=== PATIENT | female | born 1945 | race Hispanic/Latino ===

== ENCOUNTER 2018-12-26 10:06 | Emergency (ER) | payer MEDICARE, OTHER ==
[2018-12-26 10:11] VITALS: TEMP 97.7; BMI 32.9
--- NOTE | 2018-12-26 11:00 | ED PDOC ---
HPI: Hypertension/Hypotension Time Seen by Provider: 12/26/18 10:14 Chief Complaint (Nursing): High Blood Pressure Chief Complaint (Provider): High Blood Pressure History Per: Patient History/Exam Limitations: no limitations Associated Symptoms: Headache. denies: Chest Pain Additional Complaint(s): 73 year old female with a past medical history of HTN, who presents to the emergency department after being referred from cardiology. He was observed to have an elevated blood pressure while having an echocardiogram. Patient states he has not taken his blood pressure medication in over x2 weeks. He is complaining of a headache but no chest pain or shortness of breath. PMD: Jermain Romano Past Medical History Reviewed: Historical Data, Nursing Documentation, Vital Signs Vital Signs: Last Vital Signs Temp 97.7 F 12/26/18 10:11 Pulse 60 12/26/18 10:37 Resp 17 12/26/18 10:11 BP 161/87 H 12/26/18 10:37 Pulse Ox 98 12/26/18 10:11 - Medical History PMH: HTN - Surgical History Surgical History: No Surg Hx - Family History Family History: States: Unknown Family Hx - Home Medications Home Medications: Ambulatory Orders Medication Instructions Recorded Aliskiren [Tekturna] 300 mg PO DAILY #30 tab 12/26/18 - Allergies Allergies/Adverse Reactions: Allergies Allergy/AdvReac Type Severity Reaction Status Date / Time No Known Allergies Allergy Verified 12/26/18 11:01 Review of Systems ROS Statement: Except As Marked, All Systems Reviewed And Found Negative Cardiovascular: Negative for: Chest Pain Respiratory: Negative for: Shortness of Breath Neurological: Positive for: Headache Physical Exam - Reviewed Nursing Documentation Reviewed: Yes Vital Signs Reviewed: Yes - Physical Exam Appears: Positive for: Non-toxic, No Acute Distress Head Exam: Positive for: ATRAUMATIC, NORMOCEPHALIC Skin: Positive for: Normal Color, Warm, Dry Eye Exam: Positive for: Normal appearance, EOMI, PERRL Neck: Positive for: Normal, Painless ROM, Supple Cardiovascular/Chest: Positive for: Regular Rate, Rhythm. Negative for: Murmur Respiratory: Positive for: Normal Breath Sounds. Negative for: Respiratory Distress Extremity: Positive for: Normal ROM. Negative for: Pedal Edema, Deformity Neurologic/Psych: Positive for: Alert. Negative for: Motor/Sensory Deficits - ECG O2 Sat by Pulse Oximetry: 98 (RA) Pulse Ox Interpretation: Normal Medical Decision Making Medical Decision Makin Impression: elevated blood pressure Plan: Blood pressure at cardiology was 220 systolic, however at ED was 161/82 without any medication. Will discuss with PMD. Dr. Romano as to which medications to give to patient. --EKG Scribe Attestation: Documented by Richy Hickey, acting as a scribe for Jim Kelly MD. Provider Scribe Attestation: All medical record entries made by the Scribe were at my direction and personally dictated by me. I have reviewed the chart and agree that the record accurately reflects my personal performance of the history, physical exam, medical decision making, and the department course for this patient. I have also personally directed, reviewed, and agree with the discharge instructions and disposition. Disposition - Clinical Impression Clinical Impression: Hypertension - Patient ED Disposition Is Patient to be Admitted: No Counseled Patient/Family Regarding: Studies Performed, Diagnosis, Need For Followup, Rx Given - Disposition Referrals: Jermain Romano MD [Staff Provider] - Disposition: Routine/Home Disposition Time: 14:27 Condition: FAIR Prescriptions: Aliskiren [Tekturna] 300 mg PO DAILY #30 tab Instructions: High Blood Pressure in Adults Forms: [employer] (Macedonian)
[2018-12-26 14:38] VITALS: BP 116/61; PULSE 61; RESP 18; O2SAT 99
--- NOTE | 2018-12-26 17:54 | CARD ---
APPROVED REPORT Date of service: 12/26/2018 EKG Measurement Heart [id number] <Conclusion> Sinus bradycardia Nonspecific T wave abnormality Abnormal ECG
== END 2018-12-26 14:39 | disposition home or self-care (01) ==
LOC: H.ER 10:06
DX: I10 Essential (primary) hypertension (principal)

== ENCOUNTER 2019-01-31 15:08 | Inpatient (IN) | payer MEDICARE, OTHER ==
[2019-01-31 15:08] VITALS: BMI 33.4
[2019-01-31 16:26] LABS: VENOUS BLOOD GAS PCO2 82 mmHg (40-60); VENOUS BLOOD GAS PO2 42 mm/Hg (30-55); VENOUS BLOOD PH 7.04 (7.32-7.43)
[2019-01-31] MEDS ORDERED: Sodium Chloride 0.9% 1,000 ML IV STA ×2 (16:27→16:28)
[2019-01-31 17:01] LABS: BASO # 0.1 K/uL (0.0-0.2); BASO % 0.5 % (0.0-2.0); EOS % 0.1 % (0.0-4.0); HEMOGLOBIN 10.4 g/dL (12.0-16.0); LYMPH # 1.2 K/uL (1.0-4.3); LYMPH % 10.1 % (20.0-40.0); MEAN CELL VOLUME 85.3 fl (81.0-99.0); MEAN CORPUSCULAR HEMOGLOBIN 28.3 pg (27.0-31.0); MEAN CORPUSCULAR HGB CONC 33.2 g/dL (33.0-37.0); MEAN PLATELET VOLUME 10.2 fl (7.2-11.7); MONO # 0.9 K/uL (0.0-0.8); MONO % 7.8 % (0.0-10.0); NEUT # 9.3 K/uL (1.8-7.0); NEUT % 81.5 % (50.0-75.0); RBC 3.65 Mil/uL (3.80-5.20); RED CELL DISTRIBUTION WIDTH 15.2 % (11.5-14.5); WHITE BLOOD COUNT 11.4 K/uL (4.8-10.8)
--- NOTE | 2019-01-31 17:17 | RAD ---
Date of service: 01/31/2019 HISTORY: possible admission COMPARISON: 11/23/2017. FINDINGS: LUNGS: The lungs are well inflated. There is moderate pulmonary venous congestion. No focal consolidation. PLEURA: No pleural effusions or pneumothorax. CARDIOVASCULAR: There is mild cardiomegaly. There are aortic atherosclerotic calcifications present. OSSEOUS STRUCTURES: Within normal limits for the patient's age. VISUALIZED UPPER ABDOMEN: Normal. OTHER FINDINGS: None. IMPRESSION: No active pulmonary disease. Mild cardiomegaly and pulmonary venous congestion. No focal consolidation.
[2019-01-31 17:22] LABS: ALB/GLOB RATIO 1.1 (1.0-2.1); CALCIUM 9.3 mg/dL (8.4-10.2)
[2019-01-31 17:42] LABS: TROPONIN I 0.03 ng/mL (0.00-0.120)
--- NOTE | 2019-01-31 17:48 | CT ---
Date of service: 01/31/2019 PROCEDURE: CT HEAD WITHOUT CONTRAST. HISTORY: Syncope /AMS COMPARISON: 12/28/2018. TECHNIQUE: Axial computed tomography images were obtained through the head/brain without intravenous contrast. Radiation dose: Total exam DLP = 893.79 mGy-cm. This CT exam was performed using one or more of the following dose reduction techniques: Automated exposure control, adjustment of the mA and/or kV according to patient size, and/or use of iterative reconstruction technique. FINDINGS: HEMORRHAGE: There is linear asymmetric high attenuation in the right frontal extra-axial space. BRAIN: There is a punctate high attenuation focus in the right posterior frontal gyrus (series 4, image 43). There is no mass or mass effect. There is no territorial infarction. The midline sagittal structures are normal. VENTRICLES: There is mild age-related global parenchymal volume loss and proportionate enlargement of the ventricles and cortical sulci. CALVARIUM: There is no calvarial fracture or extracranial soft tissue swelling. PARANASAL SINUSES: Predominantly clear. MASTOID AIR CELLS: Predominantly clear. OTHER FINDINGS: None. IMPRESSION: 1. Suspect small right frontal subarachnoid hemorrhage and tiny posterior frontal hemorrhagic contusion. Follow-up CT scan in 12-24 hour interval is recommended to assess stability. 2. Mild age-related global parenchymal volume loss. Critical findings were discussed with LEONCIO Brown on 01/31/2019 at 5:35 p.m.
--- NOTE | 2019-01-31 19:00 | ED PDOC ---
Syncope/Near Syncope/Dizziness Time Seen by Provider: 01/31/19 15:16 Chief Complaint (Nursing): Weakness/Neurological Deficit Past Medical History Vital Signs: Last Vital Signs Temp 98.6 F 01/31/19 15:10 Pulse 85 01/31/19 15:10 Resp 18 01/31/19 15:10 BP 144/61 01/31/19 15:10 Pulse Ox 93 L 01/31/19 15:10 - Medical History PMH: Arthritis (RIGHT KNEE), Diabetes, HTN, Hypercholesterolemia, Peripheral Edema (PRESENTLY), Chronic Kidney Disease (CKD STATES KIDNEYS 38PERCENT PER PT) - Surgical History Surgical History: Tonsillectomy - Family History Family History: States: Diabetes, Hypertension - Immunization History Hx Tetanus Toxoid Vaccination: (Unsure) - Home Medications Home Medications: Ambulatory Orders Medication Instructions Recorded Aspirin [Ecotrin] 81 mg PO DAILY 08/16/17 Atorvastatin [Lipitor] 80 mg PO DAILY #30 tab 08/21/17 Clopidogrel [Plavix] 75 mg PO DAILY #30 tab 08/21/17 Losartan [Cozaar] 100 mg PO DAILY #30 tab 08/21/17 amLODIPine [Norvasc] 10 mg PO DAILY #30 tab 08/21/17 Ezetimibe [Zetia] 10 mg PO BID 11/14/17 Furosemide [Lasix] 40 mg PO DAILY 11/14/17 Vit B Comp No.3/Folic/C/Biotin 1 tab PO DAILY 11/14/17 [Drying Oven Tender-Briseida Rx Tablet] Vit D2 125 mg PO DAILY 11/14/17 Amitriptyline [Elavil] 25 mg PO HS tab 11/30/17 Fluticasone Propionate [Flonase] 1 spr SONIA BID bottle 11/30/17 Gabapentin [Neurontin] 1,200 cap PO TID 05/19/18 GlipiZIDE [Glucotrol] 5 tab PO DAILY 05/19/18 Insulin Glargine,Hum.rec.anlog 50 unit SC ACS 05/19/18 [Lantus] Spironolactone [Aldactone] 25 cap PO DAILY 05/19/18 Insulin Lispro [Humalog (Insulin 18 unit SQ TID 09/06/18 Lispro)] Acetaminophen [Tylenol Extra 1,000 mg PO Q6 PRN #100 tablet 09/28/18 Strength] traMADol [Ultram] 50 mg PO TID #15 tab 09/28/18 - Allergies Allergies/Adverse Reactions: Allergies Allergy/AdvReac Type Severity Reaction Status Date / Time No Known Allergies Allergy Verified 01/31/19 15:09 - Laboratory Results Result Diagrams: 01/31/19 16:15 01/31/19 16:15 Lab Results: pO2 42 mm/Hg (30-55) 01/31/19 16:22 VBG pH 7.04 (7.32-7.43) L* 01/31/19 16:22 VBG pCO2 82 mmHg (40-60) H* 01/31/19 16:22 VBG HCO3 15.9 mmol/L 01/31/19 16:22 VBG Total CO2 24.7 mmol/L (22-28) 01/31/19 16:22 VBG O2 Sat (Calc) 67.2 % (40-65) H 01/31/19 16:22 VBG Base Excess -10.0 mmol/L (0.0-2.0) L 01/31/19 16:22 Sodium 122.0 mmol/L (132-148) L 01/31/19 16:22 Chloride 98.0 mmol/L (98-107) 01/31/19 16:22 Glucose 235 mg/dL (65-105) H 01/31/19 16:22 Lactate 2.7 mmol/L (0.7-2.1) H 01/31/19 16:22 FiO2 21.0 % 01/31/19 16:22 Crit Value Called To Dr abhishek tom 01/31/19 16:22 Crit Value Called By [id number] 01/31/19 16:22 Crit Value Read Back Y 01/31/19 16:22 Blood Gas Notified Time 1626 01/31/19 16:22 Troponin I 0.0300 ng/mL (0.00-0.120) 01/31/19 16:15 Total Bilirubin 0.6 mg/dl (0.2-1.3) 01/31/19 16:15 AST 27 U/L (14-36) 01/31/19 16:15 ALT 28 U/L (9-52) 01/31/19 16:15 Alkaline Phosphatase 103 U/L (38-126) 01/31/19 16:15 Total Protein 7.6 G/DL (6.3-8.2) 01/31/19 16:15 Albumin 4.0 g/dL (3.5-5.0) 01/31/19 16:15 Globulin 3.6 gm/dL (2.2-3.9) 01/31/19 16:15 Albumin/Globulin Ratio 1.1 (1.0-2.1) 01/31/19 16:15 Lipase 24 U/L (23-300) 01/31/19 16:15 - ECG O2 Sat by Pulse Oximetry: 93 Medical Decision Making Medical Decision Making: Time: 151 Initial Plan: work-up for dehydration and syncope. * Labs * CXR * Accucheck * IV fluids * Influenza AB Time: 163 CT head IV fluids Blood cuture Stool culture Time: --CXR FINDINGS: LUNGS: The lungs are well inflated. There is moderate pulmonary venous congestion. No focal consolidation. PLEURA: No pleural effusions or pneumothorax. CARDIOVASCULAR: There is mild cardiomegaly. There are aortic atherosclerotic calcifications present. OSSEOUS STRUCTURES: Within normal limits for the patient's age. VISUALIZED UPPER ABDOMEN: Normal. OTHER FINDINGS: None. IMPRESSION: No active pulmonary disease. Mild cardiomegaly and pulmonary venous congestion. No focal consolidation. Time: 1736 --Admit to hospitalist, Dr. Salazar. Scribe Attestation: Documented by Kanika Galaeno, acting as a scribe for Abhishek Tom MD. Provider Scribe Attestation: All medical record entries made by the Scribe were at my direction and personally dictated by me. I have reviewed the chart and agree that the record accurately reflects my personal performance of the history, physical exam, medical decision making, and the department course for this patient. I have also personally directed, reviewed, and agree with the discharge instructions and disposition.
[2019-01-31] MEDS ORDERED: Glucagon Recombinant 1 mg Inj IM PRN (19:27)
[2019-01-31] MEDS ORDERED: Dextrose 50% SYRINGE Inj (50 ml) IV PRN (19:27)
[2019-01-31] MEDS ORDERED: INSULIN GLARGINE HUM REC ANLOG 50 UNIT SC SCH (19:30)
--- NOTE | 2019-01-31 19:37 | CP.PCM.HP ---
<Sultan Kandis - Last Filed: 01/31/19 22:05> History of Present Illness - History of Present Illness History of Present Illness: History obtained from ED nurse, patient and review of patient's medical record CC: Altered mental status and drowsiness HPI: 73 year old female with PMHx of HTN, CKD stage 3B, IDDM, renal Artery stenosis s/p stent placement in Jul 2017, Peripheral arterial disease brought in by EMS for altered mental status. Per ED nurse, patient was found by a homemaker at home lying on the floor with feces around her. In the ED, Head CT shows suspected small right frontal subarachnoid hemorrhae and tiny posterior frontal hemorrhagic contusion. Patient denies any head injury or LOC, however patient is very lethargic but she is oriented to place and person only. Patient reports she had nausea at home but denies any diarrhea or vomiting. ROS: unable to perform ROS due to patient's mental status PMD: [facility] () PMHx: HTN, CKD stage 3B, IDDM, renal artery stenosis, s/p stent in Jul, peripheral arterial disease Medications: reviewed Allergies: NKDA PSHx: former smoker, quit 5 years ago. 2 PPD smoker -11 pack years, denies EtOH and illicit drug use Surgical Hx: renal artery stent placement Jul 2017, angioplasty of right femoral artery. Family Hx: unknown Next of Kin: Farhana Beck per [facility] record). Multiple calls were made to reach out to patient's daughter but was unsuccessful. Present on Admission - Present on Admission Any Indicators Present on Admission: No Review of Systems - Review of Systems Review of Systems: Unable to obtain full ROS due to patient's mental status Past Patient History - Past Medical History & Family History Past Medical History?: Yes - Past Social History Smoking Status: Former Smoker - CARDIAC Hx Hypercholesterolemia: Yes Hx Hypertension: Yes Hx Peripheral Edema: Yes (PRESENTLY) - PULMONARY Hx Respiratory Disorders: Yes (SOB) - NEUROLOGICAL Hx Neurological Disorder: No - HEENT Hx HEENT Problems: Yes (SEASONAL ALLERGIES) - RENAL Hx Chronic Kidney Disease: Yes (CKD STATES KIDNEYS 38PERCENT PER PT) - ENDOCRINE/METABOLIC Hx Endocrine Disorders: Yes Hx Diabetes Mellitus Type 2: Yes - INTEGUMENTARY Hx Dermatological Problems: No - MUSCULOSKELETAL/RHEUMATOLOGICAL Hx Arthritis: Yes (RIGHT KNEE) - GASTROINTESTINAL Hx Gastrointestinal Disorders: No - GENITOURINARY/GYNECOLOGICAL Hx Genitourinary Disorders: No - PSYCHIATRIC Hx Psychophysiologic Disorder: No Hx Substance Use: No - SURGICAL HISTORY Hx Tonsillectomy: Yes - ANESTHESIA Hx Anesthesia: Yes Hx Anesthesia Reactions: No Hx Malignant Hyperthermia: No Meds Allergies/Adverse Reactions: Allergies Allergy/AdvReac Type Severity Reaction Status Date / Time No Known Allergies Allergy Verified 02/01/19 08:03 Physical Exam - Constitutional Appears: No Acute Distress, Chronically Ill Additional comments: Lethargic and weak - Head Exam Head Exam: NORMAL INSPECTION - Eye Exam Eye Exam: Normal appearance - ENT Exam ENT Exam: Mucous Membranes Moist - Neck Exam Neck exam: Positive for: Normal Inspection - Respiratory Exam Respiratory Exam: NORMAL BREATHING PATTERN. absent: Rhonchi, Wheezes, Respirato ry Distress Additional comments: crackles on B/L lower lung field - Cardiovascular Exam Cardiovascular Exam: REGULAR RHYTHM, +S1, +S2 - GI/Abdominal Exam GI & Abdominal Exam: Distended, Normal Bowel Sounds, Soft. absent: Tenderness - Extremities Exam Additional comments: 2+ pedal edema of right lower leg, 1+ edema of left lower leg - Neurological Exam Additional comments: drowsy oriented to place and person only - Psychiatric Exam Psychiatric exam: Normal Affect - Skin Skin Exam: Dry Results - Vital Signs Recent Vital Signs: Last Vital Signs Temp 98.6 F 01/31/19 15:10 Pulse 85 01/31/19 15:10 Resp 18 01/31/19 15:10 BP 144/61 01/31/19 15:10 Pulse Ox 93 L 01/31/19 19:03 - Labs Result Diagrams: 01/31/19 16:15 01/31/19 16:15 Labs: Laboratory Results - last 24 hr 01/31/19 01/31/19 01/31/19 15:41 16:15 16:15 WBC 11.4 H RBC 3.65 L Hgb 10.4 L Hct 31.2 L MCV 85.3 MCH 28.3 MCHC 33.2 RDW 15.2 H Plt Count 109 L D MPV 10.2 Neut % (Auto) 81.5 H Lymph % (Auto) 10.1 L [place] % (Auto) 7.8 Eos % (Auto) 0.1 Baso % (Auto) 0.5 Neut # (Auto) 9.3 H Lymph # (Auto) 1.2 [place] # (Auto) 0.9 H Eos # (Auto) 0.0 Baso # (Auto) 0.1 pO2 VBG pH VBG pCO2 VBG HCO3 VBG Total CO2 VBG O2 Sat (Calc) VBG Base Excess Glucose Lactate FiO2 Crit Value Called To Crit Value Called By Crit Value Read Back Blood Gas Notified Time Sodium 137 Potassium 4.3 Chloride 95 L Carbon Dioxide 26 Anion Gap 20 BUN 49 H Creatinine 2.1 H Est GFR ( Amer) 28 Est GFR (Non-Af Amer) 23 POC Glucose (mg/dL) 213 H Random Glucose 230 H Calcium 9.3 Phosphorus 3.8 Magnesium 2.2 Total Bilirubin 0.6 AST 27 ALT 28 Alkaline Phosphatase 103 Troponin I 0.0300 Total Protein 7.6 Albumin 4.0 Globulin 3.6 Albumin/Globulin Ratio 1.1 Lipase 24 01/31/19 16:22 WBC RBC Hgb Hct MCV MCH MCHC RDW Plt Count MPV Neut % (Auto) Lymph % (Auto) [place] % (Auto) Eos % (Auto) Baso % (Auto) Neut # (Auto) Lymph # (Auto) [place] # (Auto) Eos # (Auto) Baso # (Auto) pO2 42 VBG pH 7.04 L* VBG pCO2 82 H* VBG HCO3 15.9 VBG Total CO2 24.7 VBG O2 Sat (Calc) 67.2 H VBG Base Excess -10.0 L Glucose 235 H Lactate 2.7 H FiO2 21.0 Crit Value Called To Dr abhishek tom Crit Value Called By 6075 Crit Value Read Back Y Blood Gas Notified Time 1626 Sodium 122.0 L Potassium Chloride 98.0 Carbon Dioxide Anion Gap BUN Creatinine Est GFR ( Amer) Est GFR (Non-Af Amer) POC Glucose (mg/dL) Random Glucose Calcium Phosphorus Magnesium Total Bilirubin AST ALT Alkaline Phosphatase Troponin I Total Protein Albumin Globulin Albumin/Globulin Ratio Lipase Assessment & Plan - Assessment and Plan (Free Text) Assessment: 73 year old female with PMHx of HTN, CKD stage 3B, IDDM, renal Artery stenosis s/p stent placement in Jul 2017, Peripheral arterial disease brought in by EMS for altered mental status. Patient is admitted for AMS, lethargy , weakness and dehyration. In the ED, Head CT shows suspected small right frontal subarachnoid hemorrhage and tiny posterior frontal hemorrhagic contusion. Altered mental status and drowsiness -Admit to Telemetry -Head CT w/o contrast: suspect small right frontal subarachnoid hemorrhage and tiny posterior frontal hemorrhagic contusion. F/U CT scan in 12-24 hour interval is recommended to assess stability. -VBG shows pH of 7.04; pCO2 of 82, PO2 OF 42 and HCO3 of 15.3 -F/U head CT in AM -Troponin x 1 neg -CXR shows no acute infiltrate -ECG: f/u -f/u AM labs Weakness and Dehydration -Patient denies any diarrhea -pt had one BM (soft, not lose per nurse) -BUN/Cr 49/2.1, w/ GFR 23 -s/p 2 L NS bolus in ED -start NS@150 cc/hr -f/u AM labs Acute kidney injury on Chronic kidney disease, stage III (moderate) -hx of renal artery stenosis, stent placed in Jul 2017 -BUN/Cr 49/2.1, w/ GFR 23 -s/p 2 L NS bolus in ED -start NS@150 cc/hr Gait instability -fall precautions -PT consult Insulin dependent diabetes mellitus II -HgA1C 10.0 on 11/14/17 -c/w [id number] units qhs, Humalog 18 units TID. -c/w Accuchecks and sliding scale insulin -Hypoglycemia protocol Anemia of chronic inflammation -Hb 10.4 -continue to monitor closely Hypertension -c/w home meds -monitor DVT prophylaxis -SCDs -Platelets 109 -?subarchnoid hemorrhage on CT Code status -full code Plan discussed with Dr. Salazar <Hailey Salazar - Last Filed: 02/01/19 08:25> Results - Vital Signs Recent Vital Signs: Last Vital Signs Temp 98.3 F 02/01/19 05:15 Pulse 72 02/01/19 05:15 Resp 18 02/01/19 05:15 BP 148/67 02/01/19 05:15 Pulse Ox 98 02/01/19 05:15 - Labs Result Diagrams: 02/01/19 05:40 02/01/19 05:40 Labs: Laboratory Results - last 24 hr 01/31/19 01/31/19 01/31/19 15:41 16:15 16:15 WBC 11.4 H RBC 3.65 L Hgb 10.4 L Hct 31.2 L MCV 85.3 MCH 28.3 MCHC 33.2 RDW 15.2 H Plt Count 109 L D MPV 10.2 Neut % (Auto) 81.5 H Lymph % (Auto) 10.1 L [place] % (Auto) 7.8 Eos % (Auto) 0.1 Baso % (Auto) 0.5 Neut # (Auto) 9.3 H Lymph # (Auto) 1.2 [place] # (Auto) 0.9 H Eos # (Auto) 0.0 Baso # (Auto) 0.1 pO2 VBG pH VBG pCO2 VBG HCO3 VBG Total CO2 VBG O2 Sat (Calc) VBG Base Excess Glucose Lactate FiO2 Crit Value Called To Crit Value Called By Crit Value Read Back Blood Gas Notified Time Sodium 137 Potassium 4.3 Chloride 95 L Carbon Dioxide 26 Anion Gap 20 BUN 49 H Creatinine 2.1 H Est GFR ( Amer) 28 Est GFR (Non-Af Amer) 23 POC Glucose (mg/dL) 213 H Random Glucose 230 H Calcium 9.3 Phosphorus 3.8 Magnesium 2.2 Total Bilirubin 0.6 AST 27 ALT 28 Alkaline Phosphatase 103 Total Creatine Kinase Troponin I 0.0300 NT-Pro-B Natriuret Pep Total Protein 7.6 Albumin 4.0 Globulin 3.6 Albumin/Globulin Ratio 1.1 Lipase 24 01/31/19 01/31/19 01/31/19 16:22 20:46 22:45 WBC RBC Hgb Hct MCV MCH MCHC RDW Plt Count MPV Neut % (Auto) Lymph % (Auto) [place] % (Auto) Eos % (Auto) Baso % (Auto) Neut # (Auto) Lymph # (Auto) [place] # (Auto) Eos # (Auto) Baso # (Auto) pO2 42 VBG pH 7.04 L* VBG pCO2 82 H* VBG HCO3 15.9 VBG Total CO2 24.7 VBG O2 Sat (Calc) 67.2 H VBG Base Excess -10.0 L Glucose 235 H Lactate 2.7 H FiO2 21.0 Crit Value Called To Dr abhishek tom Crit Value Called By 6075 Crit Value Read Back Y Blood Gas Notified Time 1626 Sodium 122.0 L Potassium Chloride 98.0 Carbon Dioxide Anion Gap BUN Creatinine Est GFR ( Amer) Est GFR (Non-Af Amer) POC Glucose (mg/dL) 172 H Random Glucose Calcium Phosphorus Magnesium Total Bilirubin AST ALT Alkaline Phosphatase Total Creatine Kinase Troponin I 0.0320 NT-Pro-B Natriuret Pep Total Protein Albumin Globulin Albumin/Globulin Ratio Lipase 01/31/19 02/01/19 02/01/19 22:45 05:40 05:40 WBC 7.4 RBC 3.07 L Hgb 9.0 L Hct 26.6 L MCV 86.6 MCH 29.4 MCHC 34.0 RDW 15.1 H Plt Count 84 L D MPV 9.6 Neut % (Auto) 67.2 Lymph % (Auto) 19.8 L [place] % (Auto) 11.2 H Eos % (Auto) 1.4 Baso % (Auto) 0.4 Neut # (Auto) 5.0 Lymph # (Auto) 1.5 [place] # (Auto) 0.8 Eos # (Auto) 0.1 Baso # (Auto) 0.0 pO2 VBG pH VBG pCO2 VBG HCO3 VBG Total CO2 VBG O2 Sat (Calc) VBG Base Excess Glucose Lactate FiO2 Crit Value Called To Crit Value Called By Crit Value Read Back Blood Gas Notified Time Sodium 140 Potassium 3.8 Chloride 103 Carbon Dioxide 25 Anion Gap 16 BUN 44 H Creatinine 1.8 H Est GFR ( Amer) 33 Est GFR (Non-Af Amer) 28 POC Glucose (mg/dL) 172 H Random Glucose 175 H Calcium 8.1 L Phosphorus 3.3 Magnesium 2.2 Total Bilirubin 0.5 AST 24 ALT 31 Alkaline Phosphatase 78 Total Creatine Kinase 387 H Troponin I NT-Pro-B Natriuret Pep 2650 H Total Protein 6.4 Albumin 3.3 L Globulin 3.2 Albumin/Globulin Ratio 1.0 Lipase 02/01/19 05:54 WBC RBC Hgb Hct MCV MCH MCHC RDW Plt Count MPV Neut % (Auto) Lymph % (Auto) [place] % (Auto) Eos % (Auto) Baso % (Auto) Neut # (Auto) Lymph # (Auto) [place] # (Auto) Eos # (Auto) Baso # (Auto) pO2 VBG pH VBG pCO2 VBG HCO3 VBG Total CO2 VBG O2 Sat (Calc) VBG Base Excess Glucose Lactate FiO2 Crit Value Called To Crit Value Called By Crit Value Read Back Blood Gas Notified Time Sodium Potassium Chloride Carbon Dioxide Anion Gap BUN Creatinine Est GFR ( Amer) Est GFR (Non-Af Amer) POC Glucose (mg/dL) 167 H Random Glucose Calcium Phosphorus Magnesium Total Bilirubin AST ALT Alkaline Phosphatase Total Creatine Kinase Troponin I NT-Pro-B Natriuret Pep Total Protein Albumin Globulin Albumin/Globulin Ratio Lipase Attending/Attestation - Attestation I have personally seen and examined this patient.: Yes I have fully participated in the care of the patient.: Yes I have reviewed all pertinent clinical information: Yes Notes (Text): 02/01/19 08:25 agree with findings and plan as above.
[2019-01-31] MEDS: Sodium Chloride 0.9% 1,000 ML IV SCH (22:40)
[2019-01-31] MEDS: Insulin Regular 100 units/ml SC SCH (23:06)
[2019-02-01 06:18] LABS: BASO % 0.4 % (0.0-2.0); EOS # 0.1 K/uL (0.0-0.7); EOS % 1.4 % (0.0-4.0); LYMPH # 1.5 K/uL (1.0-4.3); LYMPH % 19.8 % (20.0-40.0); MEAN CELL VOLUME 86.6 fl (81.0-99.0); MEAN CORPUSCULAR HEMOGLOBIN 29.4 pg (27.0-31.0); MEAN PLATELET VOLUME 9.6 fl (7.2-11.7); MONO # 0.8 K/uL (0.0-0.8); MONO % 11.2 % (0.0-10.0); NEUT % 67.2 % (50.0-75.0); NRBC % 0.1 % (0.0-0.0); RBC 3.07 Mil/uL (3.80-5.20); RED CELL DISTRIBUTION WIDTH 15.1 % (11.5-14.5); WHITE BLOOD COUNT 7.4 K/uL (4.8-10.8)
[2019-02-01 06:38] LABS: ALBUMIN 3.3 g/dL (3.5-5.0); CALCIUM 8.1 mg/dL (8.4-10.2)
[2019-02-01] MEDS: Insulin Detemir 100 Units/ml Inj SC SCH ×3 (08:38→17:53)
[2019-02-01] MEDS: Insulin Regular 100 units/ml SC SCH ×4 (08:55→22:45)
[2019-02-01] MEDS ORDERED: INSULIN LISPRO 18 UNIT SQ SCH (09:00)
[2019-02-01] MEDS: Sodium Chloride 0.9% 1,000 ML IV SCH ×2 (09:30→22:52)
--- NOTE | 2019-02-01 11:05 | CP.PCM.PN ---
<Dayton Modi - Last Filed: 02/01/19 14:12> Subjective - Date & Time of Evaluation Date of Evaluation: 02/01/19 Time of Evaluation: 07:30 - Subjective Subjective: Pt seen and examined at bedside. Confirms that she believes she did not hit her head when she fell. However, reports R sided hip pain. Afebrile. Tolerating PO diet. Objective - Vital Signs/Intake and Output Vital Signs (last 24 hours): Temp Pulse Resp BP Pulse Ox 98.4 F 77 20 168/67 H 98 02/01/19 08:44 02/01/19 08:44 02/01/19 08:44 02/01/19 08:44 02/01/19 08:44 - Medications Medications: Current Medications Amlodipine Besylate (Norvasc) 10 mg PO DAILY [facility] Atorvastatin Calcium (Lipitor) 80 mg PO DAILY [facility] Dextrose (Dextrose 50% Inj) 0 ml IV STAT PRN; Protocol PRN Reason: Hypoglycemia Protocol Dextrose (Glutose 15) 0 gm PO ONCE PRN; Protocol PRN Reason: Hypoglycemia Protocol Fluticasone Propionate (Flonase) 1 spr SONIA BID [facility] Furosemide (Lasix) 40 mg PO DAILY [facility] Gabapentin (Neurontin) 1,200 mg PO TID [facility] Glucagon (Glucagen Diagnostic Kit) 0 mg IM STAT PRN; Protocol PRN Reason: Hypoglycemia Protocol Home Med (Insulin Lispro [Humalog (Insulin Lispro)]) 18 unit SQ TID [facility] Sodium Chloride (Sodium Chloride 0.9%) 1,000 mls @ 150 mls/hr IV .Q6H40M [facility] Last Admin: 01/31/19 22:40 Dose: 150 mls/hr Insulin Detemir (Levemir) 50 units SC AC [facility] Insulin Human Regular (Humulin R) 0 units SC ACHS [facility]; Protocol Last Admin: 01/31/19 23:06 Dose: Not Given Losartan Potassium (Cozaar) 100 mg PO DAILY [facility] Ondansetron HCl (Zofran Inj) 4 mg IVP Q6 PRN PRN Reason: Nausea/Vomiting Pantoprazole Sodium (Protonix Ec Tab) 40 mg PO DAILY [facility] Spironolactone (Aldactone) 25 mg PO DAILY [facility] Vitamin B Complex/Vit C/Folic Acid (Nephro-Briseida) 1 tab PO DAILY [facility] - Labs Labs: 02/01/19 05:40 02/01/19 05:40 - Eye Exam Eye Exam: EOMI - ENT Exam ENT Exam: Mucous Membranes Moist - Respiratory Exam Respiratory Exam: Rales (bl lower lung). absent: Wheezes - Cardiovascular Exam Cardiovascular Exam: +S1, +S2 - GI/Abdominal Exam GI & Abdominal Exam: Soft, Normal Bowel Sounds. absent: Tenderness - Neurological Exam Neurological Exam: Alert, Awake - Psychiatric Exam Psychiatric exam: Normal Affect, Normal Mood Assessment and Plan - Assessment and Plan (Free Text) Assessment: 73 year old female with PMHx of HTN, CKD stage 3B, IDDM, renal artery stenosis s/p stent placement in Jul 2017, Peripheral arterial disease brought in by EMS for altered mental status. Patient is admitted for AMS, lethargy, weakness and dehydration. In the ED, Head CT shows suspected small right frontal subarachnoid hemorrhage and tiny posterior frontal hemorrhagic contusion. Plan: Head CT w/o contrast: suspect small right frontal subarachnoid hemorrhage and tiny posterior frontal hemorrhagic contusion. F/U CT scan in 12-24 hour interval is recommended to assess stability. Repeat head CT: Diminishing trace right frontal subarachnoid hemorrhage. This could be related to post trauma given this patient's prior history of syncope. Consider CT angiography of the brain for added evaluation of the right frontal region. CXR: shows no acute infiltrate XR hip/pelvis: pending Altered mental status and drowsiness -Admit to Telemetry -VBG shows pH of 7.04; pCO2 of 82, PO2 OF 42 and HCO3 of 15.3 -Troponin x 1 neg -Neurosurgy: Dr. Damian: recs appreciated -Neurology: Dr. Fisher: recs appreciated -f/u AM labs Weakness and Dehydration -Patient denies any diarrhea -pt had one BM (soft, not lose per nurse) -BUN/Cr 49/2.1, w/ GFR 23 --> 44/1.8/28, improving -s/p 2 L NS bolus in ED -NS@150 cc/hr -f/u AM labs Acute kidney injury on Chronic kidney disease, stage III (moderate) -hx of renal artery stenosis, stent placed in Jul 2017 -BUN/Cr 49/2.1, w/ GFR 23 -s/p 2 L NS bolus in ED -start NS@150 cc/hr Gait instability -R hip pain -fall precautions -PT consult -XR fall: hip and pelvis; pending Insulin dependent diabetes mellitus II -HgA1C 10.0 on 11/14/17 -c/w Lantus 50 units qhs, Humalog 18 units TID. -c/w Accuchecks and sliding scale insulin -Hypoglycemia protocol Anemia of chronic inflammation -Hb 10.4 --> 9.0 -continue to monitor closely Hypertension -c/w home meds -monitor DVT prophylaxis -SCDs -Platelets 109 --> 84 -subarchnoid hemorrhage on CT Code status -full code Case and plan d/w Dr. Celestine Modi MD PGY2 <Dottie Sprague - Last Filed: 02/01/19 16:19> Objective - Vital Signs/Intake and Output Vital Signs (last 24 hours): Temp Pulse Resp BP Pulse Ox 98.9 F 73 17 134/63 99 02/01/19 15:40 02/01/19 15:40 02/01/19 15:40 02/01/19 15:40 02/01/19 15:40 - Medications Medications: Current Medications Amlodipine Besylate (Norvasc) 10 mg PO DAILY [facility] Last Admin: 02/01/19 12:20 Dose: 10 mg Atorvastatin Calcium (Lipitor) 80 mg PO DAILY [facility] Last Admin: 02/01/19 12:16 Dose: 80 mg Dextrose (Dextrose 50% Inj) 0 ml IV STAT PRN; Protocol PRN Reason: Hypoglycemia Protocol Dextrose (Glutose 15) 0 gm PO ONCE PRN; Protocol PRN Reason: Hypoglycemia Protocol Fluticasone Propionate (Flonase) 1 spr SONIA BID [facility] Last Admin: 02/01/19 13:36 Dose: 1 spr Furosemide (Lasix) 40 mg PO DAILY [facility] Last Admin: 02/01/19 12:15 Dose: 40 mg Gabapentin (Neurontin) 1,200 mg PO TID [facility] Last Admin: 02/01/19 12:17 Dose: 1,200 mg Glucagon (Glucagen Diagnostic Kit) 0 mg IM STAT PRN; Protocol PRN Reason: Hypoglycemia Protocol Sodium Chloride (Sodium Chloride 0.9%) 1,000 mls @ 150 mls/hr IV .Q6H40M [facility] Last Admin: 01/31/19 22:40 Dose: 150 mls/hr Insulin Detemir (Levemir) 50 units SC AC [facility] Last Admin: 02/01/19 13:41 Dose: 50 units Insulin Human Lispro (Humalog) 18 units SC TID [facility] Insulin Human Regular (Humulin R) 0 units SC ACHS [facility]; Protocol Last Admin: 02/01/19 12:14 Dose: 4 unit Losartan Potassium (Cozaar) 100 mg PO DAILY [facility] Last Admin: 02/01/19 12:12 Dose: 100 mg Ondansetron HCl (Zofran Inj) 4 mg IVP Q6 PRN PRN Reason: Nausea/Vomiting Pantoprazole Sodium (Protonix Ec Tab) 40 mg PO DAILY [facility] Last Admin: 02/01/19 12:19 Dose: 40 mg Spironolactone (Aldactone) 25 mg PO DAILY [facility] Last Admin: 02/01/19 12:11 Dose: 25 mg Vitamin B Complex/Vit C/Folic Acid (Nephro-Briseida) 1 tab PO DAILY [facility] Last Admin: 02/01/19 12:16 Dose: 1 tab - Labs Labs: 02/01/19 05:40 02/01/19 05:40 Attending/Attestation - Attestation I have personally seen and examined this patient.: Yes I have fully participated in the care of the patient.: Yes I have reviewed all pertinent clinical information, including history, physical exam and plan: Yes Notes (Text): 1. Small SAH/Contusion 2. Fall at Home, Gait Instability 3. Hip Pain 4. Thrombocytopenia 5. MELE on CKD Stage III 5. HTN 6. DM Type II, Insulin requiring 7. PVD - rpt CT of head shows diminishing SAH - Neurosurgery consulted- cleared pt ( minimal bleed0 - Hip /Pelvis xray - Physical therapy - cont Levemir and Lispro - cont Norvasc and Losartan , Aldactone and Lasix - monitor Platelet - Hold Off on ASA and Plavix for now due to SAH - no Lovenox due to SAH and low platelet
[2019-02-01] MEDS: Multivitamin Vitamin B Complex (Nephro-Vite) Tab PO SCH (12:16)
[2019-02-01] MEDS: Pantoprazole 40 mg EC Tab PO SCH (12:19)
--- NOTE | 2019-02-01 12:20 | CT ---
Date of service: 02/01/2019 PROCEDURE: CT HEAD WITHOUT CONTRAST. HISTORY: f/u on right frontal subarachnoid hemorrhage COMPARISON: Noncontrast head CT 01/31/2019. TECHNIQUE: Axial computed tomography images were obtained through the head/brain without intravenous contrast. Radiation dose: Total exam DLP = 906.58 mGy-cm. This CT exam was performed using one or more of the following dose reduction techniques: Automated exposure control, adjustment of the mA and/or kV according to patient size, and/or use of iterative reconstruction technique. FINDINGS: HEMORRHAGE: Diminishing trace right frontal subarachnoid hemorrhage. No new hemorrhage identified elsewhere BRAIN: Minimal diffuse cerebral atrophy reiterated. Corticomedullary differentiation is stable and unremarkable with intrinsic densities at the brain remaining grossly within normal limits above and below the tentorium including the brainstem. VENTRICLES: Unremarkable. No hydrocephalus. CALVARIUM: Unremarkable. PARANASAL SINUSES: Unremarkable as visualized. No significant inflammatory changes. MASTOID AIR CELLS: Unremarkable as visualized. No inflammatory changes. OTHER FINDINGS: None. IMPRESSION: Diminishing trace right frontal subarachnoid hemorrhage. This could be related to post trauma given this patient's prior history of syncope. Consider CT angiography of the brain for added evaluation of the right frontal region.
--- NOTE | 2019-02-01 13:37 | CP.PCM.CON ---
History of Present Illness - History of Present Illness History of Present Illness: Dictated Min R Jadiel MILLER of no clinical import Past Patient History - Past Medical History & Family History Past Medical History?: Yes - Past Social History Smoking Status: Never Smoked - CARDIAC Hx Hypercholesterolemia: Yes Hx Hypertension: Yes Hx Peripheral Edema: Yes (PRESENTLY) - PULMONARY Hx Respiratory Disorders: Yes (SOB) - NEUROLOGICAL Hx Neurological Disorder: No - HEENT Hx HEENT Problems: Yes (SEASONAL ALLERGIES) - RENAL Hx Chronic Kidney Disease: Yes (CKD STATES KIDNEYS 38PERCENT PER PT) - ENDOCRINE/METABOLIC Hx Endocrine Disorders: Yes Hx Diabetes Mellitus Type 2: Yes - HEMATOLOGICAL/ONCOLOGICAL Hx Blood Disorders: No - INTEGUMENTARY Hx Dermatological Problems: No - MUSCULOSKELETAL/RHEUMATOLOGICAL Hx Arthritis: Yes (RIGHT KNEE) Hx Falls: Yes - GASTROINTESTINAL Hx Gastrointestinal Disorders: No - GENITOURINARY/GYNECOLOGICAL Hx Genitourinary Disorders: No - PSYCHIATRIC Hx Psychophysiologic Disorder: No Hx Substance Use: No - SURGICAL HISTORY Hx Surgeries: Yes Hx Tonsillectomy: Yes - ANESTHESIA Hx Anesthesia: Yes Hx Anesthesia Reactions: No Hx Malignant Hyperthermia: No Has any member of the family had a problem w/ anesthesia?: No Meds Allergies/Adverse Reactions: Allergies Allergy/AdvReac Type Severity Reaction Status Date / Time No Known Allergies Allergy Verified 02/01/19 08:03 - Medications Medications: Current Medications Amlodipine Besylate (Norvasc) 10 mg PO DAILY [facility] Last Admin: 02/01/19 12:20 Dose: 10 mg Atorvastatin Calcium (Lipitor) 80 mg PO DAILY [facility] Last Admin: 02/01/19 12:16 Dose: 80 mg Dextrose (Dextrose 50% Inj) 0 ml IV STAT PRN; Protocol PRN Reason: Hypoglycemia Protocol Dextrose (Glutose 15) 0 gm PO ONCE PRN; Protocol PRN Reason: Hypoglycemia Protocol Fluticasone Propionate (Flonase) 1 spr SONIA BID [facility] Furosemide (Lasix) 40 mg PO DAILY [facility] Last Admin: 02/01/19 12:15 Dose: 40 mg Gabapentin (Neurontin) 1,200 mg PO TID [facility] Last Admin: 02/01/19 12:17 Dose: 1,200 mg Glucagon (Glucagen Diagnostic Kit) 0 mg IM STAT PRN; Protocol PRN Reason: Hypoglycemia Protocol Sodium Chloride (Sodium Chloride 0.9%) 1,000 mls @ 150 mls/hr IV .Q6H40M [facility] Last Admin: 01/31/19 22:40 Dose: 150 mls/hr Insulin Detemir (Levemir) 50 units SC AC [facility] Last Admin: 02/01/19 08:38 Dose: Not Given Insulin Human Lispro (Humalog) 18 units SC TID [facility] Insulin Human Regular (Humulin R) 0 units SC ACHS [facility]; Protocol Last Admin: 02/01/19 12:14 Dose: 4 unit Losartan Potassium (Cozaar) 100 mg PO DAILY [facility] Last Admin: 02/01/19 12:12 Dose: 100 mg Ondansetron HCl (Zofran Inj) 4 mg IVP Q6 PRN PRN Reason: Nausea/Vomiting Pantoprazole Sodium (Protonix Ec Tab) 40 mg PO DAILY [facility] Last Admin: 02/01/19 12:19 Dose: 40 mg Spironolactone (Aldactone) 25 mg PO DAILY [facility] Last Admin: 02/01/19 12:11 Dose: 25 mg Vitamin B Complex/Vit C/Folic Acid (Nephro-Briseida) 1 tab PO DAILY [facility] Last Admin: 02/01/19 12:16 Dose: 1 tab Results - Vital Signs Recent Vital Signs: Last Vital Signs Temp 98.4 F 02/01/19 08:44 Pulse 77 02/01/19 12:20 Resp 20 02/01/19 08:44 BP 155/63 H 02/01/19 12:20 Pulse Ox 98 02/01/19 08:44 - Labs Result Diagrams: 02/01/19 05:40 02/01/19 05:40 Labs: Laboratory Results - last 24 hr 01/31/19 01/31/19 01/31/19 15:41 16:15 16:15 WBC 11.4 H RBC 3.65 L Hgb 10.4 L Hct 31.2 L MCV 85.3 MCH 28.3 MCHC 33.2 RDW 15.2 H Plt Count 109 L D MPV 10.2 Neut % (Auto) 81.5 H Lymph % (Auto) 10.1 L Whitman % (Auto) 7.8 Eos % (Auto) 0.1 Baso % (Auto) 0.5 Neut # (Auto) 9.3 H Lymph # (Auto) 1.2 Whitman # (Auto) 0.9 H Eos # (Auto) 0.0 Baso # (Auto) 0.1 pO2 VBG pH VBG pCO2 VBG HCO3 VBG Total CO2 VBG O2 Sat (Calc) VBG Base Excess Glucose Lactate FiO2 Crit Value Called To Crit Value Called By Crit Value Read Back Blood Gas Notified Time Sodium 137 Potassium 4.3 Chloride 95 L Carbon Dioxide 26 Anion Gap 20 BUN 49 H Creatinine 2.1 H Est GFR ( Amer) 28 Est GFR (Non-Af Amer) 23 POC Glucose (mg/dL) 213 H Random Glucose 230 H Hemoglobin A1c Calcium 9.3 Phosphorus 3.8 Magnesium 2.2 Total Bilirubin 0.6 AST 27 ALT 28 Alkaline Phosphatase 103 Total Creatine Kinase Troponin I 0.0300 NT-Pro-B Natriuret Pep Total Protein 7.6 Albumin 4.0 Globulin 3.6 Albumin/Globulin Ratio 1.1 Lipase 24 01/31/19 01/31/19 01/31/19 16:22 20:46 20:46 WBC RBC Hgb Hct MCV MCH MCHC RDW Plt Count MPV Neut % (Auto) Lymph % (Auto) Whitman % (Auto) Eos % (Auto) Baso % (Auto) Neut # (Auto) Lymph # (Auto) Whitman # (Auto) Eos # (Auto) Baso # (Auto) pO2 42 VBG pH 7.04 L* VBG pCO2 82 H* VBG HCO3 15.9 VBG Total CO2 24.7 VBG O2 Sat (Calc) 67.2 H VBG Base Excess -10.0 L Glucose 235 H Lactate 2.7 H FiO2 21.0 Crit Value Called To Dr abhishek tom Crit Value Called By 6075 Crit Value Read Back Y Blood Gas Notified Time 1626 Sodium 122.0 L Potassium Chloride 98.0 Carbon Dioxide Anion Gap BUN Creatinine Est GFR ( Amer) Est GFR (Non-Af Amer) POC Glucose (mg/dL) 172 H 172 H Random Glucose Hemoglobin A1c Calcium Phosphorus Magnesium Total Bilirubin AST ALT Alkaline Phosphatase Total Creatine Kinase Troponin I NT-Pro-B Natriuret Pep Total Protein Albumin Globulin Albumin/Globulin Ratio Lipase 01/31/19 01/31/19 02/01/19 22:45 22:45 05:40 WBC 7.4 RBC 3.07 L Hgb 9.0 L Hct 26.6 L MCV 86.6 MCH 29.4 MCHC 34.0 RDW 15.1 H Plt Count 84 L D MPV 9.6 Neut % (Auto) 67.2 Lymph % (Auto) 19.8 L Whitman % (Auto) 11.2 H Eos % (Auto) 1.4 Baso % (Auto) 0.4 Neut # (Auto) 5.0 Lymph # (Auto) 1.5 Whitman # (Auto) 0.8 Eos # (Auto) 0.1 Baso # (Auto) 0.0 pO2 VBG pH VBG pCO2 VBG HCO3 VBG Total CO2 VBG O2 Sat (Calc) VBG Base Excess Glucose Lactate FiO2 Crit Value Called To Crit Value Called By Crit Value Read Back Blood Gas Notified Time Sodium Potassium Chloride Carbon Dioxide Anion Gap BUN Creatinine Est GFR ( Amer) Est GFR (Non-Af Amer) POC Glucose (mg/dL) 172 H Random Glucose Hemoglobin A1c Calcium Phosphorus Magnesium Total Bilirubin AST ALT Alkaline Phosphatase Total Creatine Kinase Troponin I 0.0320 NT-Pro-B Natriuret Pep Total Protein Albumin Globulin Albumin/Globulin Ratio Lipase 02/01/19 02/01/19 02/01/19 05:40 05:40 05:54 WBC RBC Hgb Hct MCV MCH MCHC RDW Plt Count MPV Neut % (Auto) Lymph % (Auto) Whitman % (Auto) Eos % (Auto) Baso % (Auto) Neut # (Auto) Lymph # (Auto) Whitman # (Auto) Eos # (Auto) Baso # (Auto) pO2 VBG pH VBG pCO2 VBG HCO3 VBG Total CO2 VBG O2 Sat (Calc) VBG Base Excess Glucose Lactate FiO2 Crit Value Called To Crit Value Called By Crit Value Read Back Blood Gas Notified Time Sodium 140 Potassium 3.8 Chloride 103 Carbon Dioxide 25 Anion Gap 16 BUN 44 H Creatinine 1.8 H Est GFR ( Amer) 33 Est GFR (Non-Af Amer) 28 POC Glucose (mg/dL) 167 H Random Glucose 175 H Hemoglobin A1c 10.1 H Calcium 8.1 L Phosphorus 3.3 Magnesium 2.2 Total Bilirubin 0.5 AST 24 ALT 31 Alkaline Phosphatase 78 Total Creatine Kinase 387 H Troponin I NT-Pro-B Natriuret Pep 2650 H Total Protein 6.4 Albumin 3.3 L Globulin 3.2 Albumin/Globulin Ratio 1.0 Lipase 02/01/19 11:12 WBC RBC Hgb Hct MCV MCH MCHC RDW Plt Count MPV Neut % (Auto) Lymph % (Auto) Whitman % (Auto) Eos % (Auto) Baso % (Auto) Neut # (Auto) Lymph # (Auto) Whitman # (Auto) Eos # (Auto) Baso # (Auto) pO2 VBG pH VBG pCO2 VBG HCO3 VBG Total CO2 VBG O2 Sat (Calc) VBG Base Excess Glucose Lactate FiO2 Crit Value Called To Crit Value Called By Crit Value Read Back Blood Gas Notified Time Sodium Potassium Chloride Carbon Dioxide Anion Gap BUN Creatinine Est GFR ( Amer) Est GFR (Non-Af Amer) POC Glucose (mg/dL) 268 H Random Glucose Hemoglobin A1c Calcium Phosphorus Magnesium Total Bilirubin AST ALT Alkaline Phosphatase Total Creatine Kinase Troponin I NT-Pro-B Natriuret Pep Total Protein Albumin Globulin Albumin/Globulin Ratio Lipase
[2019-02-01] MEDS: Insulin Lispro (humaLOG) 100 Units/ml Inj SC SCH ×2 (13:54→17:53)
--- NOTE | 2019-02-01 15:41 | CARD ---
APPROVED REPORT Date of service: 02/01/2019 EKG Measurement Heart [id number] <Conclusion> Normal sinus rhythm Nonspecific T wave abnormality Abnormal ECG
--- NOTE | 2019-02-02 00:08 | CP.PCM.CON ---
History of Present Illness - History of Present Illness History of Present Illness: Neurology consult dictated. MIss Beck sustained a subarachnoid hemorrhage and is stable. Repeat CT head srinivasan. Appreciate neurosurgical consult. Thank you DR. marcial Neurology Past Patient History - Past Medical History & Family History Past Medical History?: Yes - Past Social History Smoking Status: Never Smoked - CARDIAC Hx Hypercholesterolemia: Yes Hx Hypertension: Yes Hx Peripheral Edema: Yes (PRESENTLY) - PULMONARY Hx Respiratory Disorders: Yes (SOB) - NEUROLOGICAL Hx Neurological Disorder: No - HEENT Hx HEENT Problems: Yes (SEASONAL ALLERGIES) - RENAL Hx Chronic Kidney Disease: Yes (CKD STATES KIDNEYS 38PERCENT PER PT) - ENDOCRINE/METABOLIC Hx Endocrine Disorders: Yes Hx Diabetes Mellitus Type 2: Yes - HEMATOLOGICAL/ONCOLOGICAL Hx Blood Disorders: No - INTEGUMENTARY Hx Dermatological Problems: No - MUSCULOSKELETAL/RHEUMATOLOGICAL Hx Arthritis: Yes (RIGHT KNEE) Hx Falls: Yes - GASTROINTESTINAL Hx Gastrointestinal Disorders: No - GENITOURINARY/GYNECOLOGICAL Hx Genitourinary Disorders: No - PSYCHIATRIC Hx Psychophysiologic Disorder: No Hx Substance Use: No - SURGICAL HISTORY Hx Surgeries: Yes Hx Tonsillectomy: Yes - ANESTHESIA Hx Anesthesia: Yes Hx Anesthesia Reactions: No Hx Malignant Hyperthermia: No Has any member of the family had a problem w/ anesthesia?: No Meds Allergies/Adverse Reactions: Allergies Allergy/AdvReac Type Severity Reaction Status Date / Time No Known Allergies Allergy Verified 02/01/19 08:03 - Medications Medications: Current Medications Amlodipine Besylate (Norvasc) 10 mg PO DAILY [facility] Last Admin: 02/01/19 12:20 Dose: 10 mg Atorvastatin Calcium (Lipitor) 80 mg PO DAILY [facility] Last Admin: 02/01/19 12:16 Dose: 80 mg Dextrose (Dextrose 50% Inj) 0 ml IV STAT PRN; Protocol PRN Reason: Hypoglycemia Protocol Dextrose (Glutose 15) 0 gm PO ONCE PRN; Protocol PRN Reason: Hypoglycemia Protocol Fluticasone Propionate (Flonase) 1 spr SONIA BID [facility] Last Admin: 02/01/19 17:51 Dose: 1 spr Furosemide (Lasix) 40 mg PO DAILY [facility] Last Admin: 02/01/19 12:15 Dose: 40 mg Gabapentin (Neurontin) 1,200 mg PO TID [facility] Last Admin: 02/01/19 17:55 Dose: 1,200 mg Glucagon (Glucagen Diagnostic Kit) 0 mg IM STAT PRN; Protocol PRN Reason: Hypoglycemia Protocol Sodium Chloride (Sodium Chloride 0.9%) 1,000 mls @ 150 mls/hr IV .Q6H40M [facility] Last Admin: 02/01/19 22:52 Dose: 150 mls/hr Insulin Detemir (Levemir) 50 units SC AC [facility] Last Admin: 02/01/19 17:53 Dose: 50 units Insulin Human Lispro (Humalog) 18 units SC TID [facility] Last Admin: 02/01/19 17:53 Dose: Not Given Insulin Human Regular (Humulin R) 0 units SC ACHS [facility]; Protocol Last Admin: 02/01/19 22:45 Dose: Not Given Losartan Potassium (Cozaar) 100 mg PO DAILY [facility] Last Admin: 02/01/19 12:12 Dose: 100 mg Ondansetron HCl (Zofran Inj) 4 mg IVP Q6 PRN PRN Reason: Nausea/Vomiting Pantoprazole Sodium (Protonix Ec Tab) 40 mg PO DAILY [facility] Last Admin: 02/01/19 12:19 Dose: 40 mg Spironolactone (Aldactone) 25 mg PO DAILY [facility] Last Admin: 02/01/19 12:11 Dose: 25 mg Vitamin B Complex/Vit C/Folic Acid (Nephro-Briseida) 1 tab PO DAILY [facility] Last Admin: 02/01/19 12:16 Dose: 1 tab Results - Vital Signs Recent Vital Signs: Last Vital Signs Temp 99.2 F 02/01/19 19:52 Pulse 73 02/01/19 19:52 Resp 18 02/01/19 19:52 BP 145/71 02/01/19 19:52 Pulse Ox 99 02/01/19 19:52 - Labs Result Diagrams: 02/01/19 05:40 02/01/19 05:40 Labs: Laboratory Results - last 24 hr 01/31/19 02/01/19 02/01/19 20:46 05:40 05:40 WBC 7.4 RBC 3.07 L Hgb 9.0 L Hct 26.6 L MCV 86.6 MCH 29.4 MCHC 34.0 RDW 15.1 H Plt Count 84 L D MPV 9.6 Neut % (Auto) 67.2 Lymph % (Auto) 19.8 L Lanier % (Auto) 11.2 H Eos % (Auto) 1.4 Baso % (Auto) 0.4 Neut # (Auto) 5.0 Lymph # (Auto) 1.5 Lanier # (Auto) 0.8 Eos # (Auto) 0.1 Baso # (Auto) 0.0 Sodium 140 Potassium 3.8 Chloride 103 Carbon Dioxide 25 Anion Gap 16 BUN 44 H Creatinine 1.8 H Est GFR ( Amer) 33 Est GFR (Non-Af Amer) 28 POC Glucose (mg/dL) 172 H Random Glucose 175 H Hemoglobin A1c Calcium 8.1 L Phosphorus 3.3 Magnesium 2.2 Total Bilirubin 0.5 AST 24 ALT 31 Alkaline Phosphatase 78 Total Creatine Kinase 387 H NT-Pro-B Natriuret Pep 2650 H Total Protein 6.4 Albumin 3.3 L Globulin 3.2 Albumin/Globulin Ratio 1.0 02/01/19 02/01/19 02/01/19 05:40 05:54 11:12 WBC RBC Hgb Hct MCV MCH MCHC RDW Plt Count MPV Neut % (Auto) Lymph % (Auto) Lanier % (Auto) Eos % (Auto) Baso % (Auto) Neut # (Auto) Lymph # (Auto) Lanier # (Auto) Eos # (Auto) Baso # (Auto) Sodium Potassium Chloride Carbon Dioxide Anion Gap BUN Creatinine Est GFR ( Amer) Est GFR (Non-Af Amer) POC Glucose (mg/dL) 167 H 268 H Random Glucose Hemoglobin A1c 10.1 H Calcium Phosphorus Magnesium Total Bilirubin AST ALT Alkaline Phosphatase Total Creatine Kinase NT-Pro-B Natriuret Pep Total Protein Albumin Globulin Albumin/Globulin Ratio 02/01/19 02/01/19 16:18 21:44 WBC RBC Hgb Hct MCV MCH MCHC RDW Plt Count MPV Neut % (Auto) Lymph % (Auto) Lanier % (Auto) Eos % (Auto) Baso % (Auto) Neut # (Auto) Lymph # (Auto) Lanier # (Auto) Eos # (Auto) Baso # (Auto) Sodium Potassium Chloride Carbon Dioxide Anion Gap BUN Creatinine Est GFR ( Amer) Est GFR (Non-Af Amer) POC Glucose (mg/dL) 243 H 103 Random Glucose Hemoglobin A1c Calcium Phosphorus Magnesium Total Bilirubin AST ALT Alkaline Phosphatase Total Creatine Kinase NT-Pro-B Natriuret Pep Total Protein Albumin Globulin Albumin/Globulin Ratio
[2019-02-02 06:11] LABS: HEMOGLOBIN 8.2 g/dL (12.0-16.0); MEAN CORPUSCULAR HEMOGLOBIN 29.3 pg (27.0-31.0); RBC 2.8 Mil/uL (3.80-5.20); RED CELL DISTRIBUTION WIDTH 14.5 % (11.5-14.5); WHITE BLOOD COUNT 7.7 K/uL (4.8-10.8)
[2019-02-02 06:27] LABS: CALCIUM 7.7 mg/dL (8.4-10.2)
[2019-02-02] MEDS: Insulin Regular 100 units/ml SC SCH ×3 (06:39→17:36)
[2019-02-02 07:16] LABS: SQUAMOUS EPITHIAL 3 /hpf (0-5); URINE BACTERIA MANY (<OCC); URINE BILIRUBIN NEGATIVE (NEGATIVE); URINE BLOOD SMALL (NEGATIVE); URINE CLARITY CLOUDY (Clear); URINE COLOR YELLOW (YELLOW); URINE GLUCOSE (UA) NEG (NEGATIVE); URINE LEUKOCYTE ESTERASE LARGE Leu/uL (Negative); URINE PROTEIN 100 mg/dL (NEGATIVE); URINE UROBILINOGEN 0.2-1.0 mg/dL (0.2-1.0)
--- NOTE | 2019-02-02 08:18 | CON ---
DATE: 02/01/2019 HISTORY OF PRESENT ILLNESS: This is a 73-year-old woman with a considerable past medical history, who was basically found down in her own excrement today by her aide. She does not recall how she ended up there. Obviously, a loss of consciousness, and doubt it would be a syncopal episode. CT a very small traumatic subarachnoid hemorrhage in the right frontal lobe. Interviewing her today, she really has no complaints referable to this. Past medical history, medications, allergies, etc. all reviewed in the EMR. PHYSICAL EXAMINATION: NEUROLOGIC: She has a Orin Coma Score of 16. She is quiet, awake, alert, and fully oriented. She is conversant. Speech is fluent and appropriate. She follows all commands. Cranial nerves are all intact. She has no drift. She has 5/5 strength throughout. LABORATORY DATA: CT of the brain shows a tiny traumatic subarachnoid hemorrhage in the right frontal lobe. This is of no clinical significance, and she is asymptomatic. IMPRESSION AND PLAN: We have no recommendations from a neurosurgical standpoint. The patient obviously should undergo a syncope workup. Richard Damian MD
--- NOTE | 2019-02-02 08:20 | CON ---
DATE: 02/01/2019 HISTORY OF PRESENT ILLNESS: The patient is a 73-year-old woman who presented to the emergency room on 01/31/2019 at 1316 hours, having sustained a fall and with some brief loss of consciousness. There was no seizure activity noted. There was no generalized tonic-clonic seizure. The patient had altered mental status, found by a homemaker, lying in the floor. . Head CT in the emergency room showed small right frontal subarachnoid hemorrhage and tiny posterior frontal hemorrhagic contusion. It is uncertain how long the patient was down. The patient has no history of epilepsy. Today on exam, the patient was alert and oriented x3. She has no recollection of the event. She has no history of epilepsy. REVIEW OF SYSTEMS: There is no headache. There is no nausea. There is no vomiting. There is no diarrhea. There is no weakness. PAST MEDICAL HISTORY: Hypertension, CKD stage 3b, IDDM, aortic stenosis, status post stent placement in 07/2017, peripheral artery disease. PAST SURGICAL HISTORY: As above. SOCIAL HISTORY: Former smoker, quit five years ago, two packs per day, 11 pack-years. There is no alcohol. There is no illicit drug use. FAMILY HISTORY: Unknown. ALLERGIES: NO KNOWN DRUG ALLERGIES. PHYSICAL EXAMINATION: GENERAL: The patient is alert and oriented x3. She is quite weak. She is bed bound, but she follows commands appropriately. NEUROLOGIC: Mini mental status is 25/30. The patient does not get the date right nor she get the names. She follows commands vaguely; this is because of volition. Cranial nerves II through XII are normal. Extraocular movements are intact. Visual tobias are full. Motor upper and lower limb bilaterally 5/5. Sensory is intact to fine touch and pin. Gait is not tested, the patient refuses. Reflexes are 2+ upper and lower limbs bilaterally. DIAGNOSTIC DATA: CAT scan of the head was done which shows the following: Trace right frontal subarachnoid hemorrhage. No edema. No mass effect. Labs are within normal limits. IMPRESSION: This is a 73-year-old woman with atraumatic subarachnoid hemorrhage, which is decreasing in size. Neurosurgical input appreciated. There is no intervention at this time. PLAN: Repeat CT head in the a.m. Our team will follow. Please keep this patient off of anticoagulants. Thank you for this interesting consult. Antoinette Fisher MD cc: Hailey Salazar DO
[2019-02-02] MEDS: Insulin Detemir 100 Units/ml Inj SC SCH ×3 (08:58→17:38)
[2019-02-02] MEDS: Insulin Lispro (humaLOG) 100 Units/ml Inj SC SCH ×3 (09:17→17:35)
[2019-02-02] MEDS: Multivitamin Vitamin B Complex (Nephro-Vite) Tab PO SCH (09:20)
[2019-02-02] MEDS: Pantoprazole 40 mg EC Tab PO SCH (09:21)
--- NOTE | 2019-02-02 09:28 | CP.PCM.PN ---
Subjective - Date & Time of Evaluation Date of Evaluation: 02/02/19 Time of Evaluation: 07:15 - Subjective Subjective: Pt seen and examined at bedside. Denies acute overnight events. Tolerating PO diet. Regular bm. Undergoing PT eval now. Objective - Vital Signs/Intake and Output Vital Signs (last 24 hours): Temp Pulse Resp BP Pulse Ox 98.1 F 67 18 140/59 L 98 02/02/19 08:28 02/02/19 09:20 02/02/19 08:28 02/02/19 09:20 02/02/19 08:28 - Medications Medications: Current Medications Amlodipine Besylate (Norvasc) 10 mg PO DAILY [facility] Last Admin: 02/02/19 09:20 Dose: 10 mg Atorvastatin Calcium (Lipitor) 80 mg PO DAILY [facility] Last Admin: 02/02/19 09:19 Dose: 80 mg Dextrose (Dextrose 50% Inj) 0 ml IV STAT PRN; Protocol PRN Reason: Hypoglycemia Protocol Dextrose (Glutose 15) 0 gm PO ONCE PRN; Protocol PRN Reason: Hypoglycemia Protocol Fluticasone Propionate (Flonase) 1 spr SONIA BID [facility] Last Admin: 02/02/19 09:16 Dose: 1 spr Furosemide (Lasix) 40 mg PO DAILY [facility] Last Admin: 02/02/19 09:17 Dose: 40 mg Gabapentin (Neurontin) 1,200 mg PO TID [facility] Last Admin: 02/02/19 09:20 Dose: 1,200 mg Glucagon (Glucagen Diagnostic Kit) 0 mg IM STAT PRN; Protocol PRN Reason: Hypoglycemia Protocol Ceftriaxone Sodium 1 gm/ (Sodium Chloride) 100 mls @ 100 mls/hr IVPB DAILY [facility]; Protocol Last Admin: 02/02/19 09:23 Dose: 100 mls/hr Insulin Detemir (Levemir) 50 units SC AC [facility] Last Admin: 02/02/19 08:58 Dose: 50 units Insulin Human Lispro (Humalog) 18 units SC TID [facility] Last Admin: 02/02/19 09:17 Dose: Not Given Insulin Human Regular (Humulin R) 0 units SC ACHS [facility]; Protocol Last Admin: 02/02/19 06:39 Dose: Not Given Losartan Potassium (Cozaar) 100 mg PO DAILY [facility] Last Admin: 02/02/19 09:16 Dose: 100 mg Ondansetron HCl (Zofran Inj) 4 mg IVP Q6 PRN PRN Reason: Nausea/Vomiting Pantoprazole Sodium (Protonix Ec Tab) 40 mg PO DAILY [facility] Last Admin: 02/02/19 09:21 Dose: 40 mg Spironolactone (Aldactone) 25 mg PO DAILY [facility] Last Admin: 02/02/19 09:15 Dose: 25 mg Vitamin B Complex/Vit C/Folic Acid (Nephro-Briseida) 1 tab PO DAILY [facility] Last Admin: 02/02/19 09:20 Dose: 1 tab - Labs Labs: 02/02/19 05:35 02/02/19 05:35 - Constitutional Appears: No Acute Distress - Eye Exam Eye Exam: EOMI - ENT Exam ENT Exam: Mucous Membranes Moist - Respiratory Exam Respiratory Exam: Decreased Breath Sounds. absent: Wheezes - Cardiovascular Exam Cardiovascular Exam: +S1, +S2 - GI/Abdominal Exam GI & Abdominal Exam: Soft. absent: Tenderness - Neurological Exam Neurological Exam: Alert, Awake, CN II-XII Intact - Psychiatric Exam Psychiatric exam: Normal Affect, Normal Mood Assessment and Plan - Assessment and Plan (Free Text) Assessment: 73 year old female with PMHx of HTN, CKD stage 3B, IDDM, renal artery stenosis s/p stent placement in Jul 2017, Peripheral arterial disease brought in by EMS for altered mental status. Patient is admitted for AMS, lethargy, weakness and dehydration. In the ED, Head CT shows suspected small right frontal subarachnoid hemorrhage and tiny posterior frontal hemorrhagic contusion. Plan: Head CT w/o contrast: suspect small right frontal subarachnoid hemorrhage and tiny posterior frontal hemorrhagic contusion. F/U CT scan in 12-24 hour interval is recommended to assess stability. Repeat head CT: Diminishing trace right frontal subarachnoid hemorrhage. This could be related to post trauma given this patient's prior history of syncope. Consider CT angiography of the brain for added evaluation of the right frontal region. CXR: shows no acute infiltrate XR hip/pelvis: pending Altered mental status and drowsiness -Admit to Telemetry -VBG shows pH of 7.04; pCO2 of 82, PO2 OF 42 and HCO3 of 15.3 -Troponin x 2 neg -Neurosurgy: Dr. Damian: cleared; minimal bleed -Neurology: Dr. Fisher -f/u AM labs Weakness and Dehydration -Patient denies any diarrhea -pt had one BM (soft, not lose per nurse) -BUN/Cr/GFR improving -s/p 2 L NS bolus in ED -f/u AM labs Acute kidney injury on Chronic kidney disease, stage III (moderate) -hx of renal artery stenosis, stent placed in Jul 2017 -BUN/Cr 49/2.1, w/ GFR 23 -s/p 2 L NS bolus in ED Gait instability -R hip pain -fall precautions -PT consult: for [facility]A -XR fall: hip and pelvis; pending Insulin dependent diabetes mellitus II -HgA1C 10.0 on 11/14/17 -c/w Lantus 50 units qhs, Humalog 18 units TID. -c/w Accuchecks and sliding scale insulin -Hypoglycemia protocol Anemia of chronic inflammation -Hb 10.4 > 9.0 > 8.2 -continue to monitor closely Hypertension -c/w home meds -monitor DVT prophylaxis -SCDs -Platelets 109 --> 84 > 100 -subarchnoid hemorrhage on CT -Held ASA and plavix; no lovenox PT: -recommends MARIIA Code status -full code Case and plan d/w Dr. Celestine Modi MD PGY2
--- NOTE | 2019-02-02 12:29 | CP.PCM.PN ---
Subjective - Date & Time of Evaluation Date of Evaluation: 02/02/19 Time of Evaluation: 12:27 - Subjective Subjective: Neuro Follow-Up Note: Mrs. Beck was evaluated this afternoon at bedside. Pt states that she feels tired today but otherwise she is "fine." Admits that she didn't sleep well last night. Offers no complaints. We recommended a repeat CT head today, however, she is adamantly refusing. Pt states "2 is enough." Denies h/a, dizziness, visual changes, chest pain, palpitations, cough, sob, abd pain, n/v/d, paresthesiais. Objective - Vital Signs/Intake and Output Vital Signs (last 24 hours): Temp Pulse Resp BP Pulse Ox 98.4 F 68 20 125/63 97 02/02/19 12:03 02/02/19 12:03 02/02/19 12:03 02/02/19 12:03 02/02/19 12:03 - Medications Medications: Current Medications Amlodipine Besylate (Norvasc) 10 mg PO DAILY [facility] Last Admin: 02/02/19 09:20 Dose: 10 mg Atorvastatin Calcium (Lipitor) 80 mg PO DAILY [facility] Last Admin: 02/02/19 09:19 Dose: 80 mg Dextrose (Dextrose 50% Inj) 0 ml IV STAT PRN; Protocol PRN Reason: Hypoglycemia Protocol Dextrose (Glutose 15) 0 gm PO ONCE PRN; Protocol PRN Reason: Hypoglycemia Protocol Fluticasone Propionate (Flonase) 1 spr SONIA BID [facility] Last Admin: 02/02/19 09:16 Dose: 1 spr Furosemide (Lasix) 40 mg PO DAILY [facility] Last Admin: 02/02/19 09:17 Dose: 40 mg Gabapentin (Neurontin) 1,200 mg PO TID [facility] Last Admin: 02/02/19 09:20 Dose: 1,200 mg Glucagon (Glucagen Diagnostic Kit) 0 mg IM STAT PRN; Protocol PRN Reason: Hypoglycemia Protocol Ceftriaxone Sodium 1 gm/ (Sodium Chloride) 100 mls @ 100 mls/hr IVPB DAILY [facility]; Protocol Last Admin: 02/02/19 09:23 Dose: 100 mls/hr Insulin Detemir (Levemir) 50 units SC AC [facility] Last Admin: 02/02/19 08:58 Dose: 50 units Insulin Human Lispro (Humalog) 18 units SC TID [facility] Last Admin: 02/02/19 09:17 Dose: Not Given Insulin Human Regular (Humulin R) 0 units SC ACHS [facility]; Protocol Last Admin: 02/02/19 06:39 Dose: Not Given Losartan Potassium (Cozaar) 100 mg PO DAILY [facility] Last Admin: 02/02/19 09:16 Dose: 100 mg Ondansetron HCl (Zofran Inj) 4 mg IVP Q6 PRN PRN Reason: Nausea/Vomiting Pantoprazole Sodium (Protonix Ec Tab) 40 mg PO DAILY [facility] Last Admin: 02/02/19 09:21 Dose: 40 mg Spironolactone (Aldactone) 25 mg PO DAILY [facility] Last Admin: 02/02/19 09:15 Dose: 25 mg Vitamin B Complex/Vit C/Folic Acid (Nephro-Briseida) 1 tab PO DAILY [facility] Last Admin: 02/02/19 09:20 Dose: 1 tab - Labs Labs: 02/02/19 05:35 02/02/19 05:35 - Constitutional Appears: Well, Non-toxic - Head Exam Head Exam: NORMAL INSPECTION, NORMOCEPHALIC - Eye Exam Eye Exam: EOMI, Normal appearance, PERRL Pupil Exam: NORMAL ACCOMODATION, PERRL - ENT Exam ENT Exam: Mucous Membranes Moist - Neck Exam Neck Exam: Full ROM, Normal Inspection - Respiratory Exam Respiratory Exam: NORMAL BREATHING PATTERN - Extremities Exam Extremities Exam: Full ROM Additional comments: FROM Generalized weakness 2/2 deconditioning noted to BLE - Neurological Exam Neurological Exam: Alert, Awake, CN II-XII Intact, Oriented x3, Reflexes Normal Neuro motor strength exam: Left Upper Extremity: 5, Right Upper Extremity: 5, Left Lower Extremity: 4, Right Lower Extremity: 4 Additional comments: AAOx3 Speech clear, fluid FROM to all extremities noted; generalized weakness to BLE 2/2 deconditioning. No sensory deficits No tremors Toes down going b/l Gait not assessed; PT screen note reviewed. - Psychiatric Exam Psychiatric exam: Normal Mood - Skin Skin Exam: Normal Color Assessment and Plan (1) Subarachnoid hemorrhage Assessment & Plan: Imaging reviewed: -CT Head (02/01/19): Diminishing trace right frontal subarachnoid hemorrhage. This could be related to post trauma given this patient's prior history of syncope. Consider CT angiography of the brain for added evaluation of the right frontal region. -CT Head (01/31/19): 1. Suspect small right frontal subarachnoid hemorrhage and tiny posterior frontal hemorrhagic contusion. Follow-up CT scan in 12-24 hour interval is recommended to assess stability. 2. Mild age-related global parenchymal volume loss. -Repeat non-contrast CT Head ordered for today; pt adamantly refuses to have it done. If there is a change in mental status, we should be notified and she should have a repeat CT head (she agrees with this plan). -Fall precautions. -Continue PT; recommend [facility], TCU or home PT if pt agrees. -Continue to avoid AC--will discuss with Dr. Fisher how long she she avoid AC. -Neurosurgery on the case--no intervention per Dr. Damian's note. -Notify neuro team for any acute changes in pt's condition. No further recommendations at this time. Sonja Yadav DNP, [employer] Discussed with Dr. Fisher Status: Acute
--- NOTE | 2019-02-02 13:27 | RAD ---
PROCEDURE: Radiographs of the pelvis and bilateral hips HISTORY: s/p fall COMPARISON: None. FINDINGS: BONES: Pelvis: Unremarkable. Right hip:Unremarkable. Left hip:Unremarkable. JOINTS: Right hip: Unremarkable. Left hip: Unremarkable. Sacroiliac Joints: Unremarkable. Pubic symphysis: Unremarkable. SOFT TISSUES: Normal. OTHER FINDINGS: None. IMPRESSION: Unremarkable radiographs of the hips and pelvis.
--- NOTE | 2019-02-02 14:05 | CP.PCM.DIS ---
<Dayton Modi - Last Filed: 02/02/19 13:55> Provider - Provider Date of Admission: 02/01/19 16:11 Attending physician: Hailey Salazar DO Consults: 02/01/19 08:31 Neuro Surgery Consult Routine Comment: Consulting Provider: Richard Damian Consulting Physician: Richard Damian Reason for Consult: R frontal subarachnoid hemorrhage tiny posterior frontal hem contusi Neurology Consult Routine Comment: Consulting Provider: Antoinette Fisher Consulting Physician: Antoinette Fisher Reason for Consult: R frontal subarachnoid hemorrhage tiny posterior frontal hem contusi Time Spent in preparation of Discharge (in minutes): 30 Hospital Course - Lab Results Lab Results: Micro Results 01/31/19 19:35 Blood-Venous Blood Culture - Preliminary NO GROWTH AFTER 24 HOURS 01/31/19 19:20 Blood-Venous Blood Culture - Preliminary NO GROWTH AFTER 24 HOURS Most Recent Lab Values WBC 7.7 K/uL (4.8-10.8) 02/02/19 05:35 RBC 2.80 Mil/uL (3.80-5.20) L 02/02/19 05:35 Hgb 8.2 g/dL (12.0-16.0) L 02/02/19 05:35 Hct 24.1 % (34.0-47.0) L 02/02/19 05:35 MCV 86.0 fl (81.0-99.0) 02/02/19 05:35 MCH 29.3 pg (27.0-31.0) 02/02/19 05:35 MCHC 34.0 g/dL (33.0-37.0) 02/02/19 05:35 RDW 14.5 % (11.5-14.5) 02/02/19 05:35 Plt Count 100 K/uL (130-400) L 02/02/19 05:35 MPV 9.6 fl (7.2-11.7) 02/01/19 05:40 Neut % (Auto) 67.2 % (50.0-75.0) 02/01/19 05:40 Lymph % (Auto) 19.8 % (20.0-40.0) L 02/01/19 05:40 [place] % (Auto) 11.2 % (0.0-10.0) H 02/01/19 05:40 Eos % (Auto) 1.4 % (0.0-4.0) 02/01/19 05:40 Baso % (Auto) 0.4 % (0.0-2.0) 02/01/19 05:40 Neut # (Auto) 5.0 K/uL (1.8-7.0) 02/01/19 05:40 Lymph # (Auto) 1.5 K/uL (1.0-4.3) 02/01/19 05:40 [place] # (Auto) 0.8 K/uL (0.0-0.8) 02/01/19 05:40 Eos # (Auto) 0.1 K/uL (0.0-0.7) 02/01/19 05:40 Baso # (Auto) 0.0 K/uL (0.0-0.2) 02/01/19 05:40 pO2 42 mm/Hg (30-55) 01/31/19 16:22 VBG pH 7.04 (7.32-7.43) L* 01/31/19 16:22 VBG pCO2 82 mmHg (40-60) H* 01/31/19 16:22 VBG HCO3 15.9 mmol/L 01/31/19 16:22 VBG Total CO2 24.7 mmol/L (22-28) 01/31/19 16:22 VBG O2 Sat (Calc) 67.2 % (40-65) H 01/31/19 16:22 VBG Base Excess -10.0 mmol/L (0.0-2.0) L 01/31/19 16:22 Sodium 122.0 mmol/L (132-148) L 01/31/19 16:22 Chloride 98.0 mmol/L (98-107) 01/31/19 16:22 Glucose 235 mg/dL (65-105) H 01/31/19 16:22 Lactate 2.7 mmol/L (0.7-2.1) H 01/31/19 16:22 FiO2 21.0 % 01/31/19 16:22 Crit Value Called To Dr abhishek tom 01/31/19 16:22 Crit Value Called By [id number] 01/31/19 16:22 Crit Value Read Back Y 01/31/19 16:22 Blood Gas Notified Time 1626 01/31/19 16:22 Sodium 140 mmol/l (132-148) 02/02/19 05:35 Potassium 3.6 MMOL/L (3.6-5.0) 02/02/19 05:35 Chloride 103 mmol/L (98-107) 02/02/19 05:35 Carbon Dioxide 24 mmol/L (22-30) 02/02/19 05:35 Anion Gap 17 (10-20) 02/02/19 05:35 BUN 39 mg/dl (7-17) H 02/02/19 05:35 Creatinine 1.7 mg/dl (0.7-1.2) H 02/02/19 05:35 Est GFR ( Amer) 36 02/02/19 05:35 Est GFR (Non-Af Amer) 30 02/02/19 05:35 POC Glucose (mg/dL) 172 mg/dL (65-110) H 02/02/19 10:34 Random Glucose 99 mg/dL (65-105) 02/02/19 05:35 Hemoglobin A1c 10.1 % (4.2-6.5) H 02/01/19 05:40 Calcium 7.7 mg/dL (8.4-10.2) L 02/02/19 05:35 Phosphorus 3.3 mg/dl (2.5-4.5) 02/01/19 05:40 Magnesium 2.2 MG/DL (1.6-2.3) 02/01/19 05:40 Total Bilirubin 0.5 mg/dl (0.2-1.3) 02/01/19 05:40 AST 24 U/L (14-36) 02/01/19 05:40 ALT 31 U/L (9-52) 02/01/19 05:40 Alkaline Phosphatase 78 U/L (38-126) 02/01/19 05:40 Total Creatine Kinase 387 U/L (30-135) H 02/01/19 05:40 Troponin I 0.0320 ng/mL (0.00-0.120) 01/31/19 22:45 NT-Pro-B Natriuret Pep 2650 pg/ml (0-900) H 02/01/19 05:40 Total Protein 6.4 G/DL (6.3-8.2) 02/01/19 05:40 Albumin 3.3 g/dL (3.5-5.0) L 02/01/19 05:40 Globulin 3.2 gm/dL (2.2-3.9) 02/01/19 05:40 Albumin/Globulin Ratio 1.0 (1.0-2.1) 02/01/19 05:40 Lipase 24 U/L (23-300) 01/31/19 16:15 Urine Color Yellow (YELLOW) 02/02/19 06:54 Urine Clarity Cloudy (Clear) 02/02/19 06:54 Urine pH 5.0 (5.0-8.0) 02/02/19 06:54 Ur Specific [place] 1.013 (1.003-1.030) 02/02/19 06:54 Urine Protein 100 mg/dL (NEGATIVE) 02/02/19 06:54 Urine Glucose (UA) Neg mg/dL (NEGATIVE) 02/02/19 06:54 Urine Ketones Negative mg/dL (NEGATIVE) 02/02/19 06:54 Urine Blood Small (NEGATIVE) 02/02/19 06:54 Urine Nitrate Negative (NEGATIVE) 02/02/19 06:54 Urine Bilirubin Negative (NEGATIVE) 02/02/19 06:54 Urine Urobilinogen 0.2-1.0 mg/dL (0.2-1.0) 02/02/19 06:54 Ur Leukocyte Esterase Large [place]/uL (Negative) 02/02/19 06:54 Urine RBC (Auto) 19 /hpf (0-3) H 02/02/19 06:54 Urine Microscopic WBC 597 /hpf (0-5) H 02/02/19 06:54 Ur Squamous Epith Cells 3 /hpf (0-5) 02/02/19 06:54 Urine Bacteria Many (<OCC) H 02/02/19 06:54 - Hospital Course Hospital Course: 73 year old female with PMHx of HTN, CKD stage 3B, IDDM, renal artery stenosis s/p stent placement in Jul 2017, Peripheral arterial disease brought in by EMS for altered mental status. Patient is admitted for AMS, lethargy, weakness and dehydration. In the ED, Head CT shows suspected small right frontal subarachnoid hemorrhage and tiny posterior frontal hemorrhagic contusion. Head CT w/o contrast: suspect small right frontal subarachnoid hemorrhage and tiny posterior frontal hemorrhagic contusion. F/U CT scan in 12-24 hour interval is recommended to assess stability. Repeat head CT: Diminishing trace right frontal subarachnoid hemorrhage. This could be related to post trauma given this patient's prior history of syncope. Consider CT angiography of the brain for added evaluation of the right frontal region. CXR: shows no acute infiltrate XR hip/pelvis: no fx Altered mental status and drowsiness -Admitted to Telemetry -VBG shows pH of 7.04; pCO2 of 82, PO2 OF 42 and HCO3 of 15.3 -Troponin x 2 neg -Neurosurgy: Dr. Damian: cleared; minimal bleed -Neurology: Dr. Fisher: recommended repeat ct head; pt declince Weakness and Dehydration -Patient denies any diarrhea -pt had one BM (soft, not lose per nurse) -BUN/Cr/GFR improved -s/p 2 L NS bolus in ED -PT: recommends home PT Acute kidney injury on Chronic kidney disease, stage III (moderate) -hx of renal artery stenosis, stent placed in Jul 2017 -BUN/Cr 49/2.1, w/ GFR 23 -s/p 2 L NS bolus in ED UTI: -UA: 02/02/19 LEUK Esterase -Started ceftriaxone -d/c home with cefdinir Gait instability -R hip pain -fall precautions -PT consult: for MARIIA pt declined; for home PT -XR fall: hip and pelvis: no fx Insulin dependent diabetes mellitus II -HgA1C 10.0 on 11/14/17 -Lantus 50 units qhs, Humalog 18 units TID. Anemia of chronic inflammation -Hb 10.4 > 9.0 > 8.2 Hypertension -home meds PT: -recommends MARIIA; declined; for home PT Pt d/c home with ER precautions Cefdinir 300 mg cap BID #14 sent to pharmacy Pt declined repeat CT head Home Pt Case and plan d/w Dr. Celestine Modi MD PGY2 Discharge Exam - Head Exam Head Exam: NORMAL INSPECTION, NORMOCEPHALIC - Eye Exam Eye Exam: EOMI - ENT Exam ENT Exam: Mucous Membranes Moist - Respiratory Exam Respiratory Exam: absent: Wheezes - Cardiovascular Exam Cardiovascular Exam: +S1, +S2 - GI/Abdominal Exam GI & Abdominal Exam: Normal Bowel Sounds, Soft. absent: Tenderness - Neurological Exam Neurological exam: Alert, CN II-XII Intact, Oriented x3 - Psychiatric Exam Psychiatric exam: Normal Affect, Normal Mood Discharge Plan - Discharge Medications Prescriptions: Cefdinir [Omnicef] 300 mg PO BID 7 Days #14 cap - Follow Up Plan Condition: GOOD Disposition: HOME/ ROUTINE Instructions: Subarachnoid Hemorrhage (DC), Preventing Falls, Standing Exercises, Weakness (GEN) Additional Instructions: Please follow up with Dr. Gonzalez in 3-5 days. If you notice acute changes in mentation or neurological deficits, please return to the ER ER precautions reviewed with patient Home PT Dc anticoagulation for now per Neurology. Started Cefdinir for UTI. 1 week course; rx sent to [facility] visiting nurse;[phone] Dayton Modi MD PGY2 Referrals: [facility] [Outside] <Dottie Sprague - Last Filed: 02/02/19 14:59> Provider - Provider Date of Admission: 02/01/19 16:11 Attending physician: Hailey Salazar DO Consults: 02/01/19 08:31 Neuro Surgery Consult Routine Comment: Consulting Provider: Richard Damian Consulting Physician: Richard Damian Reason for Consult: R frontal subarachnoid hemorrhage tiny posterior frontal hem contusi Neurology Consult Routine Comment: Consulting Provider: Antoinette Fisher Consulting Physician: Antoinette Fisher Reason for Consult: R frontal subarachnoid hemorrhage tiny posterior frontal hem contusi Hospital Course - Lab Results Lab Results: Micro Results 01/31/19 19:35 Blood-Venous Blood Culture - Preliminary NO GROWTH AFTER 24 HOURS 01/31/19 19:20 Blood-Venous Blood Culture - Preliminary NO GROWTH AFTER 24 HOURS Most Recent Lab Values WBC 7.7 K/uL (4.8-10.8) 02/02/19 05:35 RBC 2.80 Mil/uL (3.80-5.20) L 02/02/19 05:35 Hgb 8.2 g/dL (12.0-16.0) L 02/02/19 05:35 Hct 24.1 % (34.0-47.0) L 02/02/19 05:35 MCV 86.0 fl (81.0-99.0) 02/02/19 05:35 MCH 29.3 pg (27.0-31.0) 02/02/19 05:35 MCHC 34.0 g/dL (33.0-37.0) 02/02/19 05:35 RDW 14.5 % (11.5-14.5) 02/02/19 05:35 Plt Count 100 K/uL (130-400) L 02/02/19 05:35 MPV 9.6 fl (7.2-11.7) 02/01/19 05:40 Neut % (Auto) 67.2 % (50.0-75.0) 02/01/19 05:40 Lymph % (Auto) 19.8 % (20.0-40.0) L 02/01/19 05:40 [place] % (Auto) 11.2 % (0.0-10.0) H 02/01/19 05:40 Eos % (Auto) 1.4 % (0.0-4.0) 02/01/19 05:40 Baso % (Auto) 0.4 % (0.0-2.0) 02/01/19 05:40 Neut # (Auto) 5.0 K/uL (1.8-7.0) 02/01/19 05:40 Lymph # (Auto) 1.5 K/uL (1.0-4.3) 02/01/19 05:40 [place] # (Auto) 0.8 K/uL (0.0-0.8) 02/01/19 05:40 Eos # (Auto) 0.1 K/uL (0.0-0.7) 02/01/19 05:40 Baso # (Auto) 0.0 K/uL (0.0-0.2) 02/01/19 05:40 pO2 42 mm/Hg (30-55) 01/31/19 16:22 VBG pH 7.04 (7.32-7.43) L* 01/31/19 16:22 VBG pCO2 82 mmHg (40-60) H* 01/31/19 16:22 VBG HCO3 15.9 mmol/L 01/31/19 16:22 VBG Total CO2 24.7 mmol/L (22-28) 01/31/19 16:22 VBG O2 Sat (Calc) 67.2 % (40-65) H 01/31/19 16:22 VBG Base Excess -10.0 mmol/L (0.0-2.0) L 01/31/19 16:22 Sodium 122.0 mmol/L (132-148) L 01/31/19 16:22 Chloride 98.0 mmol/L (98-107) 01/31/19 16:22 Glucose 235 mg/dL (65-105) H 01/31/19 16:22 Lactate 2.7 mmol/L (0.7-2.1) H 01/31/19 16:22 FiO2 21.0 % 01/31/19 16:22 Crit Value Called To Dr abhishek tom 01/31/19 16:22 Crit Value Called By [id number] 01/31/19 16:22 Crit Value Read Back Y 01/31/19 16:22 Blood Gas Notified Time 1626 01/31/19 16:22 Sodium 140 mmol/l (132-148) 02/02/19 05:35 Potassium 3.6 MMOL/L (3.6-5.0) 02/02/19 05:35 Chloride 103 mmol/L (98-107) 02/02/19 05:35 Carbon Dioxide 24 mmol/L (22-30) 02/02/19 05:35 Anion Gap 17 (10-20) 02/02/19 05:35 BUN 39 mg/dl (7-17) H 02/02/19 05:35 Creatinine 1.7 mg/dl (0.7-1.2) H 02/02/19 05:35 Est GFR ( Amer) 36 02/02/19 05:35 Est GFR (Non-Af Amer) 30 02/02/19 05:35 POC Glucose (mg/dL) 172 mg/dL (65-110) H 02/02/19 10:34 Random Glucose 99 mg/dL (65-105) 02/02/19 05:35 Hemoglobin A1c 10.1 % (4.2-6.5) H 02/01/19 05:40 Calcium 7.7 mg/dL (8.4-10.2) L 02/02/19 05:35 Phosphorus 3.3 mg/dl (2.5-4.5) 02/01/19 05:40 Magnesium 2.2 MG/DL (1.6-2.3) 02/01/19 05:40 Total Bilirubin 0.5 mg/dl (0.2-1.3) 02/01/19 05:40 AST 24 U/L (14-36) 02/01/19 05:40 ALT 31 U/L (9-52) 02/01/19 05:40 Alkaline Phosphatase 78 U/L (38-126) 02/01/19 05:40 Total Creatine Kinase 387 U/L (30-135) H 02/01/19 05:40 Troponin I 0.0320 ng/mL (0.00-0.120) 01/31/19 22:45 NT-Pro-B Natriuret Pep 2650 pg/ml (0-900) H 02/01/19 05:40 Total Protein 6.4 G/DL (6.3-8.2) 02/01/19 05:40 Albumin 3.3 g/dL (3.5-5.0) L 02/01/19 05:40 Globulin 3.2 gm/dL (2.2-3.9) 02/01/19 05:40 Albumin/Globulin Ratio 1.0 (1.0-2.1) 02/01/19 05:40 Lipase 24 U/L (23-300) 01/31/19 16:15 Urine Color Yellow (YELLOW) 02/02/19 06:54 Urine Clarity Cloudy (Clear) 02/02/19 06:54 Urine pH 5.0 (5.0-8.0) 02/02/19 06:54 Ur Specific [place] 1.013 (1.003-1.030) 02/02/19 06:54 Urine Protein 100 mg/dL (NEGATIVE) 02/02/19 06:54 Urine Glucose (UA) Neg mg/dL (NEGATIVE) 02/02/19 06:54 Urine Ketones Negative mg/dL (NEGATIVE) 02/02/19 06:54 Urine Blood Small (NEGATIVE) 02/02/19 06:54 Urine Nitrate Negative (NEGATIVE) 02/02/19 06:54 Urine Bilirubin Negative (NEGATIVE) 02/02/19 06:54 Urine Urobilinogen 0.2-1.0 mg/dL (0.2-1.0) 02/02/19 06:54 Ur Leukocyte Esterase Large [place]/uL (Negative) 02/02/19 06:54 Urine RBC (Auto) 19 /hpf (0-3) H 02/02/19 06:54 Urine Microscopic WBC 597 /hpf (0-5) H 02/02/19 06:54 Ur Squamous Epith Cells 3 /hpf (0-5) 02/02/19 06:54 Urine Bacteria Many (<OCC) H 02/02/19 06:54 Attending/Attestation - Attestation I have personally seen and examined this patient.: Yes I have fully participated in the care of the patient.: Yes I have reviewed all pertinent clinical information, including history, physical exam and plan: Yes Notes (Text): 1. Small Frontal SAH/Contusion 2. Fall at Home, Gait Instability 3. Hip Pain 4. Thrombocytopenia 5. MELE on CKD Stage III 5. HTN 6. DM Type II, Insulin requiring 7. PVD 8. UTI - CT of head showed small SAH, rpt CT showed diminishing bleed, refused another rpt CT prior to discharge -PT consulted - rec MARIIA , pt refused , prefers to do Home PT - Pt referred to Home Care - Hold ASA and Plavix x 1 wk -received Ceftriaxone for Leuko/WBC in urine, will d/c home on PO Cefdinir - resume DM meds
[2019-02-02 15:57] VITALS: BP 120/62; PULSE 69; RESP 19; TEMP 99.3; O2SAT 96
== END 2019-02-02 18:20 | disposition home health service (06) | DRG 83 ==
LOC: H.ER 15:08 → H.ERHOLD 17:37 → MERGE 17:37 → H.TEL 21:51 → OBSVTOIN 02-01 16:11
PROVIDERS: ADMIT Student in an Organized Health Care Education/Training Program; ATTEND Student in an Organized Health Care Education/Training Program
DX: S06.6X9A Traumatic subarachnoid hemorrhage with loss of consciousness of unspecified duration, initial encounter (principal); N17.9 Acute kidney failure, unspecified; N39.0 Urinary tract infection, site not specified; N18.3 Chronic kidney disease, stage 3 (moderate); I12.9 Hypertensive chronic kidney disease with stage 1 through stage 4 chronic kidney disease, or unspecified chronic kidney disease; E11.22 Type 2 diabetes mellitus with diabetic chronic kidney disease; E86.0 Dehydration; W19.XXXA Unspecified fall, initial encounter; I35.0 Nonrheumatic aortic (valve) stenosis; E11.51 Type 2 diabetes mellitus with diabetic peripheral angiopathy without gangrene; D63.8 Anemia in other chronic diseases classified elsewhere; D69.6 Thrombocytopenia, unspecified; M17.11 Unilateral primary osteoarthritis, right knee; R26.89 Other abnormalities of gait and mobility; I70.1 Atherosclerosis of renal artery; E78.00 Pure hypercholesterolemia, unspecified; Z79.02 Long term (current) use of antithrombotics/antiplatelets; Z79.4 Long term (current) use of insulin; Z79.82 Long term (current) use of aspirin; Z87.891 Personal history of nicotine dependence; Y92.009 Unspecified place in unspecified non-institutional (private) residence as the place of occurrence of the external cause; Y93.9 Activity, unspecified

== ENCOUNTER 2019-02-12 18:04 | Inpatient (IN) | payer MEDICARE, OTHER ==
[2019-02-12 18:04] VITALS: BMI 32.9
--- NOTE | 2019-02-12 19:09 | ED PDOC ---
HPI: SOB/CHF/COPD Time Seen by Provider: 02/12/19 18:45 Chief Complaint (Nursing): Shortness Of Breath Chief Complaint (Provider): Shortness Of Breath History Per: Patient History/Exam Limitations: no limitations Onset/Duration Of Symptoms: Days Current Symptoms Are (Timing): Still Present Additional Complaint(s): 73 y/o female with a PMHx of Peripheral Vascular Disease, HTN, DM, CHF and COPD presents to the ED for evaluation of shortness of breath. Patient reports s hortness of breath is associated with chest tightness, cough and nasal congestion. Patient reports of using her nebulizer once a day with no improvement of symptoms. Patient notes of having used Oxygen while at home at 3 but raised it to 5 due to no improvement of symptoms. Patient reports of being admitted to this facility about one week ago for syncope, a head injury and intracranial bleeding. Patient states she was discharged one 02/01/2019. Patient notes symptoms have been present since discharge from this facility. Of note, patient reports of having chronic leg swelling. Patient states she is unable to walk without being short of breath and without being in pain. Patient is taking 40 mg of Lasix, her nebulizer treatment and water pills at home. 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: Jermain Romano Past Medical History Reviewed: Historical Data, Nursing Documentation, Vital Signs Vital Signs: Last Vital Signs Temp 98.2 F 02/12/19 18:15 Pulse 73 02/12/19 18:15 Resp 18 02/12/19 18:15 BP 139/55 L 02/12/19 18:15 Pulse Ox 96 02/12/19 18:24 - Medical History PMH: Arthritis (RIGHT KNEE), CHF, COPD, Diabetes, HTN, Hypercholesterolemia, Peripheral Edema (PRESENTLY), Chronic Kidney Disease (CKD STATES KIDNEYS 38PERCENT PER PT) - Surgical History Surgical History: Tonsillectomy - Family History Family History: States: Unknown Family Hx, Diabetes, Hypertension - Immunization History Hx Tetanus Toxoid Vaccination: Yes Hx Influenza Vaccination: No Hx Pneumococcal Vaccination: Yes - Home Medications Home Medications: Ambulatory Orders Medication Instructions Recorded Atorvastatin [Lipitor] 80 mg PO DAILY #30 tab 08/21/17 Losartan [Cozaar] 100 mg PO DAILY #30 tab 08/21/17 amLODIPine [Norvasc] 10 mg PO DAILY #30 tab 08/21/17 Ezetimibe [Zetia] 10 mg PO BID 11/14/17 Furosemide [Lasix] 40 mg PO DAILY 11/14/17 Vit B Comp No.3/Folic/C/Biotin 1 tab PO DAILY 11/14/17 [Water Quality Technician-Briseida Rx Tablet] Vit D2 125 mg PO DAILY 11/14/17 Amitriptyline [Elavil] 25 mg PO HS tab 11/30/17 Fluticasone Propionate [Flonase] 1 spr SONIA BID bottle 11/30/17 Gabapentin [Neurontin] 1,200 cap PO TID 05/19/18 GlipiZIDE [Glucotrol] 5 tab PO DAILY 05/19/18 Insulin Glargine,Hum.rec.anlog 50 unit SC ACS 05/19/18 [Lantus] Spironolactone [Aldactone] 25 cap PO DAILY 05/19/18 Insulin Lispro [Humalog (Insulin 18 unit SQ TID 09/06/18 Lispro)] Acetaminophen [Tylenol Extra 1,000 mg PO Q6 PRN #100 tablet 09/28/18 Strength] traMADol [Ultram] 50 mg PO TID #15 tab 09/28/18 [place]ren [Tekturna] 300 mg PO DAILY #30 tab 12/26/18 Cefdinir [Omnicef] 300 mg PO BID 7 Days #14 cap 02/02/19 - Allergies Allergies/Adverse Reactions: Allergies Allergy/AdvReac Type Severity Reaction Status Date / Time No Known Allergies Allergy Verified 02/01/19 08:03 Curb-65 Severity Score - CURB-65 Severity Score Confusion: No Bun >19mg/dl (>7mmol/L): No Respiratory Rate greater than/equal to 30: No Systolic BP <90 or Diastolic BP less than/equal 60mmHg: No Age >64: Yes Curb-65 Score: 1 Percentage 30-day mortality: 2.7% Review of Systems ROS Statement: Except As Marked, All Systems Reviewed And Found Negative Cardiovascular: Positive for: Chest Pain (tightness) Respiratory: Positive for: Cough, Shortness of Breath Physical Exam - Reviewed Nursing Documentation Reviewed: Yes Vital Signs Reviewed: Yes - Physical Exam Appears: Positive for: Uncomfortable Head Exam: Positive for: ATRAUMATIC, NORMOCEPHALIC Skin: Positive for: Normal Color, Warm, Dry Eye Exam: Positive for: Normal appearance, EOMI, PERRL Neck: Positive for: Normal, Painless ROM Respiratory: Positive for: Decreased Breath Sounds Gastrointestinal/Abdominal: Positive for: Soft. Negative for: Tenderness Extremity: Positive for: Normal ROM, Pedal Edema, Swelling. Negative for: Deformity Neurological/Psych: Positive for: Awake, Alert, Oriented, benefit director II-XII (intact). Negative for: Motor/Sensory Deficits - Laboratory Results Result Diagrams: 02/13/19 04:25 02/13/19 04:25 - ECG O2 Sat by Pulse Oximetry: 96 (RA) Pulse Ox Interpretation: Normal - Radiology X-Ray: Interpreted by Me, Viewed By Me X-Ray Interpretation: Infiltrates (RLL ), COPD Medical Decision Making Medical Decision Making: Time: 1910 Impression: Shortness of breath, leg swelling and cough Differentials include but not limited to COPD, CHF Rule out Pneumonia Plan: -- ABG -- EKG -- B-Type Natriuretic -- BMP -- Troponin I -- CBC with Differentials -- CXR One View -- Duoneb 3mg/0.5mg 3 ml (UD) 3 ml INH -- SOLU-Medrol 125 mg IVP -- Blood Culture -- Peak Flow Pre/Post Tx -- Influenza A B -- US Duplex Lower Extremity Vein Bilaterally Time: 2219 US RESULTS FINDINGS: DEEP VEINS: The common femoral, superficial femoral, and popliteal veins are echolucent and compressible. There is normal color Doppler flow throughout. The visualized calf veins appear patent. SUPERFICIAL VEINS: The visualized greater saphenous vein is patent. SOFT TISSUES: No popliteal fossa cyst or other abnormalities. IMPRESSION: No deep venous thrombosis evident on bilateral lower extremity examination. Electronically signed on Feb 12, 2019 10:20:29 PM EDT by: Cole Nguyen M.D., TRUNG Certified By [employer] & [facility] Fellowship Trained MRI and CT Specialist Scribe Attestation: Documented by Terry Carmona, acting as a scribe Adriana Hanley MD. Provider Scribe Attestation: All medical record entries made by the Scribe were at my direction and personally dictated by me. I have reviewed the chart and agree that the record accurately reflects my personal performance of the history, physical exam, medical decision making, and the department course for this patient. I have also personally directed, reviewed, and agree with the discharge instructions and disposition. Disposition - Clinical Impression Clinical Impression: Chronic congestive heart failure, Leg edema, Pneumonia - Patient ED Disposition Is Patient to be Admitted: Yes Discussed With : Abner Mcdaniels Doctor Will See Patient In The: Hospital Counseled Patient/Family Regarding: Studies Performed, Diagnosis, Need For Followup - Disposition Disposition Time: 21:22 Condition: FAIR - Pt Status Changed To: Hospital Disposition Of: Inpatient - Admit Certification Admit to Inpatient:: After my assessment, the patient will require hospitalization for at least two midnights. This is because of the severity of symptoms shown, intensity of services needed, and/or the medical risk in this patient being treated as an outpatient. - POA Present On Arrival: Poor Glycemic Control
[2019-02-12] MEDS ORDERED: Albuterol-Ipratrop 3 mg / 0.5 (3 ml) UD INH STA (19:10)
[2019-02-12] MEDS ORDERED: Albuterol-Ipratrop 3 mg / 0.5 (3 ml) UD ONE (20:19)
[2019-02-12 20:42] LABS: BASO # 0.1 K/uL (0.0-0.2); BASO % 0.9 % (0.0-2.0); EOS # 0.3 K/uL (0.0-0.7); EOS % 4.7 % (0.0-4.0); HEMOGLOBIN 8.7 g/dL (12.0-16.0); LYMPH # 1.1 K/uL (1.0-4.3); LYMPH % 14.4 % (20.0-40.0); MEAN CELL VOLUME 85.2 fl (81.0-99.0); MEAN CORPUSCULAR HEMOGLOBIN 27.9 pg (27.0-31.0); MEAN CORPUSCULAR HGB CONC 32.7 g/dL (33.0-37.0); MEAN PLATELET VOLUME 8.7 fl (7.2-11.7); MONO # 0.6 K/uL (0.0-0.8); NEUT # 5.3 K/uL (1.8-7.0); RBC 3.13 Mil/uL (3.80-5.20); RED CELL DISTRIBUTION WIDTH 15.3 % (11.5-14.5); WHITE BLOOD COUNT 7.4 K/uL (4.8-10.8)
[2019-02-12 20:44] LABS: ABG ALLEN TEST YES; ARTERIAL BLOOD GAS O2 CONTENT 11.8 ML/dL (15-23); ARTERIAL BLOOD GAS PCO2 47 mm/Hg (35-45); ARTERIAL BLOOD GAS PH 7.48 (7.35-7.45); ARTERIAL BLOOD GAS PO2 54 mm/Hg (80-100); ARTERIAL BLOOD GAS TCO2 36.4 mmol/L (22-28)
[2019-02-12 20:57] LABS: BLOOD UREA NITROGEN 22 mg/dl (7-17); CALCIUM 8.9 mg/dL (8.4-10.2); GFR NON-AFRICAN AMERICAN 34
[2019-02-12 21:04] LABS: B-TYPE NATRIURETIC PEPTIDE 740 pg/ml (0-900)
[2019-02-12] MEDS ORDERED: levoFLOXacin 500 mg in D5W 500 MG/100 ML BAG IVPB STA (21:15)
[2019-02-12] MEDS ORDERED: Piperacillin/Tazobact 3.375 GM in Sodium Chloride 0.9% 100 ML IVPB STA (21:15)
[2019-02-12] MEDS ORDERED: Piperacillin/Tazobact 3.375 gm Inj IVPB ONE (21:33)
[2019-02-12] MEDS ORDERED: levoFLOXacin 500 mg in D5W 500 MG/100 ML BAG IVPB ONE (21:33)
--- NOTE | 2019-02-12 21:47 | CP.PCM.HP ---
<Cecelia Green - Last Filed: 02/13/19 01:02> History of Present Illness - History of Present Illness History of Present Illness: This is 73 y/o F with PMH of HTN, CKD stage 3B, IDDM, renal artery stenosis, s/p stent in Jul, peripheral arterial disease, and recent SAH 01/31 admitted to [facility] for evaluation and treatment of COPD exacerbation/CHF exacerbation and Pneumonia. Patient was recently discharged from the hospital 10 days ago after evaluation and treatment of SAH. Patient comes to the ED c/o one week history of progressively worsening dyspnea, and Cough. Patient reports, she has been using her home oxygen, Albuterol and Lasix w/o any relief. + white phlegm with cough, + limited activies due to dyspnea and LE pain. denies any fever, chest pain, Dizziness, palpitations, blurred vision, headache, abdominal pain or dysuria. Patient reports on and off chronic pain plus edema of her b/l LEs which makes difficult to walk at home. Patient lives with family. PMD: [facility] () Cardio: Dr. Romano PMHx: HTN, CKD stage 3B, IDDM, renal artery stenosis, s/p stent in Jul, peripheral arterial disease, SAH 01/31 Medications: reviewed, see EMR Allergies: NKDA PSHx: former smoker, quit 5 years ago. 2 PPD smoker -11 pack years, denies EtOH and illicit drug use Surgical Hx: renal artery stent placement Jul 2017, angioplasty of right femoral artery. Family Hx: unknown Next of Kin: [facility] Multiple calls were made to reach out to patient's daughter but was unsuccessful. ED Course: VS: Stable, afebrile, no tachycardia CBC: no WBC, Chronic anemia CMP: BUN/CR: 22/1.5, glucose 199 ABG: PH 7.48, pco2 47, po2 54, hco3 33 EKG: NSR, LVH (read by me) CXR: F/u official read U/S b/l LEs: No DVT S/p Levofloxacin x1 and Zosyn x1 S/p Duoneb and 125mg IV Solumedrol Present on Admission - Present on Admission Any Indicators Present on Admission: No Past Patient History - Past Medical History & Family History Past Medical History?: Yes - Past Social History Smoking Status: Former Smoker - CARDIAC Hx Congestive Heart Failure: Yes Hx Hypercholesterolemia: Yes Hx Hypertension: Yes Hx Peripheral Edema: Yes (PRESENTLY) - PULMONARY Hx Chronic Obstructive Pulmonary Disease (COPD): Yes - NEUROLOGICAL Hx Neurological Disorder: No - HEENT Hx HEENT Problems: Yes (SEASONAL ALLERGIES) - RENAL Hx Chronic Kidney Disease: Yes (CKD STATES KIDNEYS 38PERCENT PER PT) - ENDOCRINE/METABOLIC Hx Endocrine Disorders: Yes Hx Diabetes Mellitus Type 2: Yes - INTEGUMENTARY Hx Dermatological Problems: No - MUSCULOSKELETAL/RHEUMATOLOGICAL Hx Arthritis: Yes (RIGHT KNEE) - GASTROINTESTINAL Hx Gastrointestinal Disorders: No - GENITOURINARY/GYNECOLOGICAL Hx Genitourinary Disorders: No - PSYCHIATRIC Hx Psychophysiologic Disorder: No Hx Substance Use: No - SURGICAL HISTORY Hx Tonsillectomy: Yes - ANESTHESIA Hx Anesthesia: Yes Hx Anesthesia Reactions: No Hx Malignant Hyperthermia: No Meds Allergies/Adverse Reactions: Allergies Allergy/AdvReac Type Severity Reaction Status Date / Time No Known Allergies Allergy Verified 02/01/19 08:03 Physical Exam - Constitutional Appears: No Acute Distress - Head Exam Head Exam: NORMAL INSPECTION - Eye Exam Eye Exam: Normal appearance, PERRL Pupil Exam: NORMAL ACCOMODATION - ENT Exam ENT Exam: Mucous Membranes Moist - Neck Exam Neck exam: Positive for: Normal Inspection - Respiratory Exam Respiratory Exam: Prolonged Expiratory Phase, Wheezes. absent: Respiratory Distress Additional comments: Course BS b/l crackles on B/L lower lung field - Cardiovascular Exam Cardiovascular Exam: REGULAR RHYTHM, +S1, +S2 - GI/Abdominal Exam GI & Abdominal Exam: Distended, Normal Bowel Sounds, Soft. absent: Guarding, Rebound, Rigid, Tenderness - Extremities Exam Additional comments: B/l LEs Edema, + venous stasis skin changes b/l, no open ulcer or sign of infections. + tenderness b/l LEs (Chronic) - Back Exam Back exam: NORMAL INSPECTION - Neurological Exam Neurological exam: Alert, CN II-XII Intact, Oriented x3 - Psychiatric Exam Psychiatric exam: Anxious - Skin Skin Exam: Dry, Intact, Normal Color Results - Vital Signs Recent Vital Signs: Last Vital Signs Temp 98.2 F 02/12/19 18:15 Pulse 73 02/12/19 18:15 Resp 18 02/12/19 18:15 BP 147/86 02/12/19 21:20 Pulse Ox 96 02/12/19 21:04 - Labs Result Diagrams: 02/12/19 20:15 02/12/19 20:15 Labs: Laboratory Results - last 24 hr 02/12/19 02/12/19 02/12/19 20:15 20:15 20:15 WBC 7.4 RBC 3.13 L Hgb 8.7 L Hct 26.7 L MCV 85.2 MCH 27.9 MCHC 32.7 L RDW 15.3 H Plt Count 179 MPV 8.7 Neut % (Auto) 72.0 Lymph % (Auto) 14.4 L Carbon % (Auto) 8.0 Eos % (Auto) 4.7 H Baso % (Auto) 0.9 Neut # (Auto) 5.3 Lymph # (Auto) 1.1 Carbon # (Auto) 0.6 Eos # (Auto) 0.3 Baso # (Auto) 0.1 pCO2 pO2 HCO3 ABG pH ABG Total CO2 ABG O2 Saturation ABG O2 Content ABG Base Excess ABG Hemoglobin ABG Carboxyhemoglobin POC ABG HHb (Measured) ABG Methemoglobin ABG O2 Capacity Conor Test A-a O2 Difference Hgb O2 Saturation FiO2 Sodium 137 Potassium 4.6 Chloride 94 L Carbon Dioxide 29 Anion Gap 19 BUN 22 H Creatinine 1.5 H Est GFR ( Amer) 41 Est GFR (Non-Af Amer) 34 Random Glucose 265 H Calcium 8.9 Troponin I < 0.0120 NT-Pro-B Natriuret Pep 740 Influenza Typ A,B (EIA) Negative for flu a/b 02/12/19 20:39 WBC RBC Hgb Hct MCV MCH MCHC RDW Plt Count MPV Neut % (Auto) Lymph % (Auto) Carbon % (Auto) Eos % (Auto) Baso % (Auto) Neut # (Auto) Lymph # (Auto) Carbon # (Auto) Eos # (Auto) Baso # (Auto) pCO2 47 H pO2 54 L HCO3 33.0 H ABG pH 7.48 H ABG Total CO2 36.4 H ABG O2 Saturation 98.0 ABG O2 Content 11.8 L ABG Base Excess 10.4 H ABG Hemoglobin 9.0 L ABG Carboxyhemoglobin 3.1 H POC ABG HHb (Measured) 1.9 ABG Methemoglobin 2.0 ABG O2 Capacity 12.0 L Conor Test Yes A-a O2 Difference 101.0 Hgb O2 Saturation 93.0 L FiO2 30.0 Sodium Potassium Chloride Carbon Dioxide Anion Gap BUN Creatinine Est GFR ( Amer) Est GFR (Non-Af Amer) Random Glucose Calcium Troponin I NT-Pro-B Natriuret Pep Influenza Typ A,B (EIA) Assessment & Plan - Assessment and Plan (Free Text) Assessment: A/P: 73 y/o F with PMH of HTN, CKD stage 3B, IDDM, renal artery stenosis, s/p stent in Jul, peripheral arterial disease, and recent SAH 01/31 admitted to [facility] for evaluation and treatment of COPD exacerbation/CHF exacerbation and Pneumonia. Dyspnea, likely due to COPD exacerbation/CHF exacerbation - F/u Official CXR - S/p Lasix and Solumedrol + Duoneb - Consult Pulmonary, f/u recommendations - Consult Cardio, f/u recommendations - C/w Solumedrol 30mg Q8H - C/w Duoneb NANDO Q6H - C/w daily Lasix 40mg (hx of CKD) - On ZOsyn and Azithromycin Hospital-Acquired Pneumonia (HAP) - S/p Levo and Zosyn - F/u Official CXR - Pulmonary Consult, f/u recommendations - START Zosyn and Azithromycin - F/u blood Cx Lower Extremities Pain/Edema - U/S LEs: No DVT - Consult Vascular Dr. Romano, f/u recs - C/w LAsix 40mg daily - C/w pain management Recent SAH - Monitor for any headaches or clinical changes - Avoid Anticoag CKD - Avoid nephrotoxic medications or use with caution - Continue monitoring - possible CHF, avoid fluid overload/IVF Insulin dependent diabetes mellitus II -HgA1C 10.0 on 11/14/17 -c/w [id number] units qhs, Humalog 18 units TID. -c/w Accuchecks and sliding scale insulin -Hypoglycemia protocol Hypertension -Chronic, Controlled -c/w home meds -monitor DVT prophylaxis -SCDs for now due to low Plt and recent SAH Code status -full code Plan discussed with Dr. Mcdaniels <Abner Mcdaniels - Last Filed: 02/13/19 12:18> Results - Vital Signs Recent Vital Signs: Last Vital Signs Temp 97.3 F L 02/13/19 09:14 Pulse 82 02/13/19 09:43 Resp 20 03/18/19 09:14 BP 158/55 H 02/13/19 09:43 Pulse Ox 96 02/13/19 11:41 - Labs Result Diagrams: 02/13/19 04:25 02/13/19 04:25 Labs: Laboratory Results - last 24 hr 02/12/19 02/12/19 02/12/19 20:15 20:15 20:15 WBC 7.4 RBC 3.13 L Hgb 8.7 L Hct 26.7 L MCV 85.2 MCH 27.9 MCHC 32.7 L RDW 15.3 H Plt Count 179 MPV 8.7 Neut % (Auto) 72.0 Lymph % (Auto) 14.4 L Carbon % (Auto) 8.0 Eos % (Auto) 4.7 H Baso % (Auto) 0.9 Neut # (Auto) 5.3 Lymph # (Auto) 1.1 Carbon # (Auto) 0.6 Eos # (Auto) 0.3 Baso # (Auto) 0.1 Neutrophils % (Manual) Band Neutrophils % Lymphocytes % (Manual) Monocytes % (Manual) Basophils % (Manual) Platelet Estimate Hypochromasia (manual) Anisocytosis (manual) Target Cells Tear Drop Cells pCO2 pO2 HCO3 ABG pH ABG Total CO2 ABG O2 Saturation ABG O2 Content ABG Base Excess ABG Hemoglobin ABG Carboxyhemoglobin POC ABG HHb (Measured) ABG Methemoglobin ABG O2 Capacity Conor Test A-a O2 Difference Hgb O2 Saturation FiO2 Sodium 137 Potassium 4.6 Chloride 94 L Carbon Dioxide 29 Anion Gap 19 BUN 22 H Creatinine 1.5 H Est GFR ( Amer) 41 Est GFR (Non-Af Amer) 34 POC Glucose (mg/dL) Random Glucose 265 H Calcium 8.9 Troponin I < 0.0120 NT-Pro-B Natriuret Pep 740 Urine Color Urine Clarity Urine pH Ur Specific Oran Urine Protein Urine Glucose (UA) Urine Ketones Urine Blood Urine Nitrate Urine Bilirubin Urine Urobilinogen Ur Leukocyte Esterase Urine RBC (Auto) Urine Microscopic WBC Ur Squamous Epith Cells Influenza Typ A,B (EIA) Negative for flu a/b 02/12/19 02/12/19 02/12/19 20:39 20:47 22:49 WBC RBC Hgb Hct MCV MCH MCHC RDW Plt Count MPV Neut % (Auto) Lymph % (Auto) Carbon % (Auto) Eos % (Auto) Baso % (Auto) Neut # (Auto) Lymph # (Auto) Carbon # (Auto) Eos # (Auto) Baso # (Auto) Neutrophils % (Manual) Band Neutrophils % Lymphocytes % (Manual) Monocytes % (Manual) Basophils % (Manual) Platelet Estimate Hypochromasia (manual) Anisocytosis (manual) Target Cells Tear Drop Cells pCO2 47 H pO2 54 L HCO3 33.0 H ABG pH 7.48 H ABG Total CO2 36.4 H ABG O2 Saturation 98.0 ABG O2 Content 11.8 L ABG Base Excess 10.4 H ABG Hemoglobin 9.0 L ABG Carboxyhemoglobin 3.1 H POC ABG HHb (Measured) 1.9 ABG Methemoglobin 2.0 ABG O2 Capacity 12.0 L Conor Test Yes A-a O2 Difference 101.0 Hgb O2 Saturation 93.0 L FiO2 30.0 Sodium Potassium Chloride Carbon Dioxide Anion Gap BUN Creatinine Est GFR ( Amer) Est GFR (Non-Af Amer) POC Glucose (mg/dL) 299 H 338 H Random Glucose Calcium Troponin I NT-Pro-B Natriuret Pep Urine Color Urine Clarity Urine pH Ur Specific Oran Urine Protein Urine Glucose (UA) Urine Ketones Urine Blood Urine Nitrate Urine Bilirubin Urine Urobilinogen Ur Leukocyte Esterase Urine RBC (Auto) Urine Microscopic WBC Ur Squamous Epith Cells Influenza Typ A,B (EIA) 02/13/19 02/13/19 02/13/19 00:45 04:25 04:25 WBC 8.0 RBC 3.37 L Hgb 9.5 L Hct 28.3 L MCV 84.1 MCH 28.2 MCHC 33.5 RDW 15.0 H Plt Count 200 MPV 8.8 Neut % (Auto) 90.8 H Lymph % (Auto) 7.8 L Carbon % (Auto) 1.2 Eos % (Auto) 0.1 Baso % (Auto) 0.1 Neut # (Auto) 7.3 H Lymph # (Auto) 0.6 L Carbon # (Auto) 0.1 Eos # (Auto) 0.0 Baso # (Auto) 0.0 Neutrophils % (Manual) 87 H Band Neutrophils % 2 Lymphocytes % (Manual) 9 L Monocytes % (Manual) 1 Basophils % (Manual) 1 Platelet Estimate Normal Hypochromasia (manual) Slight Anisocytosis (manual) Slight Target Cells Slight Tear Drop Cells Slight pCO2 pO2 HCO3 ABG pH ABG Total CO2 ABG O2 Saturation ABG O2 Content ABG Base Excess ABG Hemoglobin ABG Carboxyhemoglobin POC ABG HHb (Measured) ABG Methemoglobin ABG O2 Capacity Conor Test A-a O2 Difference Hgb O2 Saturation FiO2 Sodium 136 Potassium 4.6 Chloride 89 L Carbon Dioxide 30 Anion Gap 22 H BUN 25 H Creatinine 1.7 H Est GFR ( Amer) 36 Est GFR (Non-Af Amer) 30 POC Glucose (mg/dL) Random Glucose 366 H Calcium 9.2 Troponin I NT-Pro-B Natriuret Pep Urine Color Straw Urine Clarity Clear Urine pH 6.0 Ur Specific Oran 1.010 Urine Protein 100 Urine Glucose (UA) 50 Urine Ketones Negative Urine Blood Small Urine Nitrate Negative Urine Bilirubin Negative Urine Urobilinogen 0.2-1.0 Ur Leukocyte Esterase Neg Urine RBC (Auto) 1 Urine Microscopic WBC < 1 Ur Squamous Epith Cells < 1 Influenza Typ A,B (EIA) 02/13/19 02/13/19 02/13/19 05:39 06:31 11:34 WBC RBC Hgb Hct MCV MCH MCHC RDW Plt Count MPV Neut % (Auto) Lymph % (Auto) Carbon % (Auto) Eos % (Auto) Baso % (Auto) Neut # (Auto) Lymph # (Auto) Carbon # (Auto) Eos # (Auto) Baso # (Auto) Neutrophils % (Manual) Band Neutrophils % Lymphocytes % (Manual) Monocytes % (Manual) Basophils % (Manual) Platelet Estimate Hypochromasia (manual) Anisocytosis (manual) Target Cells Tear Drop Cells pCO2 pO2 HCO3 ABG pH ABG Total CO2 ABG O2 Saturation ABG O2 Content ABG Base Excess ABG Hemoglobin ABG Carboxyhemoglobin POC ABG HHb (Measured) ABG Methemoglobin ABG O2 Capacity Conor Test A-a O2 Difference Hgb O2 Saturation FiO2 Sodium Potassium Chloride Carbon Dioxide Anion Gap BUN Creatinine Est GFR ( Amer) Est GFR (Non-Af Amer) POC Glucose (mg/dL) 393 H 358 H 493 H* Random Glucose Calcium Troponin I NT-Pro-B Natriuret Pep Urine Color Urine Clarity Urine pH Ur Specific Oran Urine Protein Urine Glucose (UA) Urine Ketones Urine Blood Urine Nitrate Urine Bilirubin Urine Urobilinogen Ur Leukocyte Esterase Urine RBC (Auto) Urine Microscopic WBC Ur Squamous Epith Cells Influenza Typ A,B (EIA) 02/13/19 11:35 WBC RBC Hgb Hct MCV MCH MCHC RDW Plt Count MPV Neut % (Auto) Lymph % (Auto) Carbon % (Auto) Eos % (Auto) Baso % (Auto) Neut # (Auto) Lymph # (Auto) Carbon # (Auto) Eos # (Auto) Baso # (Auto) Neutrophils % (Manual) Band Neutrophils % Lymphocytes % (Manual) Monocytes % (Manual) Basophils % (Manual) Platelet Estimate Hypochromasia (manual) Anisocytosis (manual) Target Cells Tear Drop Cells pCO2 pO2 HCO3 ABG pH ABG Total CO2 ABG O2 Saturation ABG O2 Content ABG Base Excess ABG Hemoglobin ABG Carboxyhemoglobin POC ABG HHb (Measured) ABG Methemoglobin ABG O2 Capacity Conor Test A-a O2 Difference Hgb O2 Saturation FiO2 Sodium Potassium Chloride Carbon Dioxide Anion Gap BUN Creatinine Est GFR ( Amer) Est GFR (Non-Af Amer) POC Glucose (mg/dL) 471 H* Random Glucose Calcium Troponin I NT-Pro-B Natriuret Pep Urine Color Urine Clarity Urine pH Ur Specific Oran Urine Protein Urine Glucose (UA) Urine Ketones Urine Blood Urine Nitrate Urine Bilirubin Urine Urobilinogen Ur Leukocyte Esterase Urine RBC (Auto) Urine Microscopic WBC Ur Squamous Epith Cells Influenza Typ A,B (EIA) Attending/Attestation - Attestation I have personally seen and examined this patient.: Yes I have fully participated in the care of the patient.: Yes I have reviewed all pertinent clinical information: Yes Notes (Text): 02/13/19 11:52 I saw, examined and discussed this patient with Dr Green. I agree with the assessment and plan outlined. This is a 73 years old female with hx of PAD, HTN DM II and subaracnoid Hemorrhage comes with worsening SOB, cough and chest tightness with expiratory wheezes at the lung base. Pro BNP is 740 with CXR showing right lobe infiltrate. Treat Pneumonia with Azithromycin and Zosyn. Treat for COPD with Duoneb and Bronchodilators. Consult Pulmonary Follow Hb and continue home medication for Diabetes Abner Mcdaniels MD
[2019-02-12] MEDS ORDERED: Acetaminophen 650mg/20.3ml solution UD PO PRN (21:55)
[2019-02-12] MEDS: Insulin Detemir 100 Units/ml Inj SC SCH (23:34)
[2019-02-12] MEDS ORDERED: Dextrose 50% SYRINGE Inj (50 ml) IV PRN (23:46)
[2019-02-12] MEDS ORDERED: Glucagon Recombinant 1 mg Inj IM PRN (23:46)
--- NOTE | 2019-02-13 00:07 | US ---
Date of service: 02/12/2019 PROCEDURE: Bilateral lower extremity venous duplex Doppler. HISTORY: lower leg swelling COMPARISON: None available. TECHNIQUE: Bilateral common femoral, superficial femoral, popliteal and posterior tibial veins were evaluated. Flow was assessed with color Doppler, compressibility, assessment of phasic flow and augmentation response. FINDINGS: COMMON FEMORAL VEIN: Right CFV: Unremarkable. Left CFV: Unremarkable. SUPERFICIAL FEMORAL VEIN: Right SFV: Unremarkable. Left SFV: Unremarkable. POPLITEAL VEIN: Right Popliteal: Unremarkable. Left Popliteal: Unremarkable. POSTERIOR TIBIAL VEIN: Right PTV: Unremarkable. Left PTV: Unremarkable. OTHER FINDINGS: None. IMPRESSION: No evidence of deep venous thrombosis.
[2019-02-13] MEDS: Benzocaine/Menthol (Cepacol) Lozenge PO PRN ×2 (00:53→09:53)
[2019-02-13 00:57] LABS: SQUAMOUS EPITHIAL < 1 /hpf (0-5); URINE BILIRUBIN NEGATIVE (NEGATIVE); URINE BLOOD SMALL (NEGATIVE); URINE CLARITY CLEAR (Clear); URINE COLOR STRAW (YELLOW); URINE GLUCOSE (UA) 50 mg/dL (NEGATIVE); URINE LEUKOCYTE ESTERASE NEG Leu/uL (Negative); URINE PROTEIN 100 mg/dL (NEGATIVE); URINE UROBILINOGEN 0.2-1.0 mg/dL (0.2-1.0)
[2019-02-13] MEDS ORDERED: Insulin Lispro (humaLOG) 100 Units/ml Inj SC STA (05:45)
[2019-02-13] MEDS: MethylPREDNISolone 40 mg Vial IVP SCH ×2 (06:00→17:08)
[2019-02-13 06:28] LABS: BASO % 0.1 % (0.0-2.0); EOS % 0.1 % (0.0-4.0); HEMOGLOBIN 9.5 g/dL (12.0-16.0); LYMPH # 0.6 K/uL (1.0-4.3); LYMPH % 7.8 % (20.0-40.0); MEAN CELL VOLUME 84.1 fl (81.0-99.0); MEAN CORPUSCULAR HEMOGLOBIN 28.2 pg (27.0-31.0); MEAN CORPUSCULAR HGB CONC 33.5 g/dL (33.0-37.0); MEAN PLATELET VOLUME 8.8 fl (7.2-11.7); MONO # 0.1 K/uL (0.0-0.8); MONO % 1.2 % (0.0-10.0); NEUT # 7.3 K/uL (1.8-7.0); NEUT % 90.8 % (50.0-75.0); NRBC % 0.1 % (0.0-0.0); PLATELET COUNT 200 K/uL (130-400); RBC 3.37 Mil/uL (3.80-5.20)
[2019-02-13 06:35] LABS: CALCIUM 9.2 mg/dL (8.4-10.2)
[2019-02-13] MEDS: Albuterol-Ipratrop 3 mg / 0.5 (3 ml) UD INH SCH ×3 (07:42→19:19)
--- NOTE | 2019-02-13 08:01 | CARD ---
APPROVED REPORT Date of service: 02/12/2019 EKG Measurement Heart [id number] <Conclusion> Normal sinus rhythm Minimal voltage criteria for LVH, may be normal variant Borderline ECG
[2019-02-13] MEDS: Insulin Lispro (humaLOG) 100 Units/ml Inj SC SCH ×7 (08:38→21:40)
[2019-02-13 09:29] LABS: ANISOCYTOSIS SLIGHT; BANDS 2 % (0-2); BASOPHIL 1 % (0-2); HYPOCHROMIC SLIGHT; LYMPHOCYTE 9 % (20-50); MONOCYTE 1 % (0-10); NEUTROPHIL 87 % (42-75); PLATELET ESTIMATE NORMAL (NORMAL); TOTAL CELLS COUNTED 100
[2019-02-13 09:30] LABS: TARGET CELLS SLIGHT; TEARDROP CELLS SLIGHT
[2019-02-13] MEDS: Multivitamin Vitamin B Complex (Nephro-Vite) Tab PO SCH (09:41)
[2019-02-13] MEDS: Piperacillin/Tazobact 3.375 GM in Sodium Chloride 0.9% 100 ML IVPB SCH ×2 (10:02→17:16)
--- NOTE | 2019-02-13 10:03 | CP.PCM.PN ---
Subjective - Date & Time of Evaluation Date of Evaluation: 02/13/19 Time of Evaluation: 10:03 - Subjective Subjective: Patient seen and examined today at bedside c/o mild sob, cough and LE edema, no acute overnight events. Otherwise she denies fever, chills, CP or abd pain. Objective - Vital Signs/Intake and Output Vital Signs (last 24 hours): Temp Pulse Resp BP Pulse Ox 97.3 F L 82 20 158/55 H 95 02/13/19 09:14 02/13/19 09:43 02/13/19 09:14 02/13/19 09:43 02/13/19 09:14 - Medications Medications: Current Medications Acetaminophen (Tylenol 650mg/20.3ml Solution Ud) 1,000 mg PO Q6 PRN PRN Reason: FEVER OR PAIN Acetaminophen (Tylenol 325mg Tab) 650 mg PO Q6 PRN PRN Reason: Pain, moderate (4-7) Last Admin: 02/13/19 06:37 Dose: 650 mg Albuterol/Ipratropium (Duoneb 3 Mg/0.5 Mg (3 Ml) Ud) 3 ml INH RQ6 NANDO Stop: 02/14/19 17:00 Last Admin: 02/13/19 07:42 Dose: 3 ml Aliskiren (Tekturna) 300 mg PO DAILY [facility] Amitriptyline HCl (Elavil) 25 mg PO HS [facility] Last Admin: 02/12/19 23:34 Dose: 25 mg Amlodipine Besylate (Norvasc) 10 mg PO DAILY [facility] Last Admin: 02/13/19 09:40 Dose: 10 mg Atorvastatin Calcium (Lipitor) 80 mg PO DAILY [facility] Last Admin: 02/13/19 09:42 Dose: 80 mg Azithromycin (Zithromax) 250 mg PO DAILY [facility]; Protocol Stop: 02/17/19 09:01 Benzocaine/Menthol (Cepacol Sore Throat) 1 katy PO Q2 PRN PRN Reason: Sore Throat Last Admin: 02/13/19 00:53 Dose: 1 katy Dextrose (Dextrose 50% Inj) 0 ml IV STAT PRN; Protocol PRN Reason: Hypoglycemia Protocol Dextrose (Glutose 15) 0 gm PO ONCE PRN; Protocol PRN Reason: Hypoglycemia Protocol Ezetimibe (Zetia) 10 mg PO DAILY [facility] Last Admin: 02/13/19 09:41 Dose: 10 mg Fluticasone Propionate (Flonase) 1 spr SONIA BID [facility] Last Admin: 02/13/19 09:42 Dose: 1 spr Furosemide (Lasix) 40 mg PO DAILY [facility] Last Admin: 02/13/19 09:42 Dose: 40 mg Gabapentin (Neurontin) 1,200 mg PO TID [facility] Last Admin: 02/13/19 09:41 Dose: 1,200 mg Glipizide (Glucotrol) 5 mg PO DAILY [facility] Last Admin: 02/13/19 09:43 Dose: 5 mg Glucagon (Glucagen Diagnostic Kit) 0 mg IM STAT PRN; Protocol PRN Reason: Hypoglycemia Protocol Home Med (Vit D2) 125 mg PO DAILY [facility] Piperacillin Sod/Tazobactam (Sod 3.375 gm/ Sodium Chloride) 100 mls @ 100 mls/hr IVPB Q8H [facility]; Protocol Insulin Detemir (Levemir) 50 units SC HS [facility] Last Admin: 02/12/19 23:34 Dose: 50 units Insulin Human Lispro (Humalog) 18 units SC TID [facility] Insulin Human Lispro (Humalog) 0 units SC ACHS [facility]; Protocol Last Admin: 02/13/19 08:38 Dose: 8 u Losartan Potassium (Cozaar) 100 mg PO DAILY [facility] Last Admin: 02/13/19 09:43 Dose: 100 mg Methylprednisolone (Solu-Medrol) 30 mg IVP Q8H [facility] Last Admin: 02/13/19 06:00 Dose: 30 mg Ondansetron HCl (Zofran Inj) 4 mg IVP Q6 PRN PRN Reason: Nausea/Vomiting Spironolactone (Aldactone) 25 mg PO DAILY [facility] Tramadol HCl (Ultram) 50 mg PO TID [facility] Vitamin B Complex/Vit C/Folic Acid (Nephro-Briseida) 1 tab PO DAILY [facility] Last Admin: 02/13/19 09:41 Dose: 1 tab - Labs Labs: 02/13/19 04:25 02/13/19 04:25 - Constitutional Appears: No Acute Distress - Head Exam Head Exam: NORMAL INSPECTION - Respiratory Exam Respiratory Exam: Decreased Breath Sounds, Rales (difuse b/l ), NORMAL BREATHING PATTERN. absent: Rhonchi, Wheezes - Cardiovascular Exam Cardiovascular Exam: REGULAR RHYTHM, +S1, +S2. absent: Tachycardia - GI/Abdominal Exam GI & Abdominal Exam: Soft, Normal Bowel Sounds. absent: Distended, Tenderness - Extremities Exam Extremities Exam: absent: Calf Tenderness Additional comments: B/L LE Edema, + venous stasis skin changes b/l, no open ulcer or sign of infections. + tenderness b/l LEs (Chronic) - Neurological Exam Neurological Exam: Alert, Awake, Oriented x3 - Skin Skin Exam: Dry, Warm Assessment and Plan - Assessment and Plan (Free Text) Assessment: 73 y/o F with PMH of HTN, CKD stage 3B, IDDM, renal artery stenosis, s/p stent in Jul, peripheral arterial disease, and recent SAH 01/31 admitted to [facility] for evaluation and treatment of COPD exacerbation/CHF exacerbation and Hospital Acq Pneumonia. Plan: Dyspnea, likely due to COPD exacerbation/CHF exacerbation - S/p Lasix and Solumedrol + Duoneb - Consult Pulmonary, f/u recommendations - Consult Cardio, f/u recommendations - C/w Solumedrol 30mg Q8H - C/w Duoneb NANDO Q6H - Lasix 40 mg IV stat - C/w daily Lasix 40mg - daily I&O Hospital-Acquired Pneumonia (HAP) - S/p Levo and Zosyn - CXR: R lower PNA, moderate pulmonary venous congestion - Pulmonary Consult, f/u recommendations - on Zosyn and Azithromycin - Robitussin prn - F/u blood Cx Lower Extremities Pain/Edema - U/S LEs: No DVT - Consult Vascular Dr. Romano, f/u recs - Lasix 40mg daily - pain management - I&O Recent SAH - Monitor for any headaches or clinical changes - Avoid Anticoag CKD - Cr 1.7 - Avoid nephrotoxic medications or use with caution - Continue monitoring - avoid fluid overload/IVF Insulin dependent diabetes mellitus II - HgA1C 10.0 02/01/19 - c/w [id number] units qhs, Humalog 18 units TID. - c/w Accuchecks and sliding scale insulin - Hypoglycemia protocol Hypertension - Chronic, in the high side - c/w home meds - monitor DVT prophylaxis -SCDs for now due to low Plt and recent SAH Code status -full code Plan discussed with Dr. Celia Delgado PGY 2
--- NOTE | 2019-02-13 10:57 | RAD ---
Date of service: 02/12/2019 PROCEDURE: CHEST RADIOGRAPH, 1 VIEW HISTORY: dyspnea COMPARISON: 01/31/2019. FINDINGS: LUNGS: The lungs are well inflated. There is moderate pulmonary venous congestion and mild interstitial pulmonary edema. There is interval development of airspace disease in the right lower lobe. PLEURA: No pneumothorax or pleural effusion. CARDIOVASCULAR: Mild cardiomegaly and prominent central vasculature. There are aortic atherosclerotic calcifications present. OSSEOUS STRUCTURES: Within normal limits for the patient's age. VISUALIZED UPPER ABDOMEN: Normal. OTHER FINDINGS: None. IMPRESSION: Right lower lobe pneumonia. Follow-up after medical management is recommended to ensure complete resolution. Moderate pulmonary venous congestion
[2019-02-13] MEDS: guaiFENesin DM 200 mg-20 mg/10 ml UD PO PRN (12:06)
[2019-02-13] MEDS: Cholecalciferol 1,000 INTLU TAB PO SCH (12:31)
[2019-02-13] MEDS ORDERED: Insulin Lispro (humaLOG) 100 Units/ml Inj SC ONE (13:29)
--- NOTE | 2019-02-13 14:03 | CP.PCM.CON ---
History of Present Illness - History of Present Illness History of Present Illness: Pulmonary consult for a 73 y/o F, Hx of COPD ( Former smoker of 2 PPD, quit 5 yrs ago), brought to ER [facility] [place] on 02/12/19, to be evaluated for moderate SOB that began 1 week [employer], associated to persistent cough, non productive, non bleeding, nasal congestion, expiratory wheezing, GUZMÁN. Pt using Nebulizer Tx, her home O2 raised to 5 L with no improvement. Worsening symptoms: Chest tightness with coughing, edema BLE. Aggravated factor: Walking/exercise, ADL's. Other PMHx: HTN, CHF, CKD, PVD, IDDM, Renal artery stenosis, Angioplasty R Femoral, Popliteal, Peroneal 2012, s/p Renal Stent Jul 2017, on last admission to [facility] on 02/01/19 due to AMS, s/p syncope at home sustaining R frontal subarachnoid hemorrhage and tiny posterior frontal hemorrhage contusion on Head CT. Denied: Fever, chills, n/v/d, abdominal pain, urinary symptoms, CP palpitations, syncope, sick contact, recent travel out of [facility]. CXR: RLL PNA. Ext U-S: No DVT. Review of Systems - Constitutional Constitutional: Weakness, Other (overweight) - EENT Eyes: Other (negative) Nose/Mouth/Throat: Nasal Congestion - Cardiovascular Cardiovascular: Leg Edema, Other (chest tightness.) - Respiratory Respiratory: Cough, Dyspnea, Dyspnea on Exertion, Wheezing, Chest Congestion - Gastrointestinal Gastrointestinal: Other (negative) - Genitourinary Genitourinary: Other (negative) - Musculoskeletal Musculoskeletal: Arthralgias - Integumentary Integumentary: Other (negative) - Neurological Neurological: Weakness - Psychiatric Psychiatric: Other (negative) - Endocrine Endocrine: Other (obese BMI 33.9) - Hematologic/Lymphatic Hematologic: Other (negative) Past Patient History - Past Medical History & Family History Past Medical History?: Yes Pertinent Family History: Unknown - Past Social History Smoking Status: Former Smoker Alcohol: None Drugs: Denies Home Situation {Lives}: With Family - CARDIAC Hx Cardiac Disorders: Yes Hx Congestive Heart Failure: Yes Hx Hypercholesterolemia: Yes Hx Hypertension: Yes Hx Peripheral Edema: Yes (PRESENTLY) - PULMONARY Hx Respiratory Disorders: Yes Hx Chronic Obstructive Pulmonary Disease (COPD): Yes - NEUROLOGICAL Hx Neurological Disorder: No - HEENT Hx HEENT Problems: Yes (SEASONAL ALLERGIES) - RENAL Hx Chronic Kidney Disease: Yes (CKD STATES KIDNEYS 38PERCENT PER PT) - ENDOCRINE/METABOLIC Hx Endocrine Disorders: Yes Hx Diabetes Mellitus Type 2: Yes - HEMATOLOGICAL/ONCOLOGICAL Hx Blood Disorders: No - INTEGUMENTARY Hx Dermatological Problems: No - MUSCULOSKELETAL/RHEUMATOLOGICAL Hx Musculoskeletal Disorders: Yes Hx Arthritis: Yes (RIGHT KNEE) - GASTROINTESTINAL Hx Gastrointestinal Disorders: No - GENITOURINARY/GYNECOLOGICAL Hx Genitourinary Disorders: No - PSYCHIATRIC Hx Psychophysiologic Disorder: No Hx Substance Use: No - SURGICAL HISTORY Hx Surgeries: Yes Hx Tonsillectomy: Yes - ANESTHESIA Hx Anesthesia: Yes Hx Anesthesia Reactions: No Hx Malignant Hyperthermia: No Has any member of the family had a problem w/ anesthesia?: No Meds Allergies/Adverse Reactions: Allergies Allergy/AdvReac Type Severity Reaction Status Date / Time No Known Allergies Allergy Verified 02/01/19 08:03 - Medications Medications: Current Medications Acetaminophen (Tylenol 650mg/20.3ml Solution Ud) 1,000 mg PO Q6 PRN PRN Reason: FEVER OR PAIN Acetaminophen (Tylenol 325mg Tab) 650 mg PO Q6 PRN PRN Reason: Pain, moderate (4-7) Last Admin: 02/13/19 06:37 Dose: 650 mg Albuterol/Ipratropium (Duoneb 3 Mg/0.5 Mg (3 Ml) Ud) 3 ml INH RQ6 NANDO Stop: 02/14/19 17:00 Last Admin: 02/13/19 13:17 Dose: 3 ml Aliskiren (Tekturna) 300 mg PO DAILY [facility] Last Admin: 02/13/19 12:09 Dose: Not Given Amitriptyline HCl (Elavil) 25 mg PO [facility] Last Admin: 02/12/19 23:34 Dose: 25 mg Amlodipine Besylate (Norvasc) 10 mg PO DAILY [facility] Last Admin: 02/13/19 09:40 Dose: 10 mg Atorvastatin Calcium (Lipitor) 80 mg PO DAILY [facility] Last Admin: 02/13/19 09:42 Dose: 80 mg Azithromycin (Zithromax) 250 mg PO DAILY [facility]; Protocol Stop: 02/17/19 09:01 Benzocaine/Menthol (Cepacol Sore Throat) 1 katy PO Q2 PRN PRN Reason: Sore Throat Last Admin: 02/13/19 09:53 Dose: 1 katy Cholecalciferol (Vitamin D) 1,000 intlu PO DAILY [facility] Last Admin: 02/13/19 12:31 Dose: 1,000 intlu Dextrose (Dextrose 50% Inj) 0 ml IV STAT PRN; Protocol PRN Reason: Hypoglycemia Protocol Dextrose (Glutose 15) 0 gm PO ONCE PRN; Protocol PRN Reason: Hypoglycemia Protocol Ezetimibe (Zetia) 10 mg PO DAILY [facility] Last Admin: 02/13/19 09:41 Dose: 10 mg Fluticasone Propionate (Flonase) 1 spr SONIA BID [facility] Last Admin: 02/13/19 09:42 Dose: 1 spr Furosemide (Lasix) 40 mg PO DAILY [facility] Last Admin: 02/13/19 09:42 Dose: 40 mg Gabapentin (Neurontin) 1,200 mg PO TID [facility] Last Admin: 02/13/19 09:41 Dose: 1,200 mg Glipizide (Glucotrol) 5 mg PO DAILY [facility] Last Admin: 02/13/19 09:43 Dose: 5 mg Glucagon (Glucagen Diagnostic Kit) 0 mg IM STAT PRN; Protocol PRN Reason: Hypoglycemia Protocol Guaifenesin/Dextromethorphan (Robitussin Dm) 10 ml PO Q4 PRN PRN Reason: Cough Last Admin: 02/13/19 12:06 Dose: 10 ml Piperacillin Sod/Tazobactam (Sod 3.375 gm/ Sodium Chloride) 100 mls @ 100 mls/hr IVPB Q8H [facility]; Protocol Last Admin: 02/13/19 10:02 Dose: 100 mls/hr Insulin Detemir (Levemir) 50 units SC HS [facility] Last Admin: 02/12/19 23:34 Dose: 50 units Insulin Human Lispro (Humalog) 18 units SC TID [facility] Last Admin: 02/13/19 12:15 Dose: 18 u Insulin Human Lispro (Humalog) 0 units SC ACHS [facility]; Protocol Last Admin: 02/13/19 12:06 Dose: 10 u Losartan Potassium (Cozaar) 100 mg PO DAILY [facility] Last Admin: 02/13/19 09:43 Dose: 100 mg Methylprednisolone (Solu-Medrol) 30 mg IVP Q8H [facility] Last Admin: 02/13/19 06:00 Dose: 30 mg Ondansetron HCl (Zofran Inj) 4 mg IVP Q6 PRN PRN Reason: Nausea/Vomiting Spironolactone (Aldactone) 25 mg PO DAILY [facility] Last Admin: 02/13/19 09:56 Dose: 25 mg Tramadol HCl (Ultram) 50 mg PO TID [facility] Vitamin B Complex/Vit C/Folic Acid (Nephro-Briseida) 1 tab PO DAILY [facility] Last Admin: 02/13/19 09:41 Dose: 1 tab Physical Exam - Constitutional Appears: No Acute Distress - Head Exam Head Exam: NORMAL INSPECTION - Eye Exam Eye Exam: PERRL - ENT Exam ENT Exam: Normal Exam - Neck Exam Neck exam: Positive for: Normal Inspection - Respiratory Exam Respiratory Exam: Decreased Breath Sounds (at bases, R>L), Wheezes (expiratory) - Cardiovascular Exam Cardiovascular Exam: REGULAR RHYTHM - GI/Abdominal Exam GI & Abdominal Exam: Normal Bowel Sounds, Soft - Extremities Exam Additional comments: edema lower extremities, chronic legs skin venous stasis changes - Neurological Exam Neurological exam: Alert, Oriented x3 Additional comments: Awake, at times restless, - Psychiatric Exam Psychiatric exam: Normal Mood - Skin Skin Exam: Warm Results - Vital Signs Recent Vital Signs: Last Vital Signs Temp 97.3 F L 02/13/19 12:12 Pulse 85 02/13/19 12:12 Resp 18 02/13/19 12:12 BP 171/64 H 02/13/19 12:23 Pulse Ox 91 L 02/13/19 12:12 reviewed Janene - Labs Result Diagrams: 02/15/19 04:20 02/16/19 04:40 Labs: Laboratory Results - last 24 hr 02/12/19 02/12/19 02/12/19 20:15 20:15 20:15 WBC 7.4 RBC 3.13 L Hgb 8.7 L Hct 26.7 L MCV 85.2 MCH 27.9 MCHC 32.7 L RDW 15.3 H Plt Count 179 MPV 8.7 Neut % (Auto) 72.0 Lymph % (Auto) 14.4 L Wolfe % (Auto) 8.0 Eos % (Auto) 4.7 H Baso % (Auto) 0.9 Neut # (Auto) 5.3 Lymph # (Auto) 1.1 Wolfe # (Auto) 0.6 Eos # (Auto) 0.3 Baso # (Auto) 0.1 Neutrophils % (Manual) Band Neutrophils % Lymphocytes % (Manual) Monocytes % (Manual) Basophils % (Manual) Platelet Estimate Hypochromasia (manual) Anisocytosis (manual) Target Cells Tear Drop Cells pCO2 pO2 HCO3 ABG pH ABG Total CO2 ABG O2 Saturation ABG O2 Content ABG Base Excess ABG Hemoglobin ABG Carboxyhemoglobin POC ABG HHb (Measured) ABG Methemoglobin ABG O2 Capacity Conor Test A-a O2 Difference Hgb O2 Saturation FiO2 Sodium 137 Potassium 4.6 Chloride 94 L Carbon Dioxide 29 Anion Gap 19 BUN 22 H Creatinine 1.5 H Est GFR ( Amer) 41 Est GFR (Non-Af Amer) 34 POC Glucose (mg/dL) Random Glucose 265 H Calcium 8.9 Troponin I < 0.0120 NT-Pro-B Natriuret Pep 740 Urine Color Urine Clarity Urine pH Ur Specific Gordon Urine Protein Urine Glucose (UA) Urine Ketones Urine Blood Urine Nitrate Urine Bilirubin Urine Urobilinogen Ur Leukocyte Esterase Urine RBC (Auto) Urine Microscopic WBC Ur Squamous Epith Cells Influenza Typ A,B (EIA) Negative for flu a/b 02/12/19 02/12/19 02/12/19 20:39 20:47 22:49 WBC RBC Hgb Hct MCV MCH MCHC RDW Plt Count MPV Neut % (Auto) Lymph % (Auto) Wolfe % (Auto) Eos % (Auto) Baso % (Auto) Neut # (Auto) Lymph # (Auto) Wolfe # (Auto) Eos # (Auto) Baso # (Auto) Neutrophils % (Manual) Band Neutrophils % Lymphocytes % (Manual) Monocytes % (Manual) Basophils % (Manual) Platelet Estimate Hypochromasia (manual) Anisocytosis (manual) Target Cells Tear Drop Cells pCO2 47 H pO2 54 L HCO3 33.0 H ABG pH 7.48 H ABG Total CO2 36.4 H ABG O2 Saturation 98.0 ABG O2 Content 11.8 L ABG Base Excess 10.4 H ABG Hemoglobin 9.0 L ABG Carboxyhemoglobin 3.1 H POC ABG HHb (Measured) 1.9 ABG Methemoglobin 2.0 ABG O2 Capacity 12.0 L Conor Test Yes A-a O2 Difference 101.0 Hgb O2 Saturation 93.0 L FiO2 30.0 Sodium Potassium Chloride Carbon Dioxide Anion Gap BUN Creatinine Est GFR ( Amer) Est GFR (Non-Af Amer) POC Glucose (mg/dL) 299 H 338 H Random Glucose Calcium Troponin I NT-Pro-B Natriuret Pep Urine Color Urine Clarity Urine pH Ur Specific Gordon Urine Protein Urine Glucose (UA) Urine Ketones Urine Blood Urine Nitrate Urine Bilirubin Urine Urobilinogen Ur Leukocyte Esterase Urine RBC (Auto) Urine Microscopic WBC Ur Squamous Epith Cells Influenza Typ A,B (EIA) 02/13/19 02/13/19 02/13/19 00:45 04:25 04:25 WBC 8.0 RBC 3.37 L Hgb 9.5 L Hct 28.3 L MCV 84.1 MCH 28.2 MCHC 33.5 RDW 15.0 H Plt Count 200 MPV 8.8 Neut % (Auto) 90.8 H Lymph % (Auto) 7.8 L Wolfe % (Auto) 1.2 Eos % (Auto) 0.1 Baso % (Auto) 0.1 Neut # (Auto) 7.3 H Lymph # (Auto) 0.6 L Wolfe # (Auto) 0.1 Eos # (Auto) 0.0 Baso # (Auto) 0.0 Neutrophils % (Manual) 87 H Band Neutrophils % 2 Lymphocytes % (Manual) 9 L Monocytes % (Manual) 1 Basophils % (Manual) 1 Platelet Estimate Normal Hypochromasia (manual) Slight Anisocytosis (manual) Slight Target Cells Slight Tear Drop Cells Slight pCO2 pO2 HCO3 ABG pH ABG Total CO2 ABG O2 Saturation ABG O2 Content ABG Base Excess ABG Hemoglobin ABG Carboxyhemoglobin POC ABG HHb (Measured) ABG Methemoglobin ABG O2 Capacity Conor Test A-a O2 Difference Hgb O2 Saturation FiO2 Sodium 136 Potassium 4.6 Chloride 89 L Carbon Dioxide 30 Anion Gap 22 H BUN 25 H Creatinine 1.7 H Est GFR ( Amer) 36 Est GFR (Non-Af Amer) 30 POC Glucose (mg/dL) Random Glucose 366 H Calcium 9.2 Troponin I NT-Pro-B Natriuret Pep Urine Color Straw Urine Clarity Clear Urine pH 6.0 Ur Specific Gordon 1.010 Urine Protein 100 Urine Glucose (UA) 50 Urine Ketones Negative Urine Blood Small Urine Nitrate Negative Urine Bilirubin Negative Urine Urobilinogen 0.2-1.0 Ur Leukocyte Esterase Neg Urine RBC (Auto) 1 Urine Microscopic WBC < 1 Ur Squamous Epith Cells < 1 Influenza Typ A,B (EIA) 02/13/19 02/13/19 02/13/19 05:39 06:31 11:34 WBC RBC Hgb Hct MCV MCH MCHC RDW Plt Count MPV Neut % (Auto) Lymph % (Auto) Wolfe % (Auto) Eos % (Auto) Baso % (Auto) Neut # (Auto) Lymph # (Auto) Wolfe # (Auto) Eos # (Auto) Baso # (Auto) Neutrophils % (Manual) Band Neutrophils % Lymphocytes % (Manual) Monocytes % (Manual) Basophils % (Manual) Platelet Estimate Hypochromasia (manual) Anisocytosis (manual) Target Cells Tear Drop Cells pCO2 pO2 HCO3 ABG pH ABG Total CO2 ABG O2 Saturation ABG O2 Content ABG Base Excess ABG Hemoglobin ABG Carboxyhemoglobin POC ABG HHb (Measured) ABG Methemoglobin ABG O2 Capacity Conor Test A-a O2 Difference Hgb O2 Saturation FiO2 Sodium Potassium Chloride Carbon Dioxide Anion Gap BUN Creatinine Est GFR ( Amer) Est GFR (Non-Af Amer) POC Glucose (mg/dL) 393 H 358 H 493 H* Random Glucose Calcium Troponin I NT-Pro-B Natriuret Pep Urine Color Urine Clarity Urine pH Ur Specific Gordon Urine Protein Urine Glucose (UA) Urine Ketones Urine Blood Urine Nitrate Urine Bilirubin Urine Urobilinogen Ur Leukocyte Esterase Urine RBC (Auto) Urine Microscopic WBC Ur Squamous Epith Cells Influenza Typ A,B (EIA) 02/13/19 02/13/19 11:35 13:24 WBC RBC Hgb Hct MCV MCH MCHC RDW Plt Count MPV Neut % (Auto) Lymph % (Auto) Wolfe % (Auto) Eos % (Auto) Baso % (Auto) Neut # (Auto) Lymph # (Auto) Wolfe # (Auto) Eos # (Auto) Baso # (Auto) Neutrophils % (Manual) Band Neutrophils % Lymphocytes % (Manual) Monocytes % (Manual) Basophils % (Manual) Platelet Estimate Hypochromasia (manual) Anisocytosis (manual) Target Cells Tear Drop Cells pCO2 pO2 HCO3 ABG pH ABG Total CO2 ABG O2 Saturation ABG O2 Content ABG Base Excess ABG Hemoglobin ABG Carboxyhemoglobin POC ABG HHb (Measured) ABG Methemoglobin ABG O2 Capacity Conor Test A-a O2 Difference Hgb O2 Saturation FiO2 Sodium Potassium Chloride Carbon Dioxide Anion Gap BUN Creatinine Est GFR ( Amer) Est GFR (Non-Af Amer) POC Glucose (mg/dL) 471 H* 394 H Random Glucose Calcium Troponin I NT-Pro-B Natriuret Pep Urine Color Urine Clarity Urine pH Ur Specific Gordon Urine Protein Urine Glucose (UA) Urine Ketones Urine Blood Urine Nitrate Urine Bilirubin Urine Urobilinogen Ur Leukocyte Esterase Urine RBC (Auto) Urine Microscopic WBC Ur Squamous Epith Cells Influenza Typ A,B (EIA) reviewed J.P[facility] - Imaging and Cardiology Chest x-ray Status: Report reviewed by me ([email or web address]) Venous US Status: Report reviewed by me (MoisesP.) Assessment & Plan (1) RLL pneumonia Status: Acute Priority: High Comment: HCAP (2) COPD exacerbation Status: Chronic Priority: High - Assessment and Plan (Free Text) Plan: Continue O2 NC 2 L/M, Zithromax, Zosyn, Solu-Medrol, Duoneb and rest of Tx., f/u CT Chest - Date & Time Date: 02/13/19 Time: 11:20
--- NOTE | 2019-02-13 18:40 | CP.PCM.CON ---
History of Present Illness - History of Present Illness History of Present Illness: Jani Orellana, PGY-1, Cardiology Consult Note for Dr. Romano 73 year old female with past medical history of hypertension, CKD stage IIIB, IDDM, renal artery stenosis presents with 1 week of worsening dyspnea and cough. Patient had been trying home albuterol, lasix without relief. Patient reports dry cough, limited activity due to dyspnea, and lower extremity pain. Patient denied any associated chest pain, fever, nausea, vomiting, diaphoresis, left arm pain, or jaw pain. PMH: as stated above PSH: bilateral renal artery stenosis in 2013, angioplasty of the right femoral, popliteal, and peroneal arteries Allergies: NKDA FMHx: noncontributary SHx: former 2 PPD smoker, stopped smoking 5 years ago. denies any alcohol or recreational drug use PCP: Dr. 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 Romano Review of Systems - Review of Systems Review of Systems: except as mentioned in HPI Past Patient History - Past Medical History & Family History Past Medical History?: Yes - Past Social History Smoking Status: Former Smoker - CARDIAC Hx Congestive Heart Failure: Yes Hx Hypercholesterolemia: Yes Hx Hypertension: Yes Hx Peripheral Edema: Yes (PRESENTLY) - PULMONARY Hx Chronic Obstructive Pulmonary Disease (COPD): Yes - NEUROLOGICAL Hx Neurological Disorder: No - HEENT Hx HEENT Problems: Yes (SEASONAL ALLERGIES) - RENAL Hx Chronic Kidney Disease: Yes (CKD STATES KIDNEYS 38PERCENT PER PT) - ENDOCRINE/METABOLIC Hx Endocrine Disorders: Yes Hx Diabetes Mellitus Type 2: Yes - INTEGUMENTARY Hx Dermatological Problems: No - MUSCULOSKELETAL/RHEUMATOLOGICAL Hx Arthritis: Yes (RIGHT KNEE) - GASTROINTESTINAL Hx Gastrointestinal Disorders: No - GENITOURINARY/GYNECOLOGICAL Hx Genitourinary Disorders: No - PSYCHIATRIC Hx Psychophysiologic Disorder: No Hx Substance Use: No - SURGICAL HISTORY Hx Tonsillectomy: Yes - ANESTHESIA Hx Anesthesia: Yes Hx Anesthesia Reactions: No Hx Malignant Hyperthermia: No Has any member of the family had a problem w/ anesthesia?: No Meds Allergies/Adverse Reactions: Allergies Allergy/AdvReac Type Severity Reaction Status Date / Time No Known Allergies Allergy Verified 02/01/19 08:03 - Medications Medications: Current Medications Acetaminophen (Tylenol 650mg/20.3ml Solution Ud) 1,000 mg PO Q6 PRN PRN Reason: FEVER OR PAIN Acetaminophen (Tylenol 325mg Tab) 650 mg PO Q6 PRN PRN Reason: Pain, moderate (4-7) Last Admin: 02/13/19 06:37 Dose: 650 mg Albuterol/Ipratropium (Duoneb 3 Mg/0.5 Mg (3 Ml) Ud) 3 ml INH RQ6 NANDO Stop: 02/14/19 17:00 Last Admin: 02/13/19 13:17 Dose: 3 ml Aliskiren (Tekturna) 300 mg PO DAILY [facility] Last Admin: 02/13/19 12:09 Dose: Not Given Amitriptyline HCl (Elavil) 25 mg PO HS [facility] Last Admin: 02/12/19 23:34 Dose: 25 mg Amlodipine Besylate (Norvasc) 10 mg PO DAILY [facility] Last Admin: 02/13/19 09:40 Dose: 10 mg Atorvastatin Calcium (Lipitor) 80 mg PO DAILY [facility] Last Admin: 02/13/19 09:42 Dose: 80 mg Azithromycin (Zithromax) 250 mg PO DAILY [facility]; Protocol Stop: 02/17/19 09:01 Benzocaine/Menthol (Cepacol Sore Throat) 1 katy PO Q2 PRN PRN Reason: Sore Throat Last Admin: 02/13/19 09:53 Dose: 1 katy Cholecalciferol (Vitamin D) 1,000 intlu PO DAILY [facility] Last Admin: 02/13/19 12:31 Dose: 1,000 intlu Dextrose (Dextrose 50% Inj) 0 ml IV STAT PRN; Protocol PRN Reason: Hypoglycemia Protocol Dextrose (Glutose 15) 0 gm PO ONCE PRN; Protocol PRN Reason: Hypoglycemia Protocol Ezetimibe (Zetia) 10 mg PO DAILY [facility] Last Admin: 02/13/19 09:41 Dose: 10 mg Fluticasone Propionate (Flonase) 1 spr SONIA BID [facility] Last Admin: 02/13/19 17:08 Dose: 1 spr Furosemide (Lasix) 40 mg PO DAILY [facility] Last Admin: 02/13/19 09:42 Dose: 40 mg Gabapentin (Neurontin) 1,200 mg PO TID [facility] Last Admin: 02/13/19 17:11 Dose: 1,200 mg Glipizide (Glucotrol) 5 mg PO DAILY [facility] Last Admin: 02/13/19 09:43 Dose: 5 mg Glucagon (Glucagen Diagnostic Kit) 0 mg IM STAT PRN; Protocol PRN Reason: Hypoglycemia Protocol Guaifenesin/Dextromethorphan (Robitussin Dm) 10 ml PO Q4 PRN PRN Reason: Cough Last Admin: 02/13/19 12:06 Dose: 10 ml Piperacillin Sod/Tazobactam (Sod 3.375 gm/ Sodium Chloride) 100 mls @ 100 mls/hr IVPB Q8H [facility]; Protocol Last Admin: 02/13/19 17:16 Dose: 100 mls/hr Insulin Detemir (Levemir) 50 units SC HS [facility] Last Admin: 02/12/19 23:34 Dose: 50 units Insulin Human Lispro (Humalog) 18 units SC TID [facility] Last Admin: 02/13/19 17:10 Dose: 18 u Insulin Human Lispro (Humalog) 0 units SC ACHS [facility]; Protocol Last Admin: 02/13/19 17:09 Dose: 6 u Losartan Potassium (Cozaar) 100 mg PO DAILY [facility] Last Admin: 02/13/19 09:43 Dose: 100 mg Methylprednisolone (Solu-Medrol) 30 mg IVP Q8H [facility] Last Admin: 02/13/19 17:08 Dose: 30 mg Ondansetron HCl (Zofran Inj) 4 mg IVP Q6 PRN PRN Reason: Nausea/Vomiting Spironolactone (Aldactone) 25 mg PO DAILY [facility] Last Admin: 02/13/19 09:56 Dose: 25 mg Tramadol HCl (Ultram) 50 mg PO TID [facility] Vitamin B Complex/Vit C/Folic Acid (Nephro-Briseida) 1 tab PO DAILY [facility] Last Admin: 02/13/19 09:41 Dose: 1 tab Physical Exam - Constitutional Appears: Well, Non-toxic, No Acute Distress - Head Exam Head Exam: ATRAUMATIC, NORMAL INSPECTION, NORMOCEPHALIC - Eye Exam Eye Exam: EOMI, PERRL - ENT Exam ENT Exam: Mucous Membranes Moist - Respiratory Exam Respiratory Exam: Clear to Auscultation Bilateral, NORMAL BREATHING PATTERN - Cardiovascular Exam Cardiovascular Exam: REGULAR RHYTHM, RRR, +S1, +S2 - GI/Abdominal Exam GI & Abdominal Exam: Normal Bowel Sounds, Soft. absent: Tenderness - Extremities Exam Extremities exam: Positive for: full ROM, normal inspection, pedal edema (+2 and erythematous) - Neurological Exam Neurological exam: Alert, CN II-XII Intact, Oriented x3 - Skin Skin Exam: Dry, Erythema, Intact Results - Vital Signs Recent Vital Signs: Last Vital Signs Temp 98.3 F 02/13/19 16:43 Pulse 77 02/13/19 16:43 Resp 16 02/13/19 16:43 BP 148/64 02/13/19 16:43 Pulse Ox 96 02/13/19 16:43 - Labs Result Diagrams: 02/13/19 04:25 02/13/19 04:25 Labs: Laboratory Results - last 24 hr 02/12/19 02/12/19 02/12/19 20:15 20:15 20:15 WBC 7.4 RBC 3.13 L Hgb 8.7 L Hct 26.7 L MCV 85.2 MCH 27.9 MCHC 32.7 L RDW 15.3 H Plt Count 179 MPV 8.7 Neut % (Auto) 72.0 Lymph % (Auto) 14.4 L [place] % (Auto) 8.0 Eos % (Auto) 4.7 H Baso % (Auto) 0.9 Neut # (Auto) 5.3 Lymph # (Auto) 1.1 [place] # (Auto) 0.6 Eos # (Auto) 0.3 Baso # (Auto) 0.1 Neutrophils % (Manual) Band Neutrophils % Lymphocytes % (Manual) Monocytes % (Manual) Basophils % (Manual) Platelet Estimate Hypochromasia (manual) Anisocytosis (manual) Target Cells Tear Drop Cells pCO2 pO2 HCO3 ABG pH ABG Total CO2 ABG O2 Saturation ABG O2 Content ABG Base Excess ABG Hemoglobin ABG Carboxyhemoglobin POC ABG HHb (Measured) ABG Methemoglobin ABG O2 Capacity Conor Test A-a O2 Difference Hgb O2 Saturation FiO2 Sodium 137 Potassium 4.6 Chloride 94 L Carbon Dioxide 29 Anion Gap 19 BUN 22 H Creatinine 1.5 H Est GFR ( Amer) 41 Est GFR (Non-Af Amer) 34 POC Glucose (mg/dL) Random Glucose 265 H Calcium 8.9 Troponin I < 0.0120 NT-Pro-B Natriuret Pep 740 Urine Color Urine Clarity Urine pH Ur Specific Humphrey Urine Protein Urine Glucose (UA) Urine Ketones Urine Blood Urine Nitrate Urine Bilirubin Urine Urobilinogen Ur Leukocyte Esterase Urine RBC (Auto) Urine Microscopic WBC Ur Squamous Epith Cells Influenza Typ A,B (EIA) Negative for flu a/b 02/12/19 02/12/19 02/12/19 20:39 20:47 22:49 WBC RBC Hgb Hct MCV MCH MCHC RDW Plt Count MPV Neut % (Auto) Lymph % (Auto) [place] % (Auto) Eos % (Auto) Baso % (Auto) Neut # (Auto) Lymph # (Auto) [place] # (Auto) Eos # (Auto) Baso # (Auto) Neutrophils % (Manual) Band Neutrophils % Lymphocytes % (Manual) Monocytes % (Manual) Basophils % (Manual) Platelet Estimate Hypochromasia (manual) Anisocytosis (manual) Target Cells Tear Drop Cells pCO2 47 H pO2 54 L HCO3 33.0 H ABG pH 7.48 H ABG Total CO2 36.4 H ABG O2 Saturation 98.0 ABG O2 Content 11.8 L ABG Base Excess 10.4 H ABG Hemoglobin 9.0 L ABG Carboxyhemoglobin 3.1 H POC ABG HHb (Measured) 1.9 ABG Methemoglobin 2.0 ABG O2 Capacity 12.0 L Conor Test Yes A-a O2 Difference 101.0 Hgb O2 Saturation 93.0 L FiO2 30.0 Sodium Potassium Chloride Carbon Dioxide Anion Gap BUN Creatinine Est GFR ( Amer) Est GFR (Non-Af Amer) POC Glucose (mg/dL) 299 H 338 H Random Glucose Calcium Troponin I NT-Pro-B Natriuret Pep Urine Color Urine Clarity Urine pH Ur Specific Humphrey Urine Protein Urine Glucose (UA) Urine Ketones Urine Blood Urine Nitrate Urine Bilirubin Urine Urobilinogen Ur Leukocyte Esterase Urine RBC (Auto) Urine Microscopic WBC Ur Squamous Epith Cells Influenza Typ A,B (EIA) 02/13/19 02/13/19 02/13/19 00:45 04:25 04:25 WBC 8.0 RBC 3.37 L Hgb 9.5 L Hct 28.3 L MCV 84.1 MCH 28.2 MCHC 33.5 RDW 15.0 H Plt Count 200 MPV 8.8 Neut % (Auto) 90.8 H Lymph % (Auto) 7.8 L [place] % (Auto) 1.2 Eos % (Auto) 0.1 Baso % (Auto) 0.1 Neut # (Auto) 7.3 H Lymph # (Auto) 0.6 L [place] # (Auto) 0.1 Eos # (Auto) 0.0 Baso # (Auto) 0.0 Neutrophils % (Manual) 87 H Band Neutrophils % 2 Lymphocytes % (Manual) 9 L Monocytes % (Manual) 1 Basophils % (Manual) 1 Platelet Estimate Normal Hypochromasia (manual) Slight Anisocytosis (manual) Slight Target Cells Slight Tear Drop Cells Slight pCO2 pO2 HCO3 ABG pH ABG Total CO2 ABG O2 Saturation ABG O2 Content ABG Base Excess ABG Hemoglobin ABG Carboxyhemoglobin POC ABG HHb (Measured) ABG Methemoglobin ABG O2 Capacity Conor Test A-a O2 Difference Hgb O2 Saturation FiO2 Sodium 136 Potassium 4.6 Chloride 89 L Carbon Dioxide 30 Anion Gap 22 H BUN 25 H Creatinine 1.7 H Est GFR ( Amer) 36 Est GFR (Non-Af Amer) 30 POC Glucose (mg/dL) Random Glucose 366 H Calcium 9.2 Troponin I NT-Pro-B Natriuret Pep Urine Color Straw Urine Clarity Clear Urine pH 6.0 Ur Specific Humphrey 1.010 Urine Protein 100 Urine Glucose (UA) 50 Urine Ketones Negative Urine Blood Small Urine Nitrate Negative Urine Bilirubin Negative Urine Urobilinogen 0.2-1.0 Ur Leukocyte Esterase Neg Urine RBC (Auto) 1 Urine Microscopic WBC < 1 Ur Squamous Epith Cells < 1 Influenza Typ A,B (EIA) 02/13/19 02/13/19 02/13/19 05:39 06:31 11:34 WBC RBC Hgb Hct MCV MCH MCHC RDW Plt Count MPV Neut % (Auto) Lymph % (Auto) [place] % (Auto) Eos % (Auto) Baso % (Auto) Neut # (Auto) Lymph # (Auto) [place] # (Auto) Eos # (Auto) Baso # (Auto) Neutrophils % (Manual) Band Neutrophils % Lymphocytes % (Manual) Monocytes % (Manual) Basophils % (Manual) Platelet Estimate Hypochromasia (manual) Anisocytosis (manual) Target Cells Tear Drop Cells pCO2 pO2 HCO3 ABG pH ABG Total CO2 ABG O2 Saturation ABG O2 Content ABG Base Excess ABG Hemoglobin ABG Carboxyhemoglobin POC ABG HHb (Measured) ABG Methemoglobin ABG O2 Capacity [place] Test A-a O2 Difference Hgb O2 Saturation FiO2 Sodium Potassium Chloride Carbon Dioxide Anion Gap BUN Creatinine Est GFR ( Amer) Est GFR (Non-Af Amer) POC Glucose (mg/dL) 393 H 358 H 493 H* Random Glucose Calcium Troponin I NT-Pro-B Natriuret Pep Urine Color Urine Clarity Urine pH Ur Specific Humphrey Urine Protein Urine Glucose (UA) Urine Ketones Urine Blood Urine Nitrate Urine Bilirubin Urine Urobilinogen Ur Leukocyte Esterase Urine RBC (Auto) Urine Microscopic WBC Ur Squamous Epith Cells Influenza Typ A,B (EIA) 02/13/19 02/13/19 02/13/19 11:35 13:24 14:44 WBC RBC Hgb Hct MCV MCH MCHC RDW Plt Count MPV Neut % (Auto) Lymph % (Auto) [place] % (Auto) Eos % (Auto) Baso % (Auto) Neut # (Auto) Lymph # (Auto) [place] # (Auto) Eos # (Auto) Baso # (Auto) Neutrophils % (Manual) Band Neutrophils % Lymphocytes % (Manual) Monocytes % (Manual) Basophils % (Manual) Platelet Estimate Hypochromasia (manual) Anisocytosis (manual) Target Cells Tear Drop Cells pCO2 pO2 HCO3 ABG pH ABG Total CO2 ABG O2 Saturation ABG O2 Content ABG Base Excess ABG Hemoglobin ABG Carboxyhemoglobin POC ABG HHb (Measured) ABG Methemoglobin ABG O2 Capacity [place]or Test A-a O2 Difference Hgb O2 Saturation FiO2 Sodium Potassium Chloride Carbon Dioxide Anion Gap BUN Creatinine Est GFR ( Amer) Est GFR (Non-Af Amer) POC Glucose (mg/dL) 471 H* 394 H 328 H Random Glucose Calcium Troponin I NT-Pro-B Natriuret Pep Urine Color Urine Clarity Urine pH Ur Specific Humphrey Urine Protein Urine Glucose (UA) Urine Ketones Urine Blood Urine Nitrate Urine Bilirubin Urine Urobilinogen Ur Leukocyte Esterase Urine RBC (Auto) Urine Microscopic WBC Ur Squamous Epith Cells Influenza Typ A,B (EIA) Assessment & Plan - Assessment and Plan (Free Text) Assessment: Bilateral lower extremity edema likely 2/2 to RAAS activation from right heart strain caused by pneumonia Pneumonia Hypertension Diabetes Mellitus Renal artery stenosis Peripheral Artery Disease Plan: Bilateral lower extremity edema likely 2/2 to RAAS activation from right heart strain caused by pneumonia Pneumonia Hypertension Diabetes Mellitus Renal artery stenosis Peripheral Artery Disease Lower extremity ultrasound: no sign of DVT EKG: NSR with HR: 71 Troponinx1:<0.0120 BNP: 740 BUN/Cr: 25/1.7. at baseline creatinine Lower extremity edema likely 2/2 to RAAS activation vs. CKD. Will continue to treat the underlying problem and diuresis with lasix. Medications: aliskirin 300 mg daily held amlodipine 10 mg daily lipitor 80 mg daily zetia 10 mg daily lasix 40 mg daily glucotrol 5 mg daily levemir 50 U HS lispro cozaar 100 mg daily aldactone 25 mg daily - Date & Time Date: 02/13/19 Time: 18:41
[2019-02-13] MEDS: Ciprofloxacin 400mg/200ml D5W 400 MG/200 ML BAG IVPB SCH (21:40)
[2019-02-13] MEDS: Insulin Detemir 100 Units/ml Inj SC SCH (21:41)
[2019-02-14] MEDS: MethylPREDNISolone 40 mg Vial IVP SCH ×4 (00:27→21:16)
[2019-02-14] MEDS: Piperacillin/Tazobact 3.375 GM in Sodium Chloride 0.9% 100 ML IVPB SCH ×3 (00:28→16:51)
[2019-02-14] MEDS: Albuterol-Ipratrop 3 mg / 0.5 (3 ml) UD INH SCH ×3 (01:02→13:32)
[2019-02-14 05:26] LABS: HEMOGLOBIN 8.7 g/dL (12.0-16.0); MEAN CELL VOLUME 83.6 fl (81.0-99.0); MEAN CORPUSCULAR HEMOGLOBIN 28.2 pg (27.0-31.0); MEAN CORPUSCULAR HGB CONC 33.7 g/dL (33.0-37.0); RBC 3.08 Mil/uL (3.80-5.20); RED CELL DISTRIBUTION WIDTH 15.3 % (11.5-14.5); WHITE BLOOD COUNT 7.8 K/uL (4.8-10.8)
[2019-02-14 05:45] LABS: ALB/GLOB RATIO 1.1 (1.0-2.1); ALBUMIN 3.7 g/dL (3.5-5.0); CALCIUM 8.6 mg/dL (8.4-10.2)
[2019-02-14] MEDS: Insulin Lispro (humaLOG) 100 Units/ml Inj SC SCH ×7 (06:33→23:47)
--- NOTE | 2019-02-14 08:12 | CP.PCM.PN ---
Subjective - Date & Time of Evaluation Date of Evaluation: 02/14/19 Time of Evaluation: 08:12 - Subjective Subjective: Patient seen and examined today at bedside reports feeling better, c/o cough but no sob, LE edema much improved, no acute overnight events. Otherwise she denies fever, chills, CP or abd pain. Objective - Vital Signs/Intake and Output Vital Signs (last 24 hours): Temp Pulse Resp BP Pulse Ox 97.3 F L 76 18 143/63 96 02/14/19 05:35 02/14/19 05:35 02/14/19 05:35 02/14/19 05:35 02/14/19 05:35 - Medications Medications: Current Medications Acetaminophen (Tylenol 650mg/20.3ml Solution Ud) 1,000 mg PO Q6 PRN PRN Reason: FEVER OR PAIN Acetaminophen (Tylenol 325mg Tab) 650 mg PO Q6 PRN PRN Reason: Pain, moderate (4-7) Last Admin: 02/13/19 06:37 Dose: 650 mg Albuterol/Ipratropium (Duoneb 3 Mg/0.5 Mg (3 Ml) Ud) 3 ml INH RQ6 NANDO Stop: 02/14/19 17:00 Last Admin: 02/14/19 07:48 Dose: 3 ml Amitriptyline HCl (Elavil) 25 mg PO HS [facility] Last Admin: 02/13/19 21:40 Dose: 25 mg Amlodipine Besylate (Norvasc) 10 mg PO DAILY [facility] Last Admin: 02/13/19 09:40 Dose: 10 mg Atorvastatin Calcium (Lipitor) 80 mg PO DAILY [facility] Last Admin: 02/13/19 09:42 Dose: 80 mg Benzocaine/Menthol (Cepacol Sore Throat) 1 katy PO Q2 PRN PRN Reason: Sore Throat Last Admin: 02/13/19 09:53 Dose: 1 katy Cholecalciferol (Vitamin D) 1,000 intlu PO DAILY [facility] Last Admin: 02/13/19 12:31 Dose: 1,000 intlu Dextrose (Dextrose 50% Inj) 0 ml IV STAT PRN; Protocol PRN Reason: Hypoglycemia Protocol Dextrose (Glutose 15) 0 gm PO ONCE PRN; Protocol PRN Reason: Hypoglycemia Protocol Ezetimibe (Zetia) 10 mg PO DAILY [facility] Last Admin: 02/13/19 09:41 Dose: 10 mg Fluticasone Propionate (Flonase) 1 spr SONIA BID [facility] Last Admin: 02/13/19 17:08 Dose: 1 spr Furosemide (Lasix) 40 mg PO DAILY [facility] Last Admin: 02/13/19 09:42 Dose: 40 mg Gabapentin (Neurontin) 1,200 mg PO TID [facility] Last Admin: 02/13/19 17:11 Dose: 1,200 mg Glipizide (Glucotrol) 5 mg PO DAILY [facility] Last Admin: 02/13/19 09:43 Dose: 5 mg Glucagon (Glucagen Diagnostic Kit) 0 mg IM STAT PRN; Protocol PRN Reason: Hypoglycemia Protocol Guaifenesin/Dextromethorphan (Robitussin Dm) 10 ml PO Q4 PRN PRN Reason: Cough Last Admin: 02/13/19 12:06 Dose: 10 ml Piperacillin Sod/Tazobactam (Sod 3.375 gm/ Sodium Chloride) 100 mls @ 100 mls/hr IVPB Q8H [facility]; Protocol Last Admin: 02/14/19 00:28 Dose: 100 mls/hr Vancomycin HCl 1 gm/ Sodium (Chloride) 250 mls @ 166.667 mls/hr IVPB DAILY [facility]; Protocol Ciprofloxacin (Cipro 400mg/200ml Dsw) 400 mg in 200 mls @ 200 mls/hr IVPB Q12 [facility]; Protocol Last Admin: 02/13/19 21:40 Dose: 200 mls/hr Insulin Detemir (Levemir) 50 units SC HS [facility] Last Admin: 02/13/19 21:41 Dose: 50 units Insulin Human Lispro (Humalog) 18 units SC TID [facility] Last Admin: 02/13/19 17:10 Dose: 18 u Insulin Human Lispro (Humalog) 0 units SC ACHS [facility]; Protocol Last Admin: 02/14/19 06:33 Dose: 10 u Losartan Potassium (Cozaar) 100 mg PO DAILY [facility] Last Admin: 02/13/19 09:43 Dose: 100 mg Methylprednisolone (Solu-Medrol) 30 mg IVP Q8H [facility] Last Admin: 02/14/19 06:34 Dose: 30 mg Ondansetron HCl (Zofran Inj) 4 mg IVP Q6 PRN PRN Reason: Nausea/Vomiting Spironolactone (Aldactone) 25 mg PO DAILY [facility] Last Admin: 02/13/19 09:56 Dose: 25 mg Tramadol HCl (Ultram) 50 mg PO TID [facility] Vitamin B Complex/Vit C/Folic Acid (Nephro-Briseida) 1 tab PO DAILY [facility] Last Admin: 02/13/19 09:41 Dose: 1 tab - Labs Labs: 02/14/19 04:31 02/14/19 04:31 - Constitutional Appears: No Acute Distress - Head Exam Head Exam: NORMAL INSPECTION - Respiratory Exam Respiratory Exam: Decreased Breath Sounds, Rales (scatered in right lower lung ). absent: Accessory Muscle Use, Rhonchi, Wheezes - Cardiovascular Exam Cardiovascular Exam: REGULAR RHYTHM, +S1, +S2. absent: Tachycardia - GI/Abdominal Exam GI & Abdominal Exam: Soft, Normal Bowel Sounds. absent: Distended - Extremities Exam Extremities Exam: absent: Calf Tenderness Additional comments: b/l LE edema much improved, + venous stasis skin changes, no tenderness. - Neurological Exam Neurological Exam: Alert, Awake, CN II-XII Intact, Oriented x3 - Skin Skin Exam: Dry, Warm Assessment and Plan - Assessment and Plan (Free Text) Assessment: 73 y/o F with PMH of HTN, CKD stage 3B, IDDM, renal artery stenosis, s/p stent in Jul, peripheral arterial disease, and recent SAH 3/ admitted to [facility] for evaluation and treatment of COPD exacerbation/CHF exacerbation and Hospital Acq Pneumonia. Plan: Hospital-Acquired Pneumonia (HAP) - CT chest: posterior RLL pneumonia, mild small pleural effusion - Vanco, Zosyn and Cipro IV. - Robittusin PRN - Duonebs Q4 RTC - O2 via NC at 2 lpm - pulmonary on board - follow up cultures Dyspnea/CHF exacerbation - improving - Consult Pulmonary, f/u recommendations - Consult Cardio, f/u recommendations - taper Solumedrol 30mg Q12H - C/w Duoneb NANDO Q4H - C/w daily Lasix 40mg - daily I&O Lower Extremities Pain/Edema - U/S LEs: No DVT - Consult Vascular Dr. Romano, f/u recs - Lasix 40mg daily - pain management - I&O CKD - stable - Avoid nephrotoxic medications or use with caution - Continue monitoring - avoid fluid overload/IVF Anemia of chronic disease - stable - monitor labs Insulin dependent diabetes mellitus II with hyperglycemia - likely 2/2 to steroid - c/w Lantus 50 units qhs, Humalog 18 units TID. - c/w Accuchecks and sliding scale insulin - Hypoglycemia protocol PAD with neuropathy - on statin , diabetic control and Gabapentin - Tramadol PRN for pain - will resume plavix and ASA as pt had SAH more than 1 week ago and there is no active bleeding. Hypertension - Chronic, in the high side - c/w home meds - monitor DVT prophylaxis -SCDs - will resume plavix Code status -full code Plan discussed with Dr. Celia Delgado PGY 2
[2019-02-14] MEDS: Multivitamin Vitamin B Complex (Nephro-Vite) Tab PO SCH (09:21)
[2019-02-14] MEDS: Cholecalciferol 1,000 INTLU TAB PO SCH (09:26)
[2019-02-14] MEDS: guaiFENesin DM 200 mg-20 mg/10 ml UD PO PRN (09:28)
[2019-02-14] MEDS: Ciprofloxacin 400mg/200ml D5W 400 MG/200 ML BAG IVPB SCH ×2 (09:38→21:19)
[2019-02-14] MEDS ORDERED: Insulin Lispro (humaLOG) 100 Units/ml Inj SC ONE (11:02)
[2019-02-14] MEDS: Benzocaine/Menthol (Cepacol) Lozenge PO PRN (11:11)
[2019-02-14] MEDS ORDERED: Alum-Mag Hydrox-Simethicone Susp (30 mL) PO STA (13:30)
[2019-02-14] MEDS: Pantoprazole 40 mg EC Tab PO SCH (13:52)
--- NOTE | 2019-02-14 14:22 | CP.PCM.PN ---
Subjective - Date & Time of Evaluation Date of Evaluation: 02/14/19 Time of Evaluation: 11:40 - Subjective Subjective: F/U PNA Breathing better, no SOB with O2, c/o of sore throat after eating and paroxysmal cough, no bringing up any phlegm. Objective - Vital Signs/Intake and Output Vital Signs (last 24 hours): Temp Pulse Resp BP Pulse Ox 97.7 F 87 18 169/67 H 94 L 02/14/19 12:00 02/14/19 12:00 02/14/19 12:00 02/14/19 12:00 02/14/19 12:00 - Medications Medications: Current Medications Acetaminophen (Tylenol 650mg/20.3ml Solution Ud) 1,000 mg PO Q6 PRN PRN Reason: FEVER OR PAIN Acetaminophen (Tylenol 325mg Tab) 650 mg PO Q6 PRN PRN Reason: Pain, moderate (4-7) Last Admin: 02/13/19 06:37 Dose: 650 mg Al Hydrox/Mg Hydrox/Simethicone (Maalox Plus 30 Ml) 30 ml PO Q4 PRN PRN Reason: Indigestion / Heartburn Albuterol/Ipratropium (Duoneb 3 Mg/0.5 Mg (3 Ml) Ud) 3 ml INH RQ6 NANDO Stop: 02/14/19 17:00 Last Admin: 02/14/19 13:32 Dose: 3 ml Amitriptyline HCl (Elavil) 25 mg PO HS [facility] Last Admin: 02/13/19 21:40 Dose: 25 mg Amlodipine Besylate (Norvasc) 10 mg PO DAILY [facility] Last Admin: 02/14/19 09:24 Dose: 10 mg Aspirin (Aspirin Chewable) 81 mg PO DAILY [facility] Last Admin: 02/14/19 11:11 Dose: 81 mg Atorvastatin Calcium (Lipitor) 80 mg PO DAILY [facility] Last Admin: 02/14/19 09:24 Dose: 80 mg Benzocaine/Menthol (Cepacol Sore Throat) 1 katy PO Q2 PRN PRN Reason: Sore Throat Last Admin: 02/14/19 11:11 Dose: 1 katy Benzonatate (Tessalon Perles) 100 mg PO Q8 PRN PRN Reason: Cough Last Admin: 02/14/19 13:11 Dose: 100 mg Cholecalciferol (Vitamin D) 1,000 intlu PO DAILY [facility] Last Admin: 02/14/19 09:26 Dose: 1,000 intlu Clopidogrel Bisulfate (Plavix) 75 mg PO DAILY [facility] Last Admin: 02/14/19 11:13 Dose: 75 mg Dextrose (Dextrose 50% Inj) 0 ml IV STAT PRN; Protocol PRN Reason: Hypoglycemia Protocol Dextrose (Glutose 15) 0 gm PO ONCE PRN; Protocol PRN Reason: Hypoglycemia Protocol Ezetimibe (Zetia) 10 mg PO DAILY [facility] Last Admin: 02/14/19 09:26 Dose: 10 mg Fluticasone Propionate (Flonase) 1 spr SONIA BID [facility] Last Admin: 02/14/19 09:22 Dose: 1 spr Furosemide (Lasix) 40 mg PO DAILY [facility] Last Admin: 02/14/19 09:21 Dose: 40 mg Gabapentin (Neurontin) 1,200 mg PO TID [facility] Last Admin: 02/14/19 13:08 Dose: 1,200 mg Glipizide (Glucotrol) 5 mg PO DAILY [facility] Last Admin: 02/14/19 09:22 Dose: 5 mg Glucagon (Glucagen Diagnostic Kit) 0 mg IM STAT PRN; Protocol PRN Reason: Hypoglycemia Protocol Guaifenesin/Dextromethorphan (Robitussin Dm) 10 ml PO Q4 PRN PRN Reason: Cough Last Admin: 02/14/19 09:28 Dose: 10 ml Piperacillin Sod/Tazobactam (Sod 3.375 gm/ Sodium Chloride) 100 mls @ 100 mls/hr IVPB Q8H [facility]; Protocol Last Admin: 02/14/19 09:34 Dose: 100 mls/hr Vancomycin HCl 1 gm/ Sodium (Chloride) 250 mls @ 166.667 mls/hr IVPB DAILY [facility]; Protocol Last Admin: 02/14/19 09:28 Dose: 166.667 mls/hr Ciprofloxacin (Cipro 400mg/200ml Dsw) 400 mg in 200 mls @ 200 mls/hr IVPB Q12 [facility]; Protocol Last Admin: 02/14/19 09:38 Dose: 200 mls/hr Insulin Detemir (Levemir) 50 units SC HS [facility] Last Admin: 02/13/19 21:41 Dose: 50 units Insulin Human Lispro (Humalog) 18 units SC TID [facility] Last Admin: 02/14/19 13:07 Dose: 18 units Insulin Human Lispro (Humalog) 0 units SC ACHS [facility]; Protocol Last Admin: 02/14/19 11:15 Dose: 10 units Losartan Potassium (Cozaar) 100 mg PO DAILY [facility] Last Admin: 02/14/19 09:25 Dose: 100 mg Methylprednisolone (Solu-Medrol) 30 mg IVP Q12H [facility] Last Admin: 02/14/19 11:28 Dose: 30 mg Ondansetron HCl (Zofran Inj) 4 mg IVP Q6 PRN PRN Reason: Nausea/Vomiting Pantoprazole Sodium (Protonix Ec Tab) 40 mg PO DAILY [facility] Last Admin: 02/14/19 13:52 Dose: 40 mg Spironolactone (Aldactone) 25 mg PO DAILY [facility] Last Admin: 02/14/19 09:25 Dose: 25 mg Tramadol HCl (Ultram) 50 mg PO TID [facility] Vitamin B Complex/Vit C/Folic Acid (Nephro-Briseida) 1 tab PO DAILY [facility] Last Admin: 02/14/19 09:21 Dose: 1 tab - Labs Labs: 02/14/19 04:31 02/14/19 04:31 - Constitutional Appears: No Acute Distress - Head Exam Head Exam: NORMAL INSPECTION - Eye Exam Eye Exam: PERRL - ENT Exam ENT Exam: Normal Exam - Neck Exam Neck Exam: Normal Inspection - Respiratory Exam Respiratory Exam: Decreased Breath Sounds (at bases), Rhonchi (scattered), Wheezes (scattered) Additional comments: Few crackles R base. - Cardiovascular Exam Cardiovascular Exam: REGULAR RHYTHM - GI/Abdominal Exam GI & Abdominal Exam: Soft, Normal Bowel Sounds - Extremities Exam Additional comments: Edema L/E, chronic legs venous stasis changes BLE - Neurological Exam Neurological Exam: Alert, Oriented x3 Additional comments: Awake at times/restless. - Psychiatric Exam Psychiatric exam: Normal Mood - Skin Skin Exam: Warm Assessment and Plan (1) RLL pneumonia Status: Acute (2) COPD exacerbation Status: Chronic - Assessment and Plan (Free Text) Plan: Continue with Cepacol, Vanco, Zosyn, Cipro, Flonase and rest of Tx.
--- NOTE | 2019-02-14 14:37 | CT ---
Date of service: 02/13/2019 PROCEDURE: CT Chest without contrast HISTORY: Pneumonia COMPARISON: None available. TECHNIQUE: Contiguous axial images were obtained through the chest without intravenous contrast enhancement. Sagittal and coronal reconstructions were performed. Radiation dose: Total exam DLP = 595.12 mGy-cm. This CT exam was performed using one or more of the following dose reduction techniques: Automated exposure control, adjustment of the mA and/or kV according to patient size, and/or use of iterative reconstruction technique. FINDINGS: LUNGS: A tiny calcified granuloma seen the right apex. Compressive atelectasis is favored over consolidation of the right lower lobe related to a small right pleural effusion. No left-sided infiltrate identified. Central airways appear clear. Moderate emphysematous changes are identified at the bilateral upper lobes. Restrained motion generate artifacts limiting interpretation 8 MEDIASTINUM: Normal sized heart. Main pulmonary artery is dilated to 3.7 cm suspicious for pulmonary artery hypertension. Clinically correlate further. Mild mediastinal lymphadenopathy is appreciate including inferior paratracheal lymph node measuring 1.9 x 1.1 cm and a nearly identical size subcarinal lymph node as well. No gross lymphadenopathy nevertheless. Thoracic inlet is remarkable for heterogeneity of the thyroid gland with mild prominence of the left lobe thyroid gland. Underlying nodules not excluded. Calcific non aneurysmal atherosclerotic changes are seen related to the thoracic aorta. PLEURA: No pneumothorax bilaterally. No left pleural effusion. Mild right pleural effusion. BONES: No fracture. No destructive lesion. UPPER ABDOMEN: Grossly unremarkable. OTHER FINDINGS: None. IMPRESSION: Mild right pleural effusion exerts compressive atelectasis at the right lower lobe with remaining lung tobias reflecting COPD and right apical granuloma. No left-sided consolidation or infiltrate. Mild mediastinal lymphadenopathy. Dilated main pulmonary artery is suspicious for pulmonary artery hypertension. Clinically correlate further. Heterogeneous density at the thyroid lobe may indicate underlying nodules. Mildly prominent left lobe thyroid noted as well.
--- NOTE | 2019-02-14 16:51 | NM ---
Date of service: 02/14/2019 COMPARISON: Noncontrast chest CT 02/13/2019. TECHNIQUE: 5.0 mCi technetium 99-m DTPA aerosolized. 40.0 mCI technetium 99-m MAA administered intravenously. FINDINGS: VENTILATION COMPONENT: Heterogeneous, with central deposition frequently seen in patients with COPD as in this patient. There are a few ventilation defects identified at the right upper and lower lobes and possibly superior segment right lower lobe. PERFUSION COMPONENT: No perfusion mismatches appreciated mild heterogeneous perfusion identified bilaterally. IMPRESSION: Lowprobability ventilation perfusion scan for pulmonary embolism.
--- NOTE | 2019-02-14 17:39 | CP.PCM.PN ---
Subjective - Date & Time of Evaluation Date of Evaluation: 02/14/19 Time of Evaluation: 17:40 - Subjective Subjective: Jani Orellana, PGY-1, Cardiology Progress Note for Dr. Romano Patient seen and evaluated at bedside. Patient had no acute overnight events. Patient reports shaking after V/Q scan but denies any other symptoms at this time. Objective - Vital Signs/Intake and Output Vital Signs (last 24 hours): Temp Pulse Resp BP Pulse Ox 97.2 F L 77 20 131/64 95 02/14/19 17:00 02/14/19 17:04 02/14/19 17:00 02/14/19 17:04 02/14/19 17:00 - Medications Medications: Current Medications Acetaminophen (Tylenol 650mg/20.3ml Solution Ud) 1,000 mg PO Q6 PRN PRN Reason: FEVER OR PAIN Acetaminophen (Tylenol 325mg Tab) 650 mg PO Q6 PRN PRN Reason: Pain, moderate (4-7) Last Admin: 02/13/19 06:37 Dose: 650 mg Al Hydrox/Mg Hydrox/Simethicone (Maalox Plus 30 Ml) 30 ml PO Q4 PRN PRN Reason: Indigestion / Heartburn Amitriptyline HCl (Elavil) 25 mg PO HS [facility] Last Admin: 02/13/19 21:40 Dose: 25 mg Aspirin (Aspirin Chewable) 81 mg PO DAILY [facility] Last Admin: 02/14/19 11:11 Dose: 81 mg Atorvastatin Calcium (Lipitor) 80 mg PO DAILY [facility] Last Admin: 02/14/19 09:24 Dose: 80 mg Benzocaine/Menthol (Cepacol Sore Throat) 1 katy PO Q2 PRN PRN Reason: Sore Throat Last Admin: 02/14/19 11:11 Dose: 1 katy Benzonatate (Tessalon Perles) 100 mg PO Q8 PRN PRN Reason: Cough Last Admin: 02/14/19 13:11 Dose: 100 mg Cholecalciferol (Vitamin D) 1,000 intlu PO DAILY [facility] Last Admin: 02/14/19 09:26 Dose: 1,000 intlu Clopidogrel Bisulfate (Plavix) 75 mg PO DAILY [facility] Last Admin: 02/14/19 11:13 Dose: 75 mg Codeine Sulfate (Codeine) 15 mg PO Q6 PRN PRN Reason: Cough and congestion Dextrose (Dextrose 50% Inj) 0 ml IV STAT PRN; Protocol PRN Reason: Hypoglycemia Protocol Dextrose (Glutose 15) 0 gm PO ONCE PRN; Protocol PRN Reason: Hypoglycemia Protocol Ezetimibe (Zetia) 10 mg PO DAILY [facility] Last Admin: 02/14/19 09:26 Dose: 10 mg Fluticasone Propionate (Flonase) 1 spr SONIA BID [facility] Last Admin: 02/14/19 09:22 Dose: 1 spr Furosemide (Lasix) 40 mg PO DAILY [facility] Last Admin: 02/14/19 09:21 Dose: 40 mg Gabapentin (Neurontin) 1,200 mg PO TID [facility] Last Admin: 02/14/19 16:52 Dose: 1,200 mg Glipizide (Glucotrol) 5 mg PO DAILY [facility] Last Admin: 02/14/19 09:22 Dose: 5 mg Glucagon (Glucagen Diagnostic Kit) 0 mg IM STAT PRN; Protocol PRN Reason: Hypoglycemia Protocol Guaifenesin/Dextromethorphan (Robitussin Dm) 10 ml PO Q4 PRN PRN Reason: Cough Last Admin: 02/14/19 09:28 Dose: 10 ml Hydralazine HCl (Apresoline) 50 mg PO TID [facility] Last Admin: 02/14/19 17:04 Dose: 50 mg Piperacillin Sod/Tazobactam (Sod 3.375 gm/ Sodium Chloride) 100 mls @ 100 mls/hr IVPB Q8H [facility]; Protocol Last Admin: 02/14/19 16:51 Dose: 100 mls/hr Vancomycin HCl 1 gm/ Sodium (Chloride) 250 mls @ 166.667 mls/hr IVPB DAILY [facility]; Protocol Last Admin: 02/14/19 09:28 Dose: 166.667 mls/hr Ciprofloxacin (Cipro 400mg/200ml Dsw) 400 mg in 200 mls @ 200 mls/hr IVPB Q12 [facility]; Protocol Last Admin: 02/14/19 09:38 Dose: 200 mls/hr Insulin Detemir (Levemir) 53 units SC HS [facility] Insulin Human Lispro (Humalog) 18 units SC TID [facility] Last Admin: 02/14/19 16:53 Dose: 18 units Insulin Human Lispro (Humalog) 0 units SC ACHS [facility]; Protocol Last Admin: 02/14/19 16:54 Dose: 3 units Losartan Potassium (Cozaar) 100 mg PO DAILY [facility] Last Admin: 02/14/19 09:25 Dose: 100 mg Methylprednisolone (Solu-Medrol) 30 mg IVP Q12H [facility] Last Admin: 02/14/19 11:28 Dose: 30 mg Ondansetron HCl (Zofran Inj) 4 mg IVP Q6 PRN PRN Reason: Nausea/Vomiting Pantoprazole Sodium (Protonix Ec Tab) 40 mg PO DAILY [facility] Last Admin: 02/14/19 13:52 Dose: 40 mg Spironolactone (Aldactone) 25 mg PO DAILY [facility] Last Admin: 02/14/19 09:25 Dose: 25 mg Tramadol HCl (Ultram) 50 mg PO TID [facility] Vitamin B Complex/Vit C/Folic Acid (Nephro-Briseida) 1 tab PO DAILY [facility] Last Admin: 02/14/19 09:21 Dose: 1 tab - Labs Labs: 02/14/19 04:31 02/14/19 04:31 - Constitutional Appears: Well, Non-toxic, No Acute Distress - Head Exam Head Exam: ATRAUMATIC, NORMAL INSPECTION, NORMOCEPHALIC - Eye Exam Eye Exam: EOMI, PERRL - ENT Exam ENT Exam: Mucous Membranes Moist - Neck Exam Neck Exam: Full ROM - Respiratory Exam Respiratory Exam: Clear to Ausculation Bilateral, NORMAL BREATHING PATTERN - Cardiovascular Exam Cardiovascular Exam: REGULAR RHYTHM, RRR - GI/Abdominal Exam GI & Abdominal Exam: Soft, Normal Bowel Sounds. absent: Tenderness - Extremities Exam Extremities Exam: Full ROM, Normal Inspection, Pedal Edema (with valladares of bilateral lower extremities) - Neurological Exam Neurological Exam: Alert, Awake, CN II-XII Intact, Oriented x3 - Psychiatric Exam Psychiatric exam: Normal Affect, Normal Mood - Skin Skin Exam: Dry, Intact Additional comments: valladares of bilateral lower extremities Assessment and Plan - Assessment and Plan (Free Text) Assessment: Bilateral lower extremity edema likely 2/2 to RAAS activation from right heart strain caused by pneumonia Pneumonia Hypertension Diabetes Mellitus Renal artery stenosis Peripheral Artery Disease Plan: Bilateral lower extremity edema likely 2/2 to RAAS activation from right heart strain caused by pneumonia Pneumonia Hypertension Diabetes Mellitus Renal artery stenosis Peripheral Artery Disease Lower extremity ultrasound: no sign of DVT V/Q scan: low probability for PE EKG: NSR with HR: 71 Troponinx1:<0.0120 BNP: 740 BUN/Cr: worsened at 38/2.1 Lower extremity edema likely 2/2 to RAAS activation vs. CKD. Will continue to treat the underlying problem and diuresis with lasix. Added codeine for symptomatic relief Stopped amlodipine and added hydralazine Medications: aspirin 81 mg daily plavix 75 mg daily hydralazine 50 mg TID lipitor 80 mg daily zetia 10 mg daily lasix 40 mg daily glucotrol 5 mg daily levemir 50 U HS lispro cozaar 100 mg daily aldactone 25 mg daily
[2019-02-14] MEDS ORDERED: Insulin Detemir 100 Units/ml Inj SC SCH (22:00)
[2019-02-15] MEDS: Piperacillin/Tazobact 3.375 GM in Sodium Chloride 0.9% 100 ML IVPB SCH ×2 (00:08→09:27)
[2019-02-15] MEDS: Insulin Lispro (humaLOG) 100 Units/ml Inj SC SCH ×8 (06:01→22:48)
[2019-02-15 06:17] LABS: HEMOGLOBIN 8.3 g/dL (12.0-16.0); MEAN CELL VOLUME 85.2 fl (81.0-99.0); MEAN CORPUSCULAR HEMOGLOBIN 28.5 pg (27.0-31.0); MEAN CORPUSCULAR HGB CONC 33.5 g/dL (33.0-37.0); RBC 2.9 Mil/uL (3.80-5.20); RED CELL DISTRIBUTION WIDTH 15.3 % (11.5-14.5); WHITE BLOOD COUNT 8.7 K/uL (4.8-10.8)
[2019-02-15 06:55] LABS: CALCIUM 7.9 mg/dL (8.4-10.2)
[2019-02-15] MEDS ORDERED: Insulin Detemir 100 Units/ml Inj SC STA (08:07)
[2019-02-15] MEDS: Pantoprazole 40 mg EC Tab PO SCH (09:23)
[2019-02-15] MEDS: MethylPREDNISolone 40 mg Vial IVP SCH ×2 (09:25→20:33)
[2019-02-15] MEDS: Cholecalciferol 1,000 INTLU TAB PO SCH (09:27)
[2019-02-15] MEDS: Multivitamin Vitamin B Complex (Nephro-Vite) Tab PO SCH (09:29)
--- NOTE | 2019-02-15 09:49 | CP.PCM.PN ---
<Victorino Huber - Last Filed: 02/15/19 16:51> Subjective - Date & Time of Evaluation Date of Evaluation: 02/15/19 Time of Evaluation: 09:48 - Subjective Subjective: Patient seen and examined today at bedside c/o cough throught the night but better, LE edema much improved, no acute overnight events. Denies fever, chills, CP or abd pain. Objective - Vital Signs/Intake and Output Vital Signs (last 24 hours): Temp Pulse Resp BP Pulse Ox 97.6 F 75 20 143/65 94 L 02/15/19 08:33 02/15/19 09:29 02/15/19 08:33 02/15/19 09:30 02/15/19 08:33 - Medications Medications: Current Medications Acetaminophen (Tylenol 650mg/20.3ml Solution Ud) 1,000 mg PO Q6 PRN PRN Reason: FEVER OR PAIN Acetaminophen (Tylenol 325mg Tab) 650 mg PO Q6 PRN PRN Reason: Pain, moderate (4-7) Last Admin: 02/13/19 06:37 Dose: 650 mg Al Hydrox/Mg Hydrox/Simethicone (Maalox Plus 30 Ml) 30 ml PO Q4 PRN PRN Reason: Indigestion / Heartburn Amitriptyline HCl (Elavil) 25 mg PO HS [facility] [place] Last Admin: 02/14/19 21:16 Dose: 25 mg Aspirin (Aspirin Chewable) 81 mg PO DAILY [facility] [place] Last Admin: 02/15/19 09:23 Dose: 81 mg Atorvastatin Calcium (Lipitor) 80 mg PO DAILY [facility] [place] Last Admin: 02/15/19 09:31 Dose: 80 mg Benzocaine/Menthol (Cepacol Sore Throat) 1 katy PO Q2 PRN PRN Reason: Sore Throat Last Admin: 02/14/19 11:11 Dose: 1 katy Benzonatate (Tessalon Perles) 100 mg PO Q8 PRN PRN Reason: Cough Last Admin: 02/14/19 21:15 Dose: 100 mg Cholecalciferol (Vitamin D) 1,000 intlu PO DAILY [facility] [place] Last Admin: 02/15/19 09:27 Dose: 1,000 intlu Clopidogrel Bisulfate (Plavix) 75 mg PO DAILY [facility] [place] Last Admin: 02/15/19 09:33 Dose: 75 mg Codeine Sulfate (Codeine) 15 mg PO Q6 PRN PRN Reason: Cough and congestion Dextrose (Dextrose 50% Inj) 0 ml IV STAT PRN; Protocol PRN Reason: Hypoglycemia Protocol Dextrose (Glutose 15) 0 gm PO ONCE PRN; Protocol PRN Reason: Hypoglycemia Protocol Ezetimibe (Zetia) 10 mg PO DAILY [facility] [place] Last Admin: 02/15/19 09:27 Dose: 10 mg Fluticasone Propionate (Flonase) 1 spr SONIA BID [facility] [place] Last Admin: 02/15/19 09:23 Dose: 1 spr Furosemide (Lasix) 40 mg PO DAILY [facility] [place] Last Admin: 02/15/19 09:30 Dose: 40 mg Gabapentin (Neurontin) 1,200 mg PO TID [facility] [place] Last Admin: 02/15/19 09:26 Dose: 1,200 mg Glipizide (Glucotrol) 5 mg PO DAILY [facility] [place] Last Admin: 02/15/19 09:32 Dose: 5 mg Glucagon (Glucagen Diagnostic Kit) 0 mg IM STAT PRN; Protocol PRN Reason: Hypoglycemia Protocol Guaifenesin/Dextromethorphan (Robitussin Dm) 10 ml PO Q4 PRN PRN Reason: Cough Last Admin: 02/14/19 09:28 Dose: 10 ml Hydralazine HCl (Apresoline) 50 mg PO TID [facility] [place] Last Admin: 02/14/19 17:04 Dose: 50 mg Vancomycin HCl 1 gm/ Sodium (Chloride) 250 mls @ 166.667 mls/hr IVPB DAILY [facility] [place]; Protocol Last Admin: 02/14/19 09:28 Dose: 166.667 mls/hr Ciprofloxacin (Cipro 400mg/200ml Dsw) 400 mg in 200 mls @ 200 mls/hr IVPB Q12 [facility]; Protocol Last Admin: 02/14/19 21:19 Dose: 200 mls/hr Piperacillin Sod/Tazobactam (Sod 2.25 gm/ Sodium Chloride) 100 mls @ 100 mls/hr IVPB Q8H [facility] [place]; Protocol Insulin Detemir (Levemir) 53 units SC HS [facility] [place] Last Admin: 02/14/19 23:46 Dose: 53 units Insulin Human Lispro (Humalog) 18 units SC TID [facility] [place] Last Admin: 02/15/19 09:31 Dose: 18 units Insulin Human Lispro (Humalog) 0 units SC ACHS [facility] [place]; Protocol Last Admin: 02/15/19 06:55 Dose: Not Given Losartan Potassium (Cozaar) 100 mg PO DAILY [facility] [place] Last Admin: 02/15/19 09:29 Dose: 100 mg Methylprednisolone (Solu-Medrol) 20 mg IVP Q12H [facility] [place] Last Admin: 02/15/19 09:25 Dose: 20 mg Ondansetron HCl (Zofran Inj) 4 mg IVP Q6 PRN PRN Reason: Nausea/Vomiting Pantoprazole Sodium (Protonix Ec Tab) 40 mg PO DAILY [facility] [place] Last Admin: 02/15/19 09:23 Dose: 40 mg Spironolactone (Aldactone) 25 mg PO DAILY [facility] [place] Last Admin: 02/15/19 09:22 Dose: 25 mg Tramadol HCl (Ultram) 50 mg PO TID [facility] [place] Vitamin B Complex/Vit C/Folic Acid (Nephro-Briseida) 1 tab PO DAILY [facility] [place] Last Admin: 02/15/19 09:29 Dose: 1 tab - Labs Labs: 02/15/19 04:20 02/15/19 04:20 - Constitutional Appears: No Acute Distress - Head Exam Head Exam: NORMAL INSPECTION - Respiratory Exam Respiratory Exam: Rales (bibasilar crackles), NORMAL BREATHING PATTERN. absent: Accessory Muscle Use, Rhonchi, Wheezes - Cardiovascular Exam Cardiovascular Exam: REGULAR RHYTHM, +S1, +S2. absent: Tachycardia - GI/Abdominal Exam GI & Abdominal Exam: Soft, Normal Bowel Sounds. absent: Tenderness - Extremities Exam Extremities Exam: absent: Calf Tenderness Additional comments: b/l LE edema much improved, + venous stasis skin changes, no tenderness. - Neurological Exam Neurological Exam: Alert, CN II-XII Intact, Oriented x3 - Skin Skin Exam: Dry, Warm Assessment and Plan - Assessment and Plan (Free Text) Assessment: 73 y/o F with PMH of HTN, CKD stage 3B, IDDM, renal artery stenosis, s/p stent in Jul, peripheral arterial disease, and recent SAH 3/5 admitted to [facility] for evaluation and treatment of COPD exacerbation/CHF exacerbation and Hospital Acq Pneumonia. Plan: Hospital-Acquired Pneumonia (HAP) - CT chest: posterior RLL pneumonia, mild small pleural effusion - Vanco, Zosyn and Cipro IV, (day 2) will need 1 more week - Robittusin PRN - Duonebs Q4 RTC - O2 via NC at 2 lpm - pulmonary on board - Blood cultures no growths in 48 hrs Dyspnea/CHF exacerbation - improving - V/Q scan: low probability for PE - Consult Pulmonary, f/u recommendations - Consult Cardio, f/u recommendations - taper Solumedrol 20 mg Q12H - C/w Duoneb [facility] Q4H - C/w daily Lasix 40mg - daily I&O Lower Extremities Pain/Edema - U/S LEs: No DVT - Consult Vascular Dr. 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 Hypertension - Chronic, in the high side - started on Hydralazyne - monitor DVT prophylaxis - SCDs - will resume plavix Code status -full code Dispo: d/c to [facility] ([facility]) for IV antibiotics and PT Pending authorization Plan discussed with Dr Sprague. Sandy PGY 2 <Dottie Sprague - Last Filed: 02/15/19 17:46> Objective - Vital Signs/Intake and Output Vital Signs (last 24 hours): Temp Pulse Resp BP Pulse Ox 98.1 F 72 18 144/66 94 L 02/15/19 15:54 02/15/19 16:49 02/15/19 15:54 02/15/19 16:49 02/15/19 15:54 - Medications Medications: Current Medications Acetaminophen (Tylenol 650mg/20.3ml Solution Ud) 1,000 mg PO Q6 PRN PRN Reason: FEVER OR PAIN Acetaminophen (Tylenol 325mg Tab) 650 mg PO Q6 PRN PRN Reason: Pain, moderate (4-7) Last Admin: 02/13/19 06:37 Dose: 650 mg Al Hydrox/Mg Hydrox/Simethicone (Maalox Plus 30 Ml) 30 ml PO Q4 PRN PRN Reason: Indigestion / Heartburn Amitriptyline HCl (Elavil) 25 mg PO HS [facility] Last Admin: 02/14/19 21:16 Dose: 25 mg Aspirin (Aspirin Chewable) 81 mg PO DAILY [facility] [place] Last Admin: 02/15/19 09:23 Dose: 81 mg Atorvastatin Calcium (Lipitor) 80 mg PO DAILY [facility] Last Admin: 02/15/19 09:31 Dose: 80 mg Benzocaine/Menthol (Cepacol Sore Throat) 1 katy PO Q2 PRN PRN Reason: Sore Throat Last Admin: 02/14/19 11:11 Dose: 1 katy Benzonatate (Tessalon Perles) 100 mg PO Q8 PRN PRN Reason: Cough Last Admin: 02/14/19 21:15 Dose: 100 mg Cholecalciferol (Vitamin D) 1,000 intlu PO DAILY [facility] [place] Last Admin: 02/15/19 09:27 Dose: 1,000 intlu Clopidogrel Bisulfate (Plavix) 75 mg PO DAILY [facility] [place] Last Admin: 02/15/19 09:33 Dose: 75 mg Codeine Sulfate (Codeine) 15 mg PO Q6 PRN PRN Reason: Cough and congestion Dextrose (Dextrose 50% Inj) 0 ml IV STAT PRN; Protocol PRN Reason: Hypoglycemia Protocol Dextrose (Glutose 15) 0 gm PO ONCE PRN; Protocol PRN Reason: Hypoglycemia Protocol Ezetimibe (Zetia) 10 mg PO DAILY [facility] [place] Last Admin: 02/15/19 09:27 Dose: 10 mg Fluticasone Propionate (Flonase) 1 spr SONIA BID [facility] Last Admin: 02/15/19 16:50 Dose: 1 spr Gabapentin (Neurontin) 1,200 mg PO TID [facility] Last Admin: 02/15/19 16:51 Dose: 1,200 mg Glipizide (Glucotrol) 5 mg PO DAILY [facility] [place] Last Admin: 02/15/19 09:32 Dose: 5 mg Glucagon (Glucagen Diagnostic Kit) 0 mg IM STAT PRN; Protocol PRN Reason: Hypoglycemia Protocol Guaifenesin/Dextromethorphan (Robitussin Dm) 10 ml PO Q4 PRN PRN Reason: Cough Last Admin: 02/14/19 09:28 Dose: 10 ml Hydralazine HCl (Apresoline) 50 mg PO TID [facility] [place] Last Admin: 02/15/19 16:49 Dose: 50 mg Piperacillin Sod/Tazobactam (Sod 2.25 gm/ Sodium Chloride) 100 mls @ 100 mls/hr IVPB Q8H [facility] [place]; Protocol Last Admin: 02/15/19 17:18 Dose: 100 mls/hr Vancomycin HCl 1 gm/ Sodium (Chloride) 250 mls @ 166.667 mls/hr IVPB DAILY [facility] [place]; Protocol Last Admin: 02/15/19 12:45 Dose: 166.667 mls/hr Sodium Chloride (Sodium Chloride 0.9%) 1,000 mls @ 75 mls/hr IV .[id number] [facility] [place] Stop: 02/16/19 15:18 Last Admin: 02/15/19 16:44 Dose: 75 mls/hr Ciprofloxacin (Cipro 400mg/200ml Dsw) 400 mg in 200 mls @ 200 mls/hr IVPB DAILY [facility] [place]; Protocol Insulin Detemir (Levemir) 53 units SC HS [facility] Last Admin: 02/14/19 23:46 Dose: 53 units Insulin Human Lispro (Humalog) 18 units SC TID [facility] [place] Last Admin: 02/15/19 16:48 Dose: 18 units Insulin Human Lispro (Humalog) 0 units SC ACHS [facility] [place]; Protocol Last Admin: 02/15/19 16:45 Dose: 8 units Losartan Potassium (Cozaar) 100 mg PO DAILY [facility] [place] Last Admin: 02/15/19 09:29 Dose: 100 mg Methylprednisolone (Solu-Medrol) 20 mg IVP Q12H [facility] [place] Last Admin: 02/15/19 09:25 Dose: 20 mg Ondansetron HCl (Zofran Inj) 4 mg IVP Q6 PRN PRN Reason: Nausea/Vomiting Pantoprazole Sodium (Protonix Ec Tab) 40 mg PO DAILY [facility] [place] Last Admin: 02/15/19 09:23 Dose: 40 mg Tramadol HCl (Ultram) 50 mg PO TID [facility] [place] Vitamin B Complex/Vit C/Folic Acid (Nephro-Briseida) 1 tab PO DAILY [facility] [place] Last Admin: 02/15/19 09:29 Dose: 1 tab - Labs Labs: 02/15/19 04:20 02/15/19 04:20 Attending/Attestation - Attestation I have personally seen and examined this patient.: Yes I have fully participated in the care of the patient.: Yes I have reviewed all pertinent clinical information, including history, physical exam and plan: Yes Notes (Text): HCAP ( pt recently in [facility]) Acute CHF , diastolic dysfunction COPD exacerbation DM type II with hyperglycemia MELE on CKD Stage IV cont IV Zosyn, Vanco and Cipro ( renal dose) Pulm and Cardio consulted cont IV Solumedrol, Duoneb Increase Levemir dose to 58 units cont TID Lispro and Glipizide Physical therapy Plan to d/c pt to [facility] to cont IV antibiotics for 6 more days
--- NOTE | 2019-02-15 10:58 | CP.PCM.PN ---
Subjective - Date & Time of Evaluation Date of Evaluation: 02/15/19 Time of Evaluation: 10:56 - Subjective Subjective: Jani Orellana, PGY-1, Cardiology Progress Note for Dr. Romano Patient seen and evaluated at bedside. Patient had no acute overnight events. Patient reports improvement in tremors today. Patient continues to have chest pain with cough. Patient denies shortness of breath, left arm pain, jaw pain, diaphoresis, nausea, dizziness. Objective - Vital Signs/Intake and Output Vital Signs (last 24 hours): Temp Pulse Resp BP Pulse Ox 97.6 F 75 20 143/65 94 L 02/15/19 08:33 02/15/19 10:00 02/15/19 08:33 02/15/19 10:00 02/15/19 08:33 - Medications Medications: Current Medications Acetaminophen (Tylenol 650mg/20.3ml Solution Ud) 1,000 mg PO Q6 PRN PRN Reason: FEVER OR PAIN Acetaminophen (Tylenol 325mg Tab) 650 mg PO Q6 PRN PRN Reason: Pain, moderate (4-7) Last Admin: 02/13/19 06:37 Dose: 650 mg Al Hydrox/Mg Hydrox/Simethicone (Maalox Plus 30 Ml) 30 ml PO Q4 PRN PRN Reason: Indigestion / Heartburn Amitriptyline HCl (Elavil) 25 mg PO HS [facility] Last Admin: 02/14/19 21:16 Dose: 25 mg Aspirin (Aspirin Chewable) 81 mg PO DAILY [facility] Last Admin: 02/15/19 09:23 Dose: 81 mg Atorvastatin Calcium (Lipitor) 80 mg PO DAILY [facility] Last Admin: 02/15/19 09:31 Dose: 80 mg Benzocaine/Menthol (Cepacol Sore Throat) 1 katy PO Q2 PRN PRN Reason: Sore Throat Last Admin: 02/14/19 11:11 Dose: 1 katy Benzonatate (Tessalon Perles) 100 mg PO Q8 PRN PRN Reason: Cough Last Admin: 02/14/19 21:15 Dose: 100 mg Cholecalciferol (Vitamin D) 1,000 intlu PO DAILY [facility] Last Admin: 02/15/19 09:27 Dose: 1,000 intlu Clopidogrel Bisulfate (Plavix) 75 mg PO DAILY [facility] Last Admin: 02/15/19 09:33 Dose: 75 mg Codeine Sulfate (Codeine) 15 mg PO Q6 PRN PRN Reason: Cough and congestion Dextrose (Dextrose 50% Inj) 0 ml IV STAT PRN; Protocol PRN Reason: Hypoglycemia Protocol Dextrose (Glutose 15) 0 gm PO ONCE PRN; Protocol PRN Reason: Hypoglycemia Protocol Ezetimibe (Zetia) 10 mg PO DAILY [facility] Last Admin: 02/15/19 09:27 Dose: 10 mg Fluticasone Propionate (Flonase) 1 spr SONIA BID [facility] Last Admin: 02/15/19 09:23 Dose: 1 spr Furosemide (Lasix) 40 mg PO DAILY [facility] Last Admin: 02/15/19 09:30 Dose: 40 mg Gabapentin (Neurontin) 1,200 mg PO TID [facility] Last Admin: 02/15/19 09:26 Dose: 1,200 mg Glipizide (Glucotrol) 5 mg PO DAILY [facility] Last Admin: 02/15/19 09:32 Dose: 5 mg Glucagon (Glucagen Diagnostic Kit) 0 mg IM STAT PRN; Protocol PRN Reason: Hypoglycemia Protocol Guaifenesin/Dextromethorphan (Robitussin Dm) 10 ml PO Q4 PRN PRN Reason: Cough Last Admin: 02/14/19 09:28 Dose: 10 ml Hydralazine HCl (Apresoline) 50 mg PO TID [facility] Last Admin: 02/15/19 10:00 Dose: 50 mg Ciprofloxacin (Cipro 400mg/200ml Dsw) 400 mg in 200 mls @ 200 mls/hr IVPB Q12 [facility]; Protocol Last Admin: 02/14/19 21:19 Dose: 200 mls/hr Piperacillin Sod/Tazobactam (Sod 2.25 gm/ Sodium Chloride) 100 mls @ 100 mls/hr IVPB Q8H [facility]; Protocol Last Admin: 02/15/19 10:04 Dose: Not Given Vancomycin HCl 1 gm/ Sodium (Chloride) 250 mls @ 166.667 mls/hr IVPB DAILY [facility]; Protocol Insulin Detemir (Levemir) 53 units SC HS [facility] Last Admin: 02/14/19 23:46 Dose: 53 units Insulin Human Lispro (Humalog) 18 units SC TID [facility] Last Admin: 02/15/19 09:31 Dose: 18 units Insulin Human Lispro (Humalog) 0 units SC ACHS [facility]; Protocol Last Admin: 02/15/19 06:55 Dose: Not Given Losartan Potassium (Cozaar) 100 mg PO DAILY [facility] Last Admin: 02/15/19 09:29 Dose: 100 mg Methylprednisolone (Solu-Medrol) 20 mg IVP Q12H [facility] Last Admin: 02/15/19 09:25 Dose: 20 mg Ondansetron HCl (Zofran Inj) 4 mg IVP Q6 PRN PRN Reason: Nausea/Vomiting Pantoprazole Sodium (Protonix Ec Tab) 40 mg PO DAILY [facility] Last Admin: 02/15/19 09:23 Dose: 40 mg Spironolactone (Aldactone) 25 mg PO DAILY [facility] Last Admin: 02/15/19 09:22 Dose: 25 mg Tramadol HCl (Ultram) 50 mg PO TID [facility] Vitamin B Complex/Vit C/Folic Acid (Nephro-Briseida) 1 tab PO DAILY [facility] Last Admin: 02/15/19 09:29 Dose: 1 tab - Labs Labs: 02/15/19 04:20 02/15/19 04:20 - Constitutional Appears: Well, Non-toxic, No Acute Distress - Head Exam Head Exam: ATRAUMATIC, NORMAL INSPECTION, NORMOCEPHALIC - Eye Exam Eye Exam: EOMI, PERRL - ENT Exam ENT Exam: Mucous Membranes Moist - Respiratory Exam Respiratory Exam: NORMAL BREATHING PATTERN. absent: Rales, Rhonchi, Wheezes Additional comments: crackles at bilateral bases - Cardiovascular Exam Cardiovascular Exam: REGULAR RHYTHM, RRR, +S1, +S2 - GI/Abdominal Exam GI & Abdominal Exam: Soft, Normal Bowel Sounds. absent: Tenderness - Extremities Exam Extremities Exam: Full ROM, Pedal Edema (valladares of bilateral lower extremities but improved) - Neurological Exam Neurological Exam: Alert, Awake, CN II-XII Intact, Oriented x3 - Skin Skin Exam: Dry, Intact, Normal Color Assessment and Plan - Assessment and Plan (Free Text) Assessment: Bilateral lower extremity edema likely 2/2 to RAAS activation from right heart strain caused by pneumonia Pneumonia Hypertension Diabetes Mellitus Renal artery stenosis Peripheral Artery Disease Plan: Bilateral lower extremity edema likely 2/2 to RAAS activation from right heart strain caused by pneumonia Pneumonia Hypertension Diabetes Mellitus Renal artery stenosis Peripheral Artery Disease Lower extremity ultrasound: no sign of DVT V/Q scan: low probability for PE EKG: NSR with HR: 71 Troponinx1:<0.0120 BNP: 740 BUN/Cr: worsened at 55/2.3 Lower extremity edema likely 2/2 to RAAS activation vs. CKD. Patient is likely dehydrated as renal function is worsening so started NS at 75 cc/hr, will discontinue lasix and aldactone and hold cozaar at this time. Medications: aspirin 81 mg daily plavix 75 mg daily hydralazine 50 mg TID lipitor 80 mg daily zetia 10 mg daily lasix 40 mg daily glucotrol 5 mg daily levemir 50 U HS lispro cozaar 100 mg daily aldactone 25 mg daily Codeine and tessalone perles for cough
[2019-02-15] MEDS: Ciprofloxacin 400mg/200ml D5W 400 MG/200 ML BAG IVPB SCH (11:24)
--- NOTE | 2019-02-15 14:48 | CP.PCM.PN ---
Subjective - Date & Time of Evaluation Date of Evaluation: 02/15/19 Time of Evaluation: 12:40 - Subjective Subjective: F/U PNA Breathing better, minimal chest congestion, no SOB, dry cough, chest pain with cough Objective - Vital Signs/Intake and Output Vital Signs (last 24 hours): Temp Pulse Resp BP Pulse Ox 97.2 F L 69 20 124/63 98 02/15/19 12:29 02/15/19 12:29 02/15/19 12:29 02/15/19 12:29 02/15/19 12:29 - Medications Medications: Current Medications Acetaminophen (Tylenol 650mg/20.3ml Solution Ud) 1,000 mg PO Q6 PRN PRN Reason: FEVER OR PAIN Acetaminophen (Tylenol 325mg Tab) 650 mg PO Q6 PRN PRN Reason: Pain, moderate (4-7) Last Admin: 02/13/19 06:37 Dose: 650 mg Al Hydrox/Mg Hydrox/Simethicone (Maalox Plus 30 Ml) 30 ml PO Q4 PRN PRN Reason: Indigestion / Heartburn Amitriptyline HCl (Elavil) 25 mg PO HS [facility] Last Admin: 02/14/19 21:16 Dose: 25 mg Aspirin (Aspirin Chewable) 81 mg PO DAILY [facility] Last Admin: 02/15/19 09:23 Dose: 81 mg Atorvastatin Calcium (Lipitor) 80 mg PO DAILY [facility] Last Admin: 02/15/19 09:31 Dose: 80 mg Benzocaine/Menthol (Cepacol Sore Throat) 1 katy PO Q2 PRN PRN Reason: Sore Throat Last Admin: 02/14/19 11:11 Dose: 1 katy Benzonatate (Tessalon Perles) 100 mg PO Q8 PRN PRN Reason: Cough Last Admin: 02/14/19 21:15 Dose: 100 mg Cholecalciferol (Vitamin D) 1,000 intlu PO DAILY [facility] Last Admin: 02/15/19 09:27 Dose: 1,000 intlu Clopidogrel Bisulfate (Plavix) 75 mg PO DAILY [facility] Last Admin: 02/15/19 09:33 Dose: 75 mg Codeine Sulfate (Codeine) 15 mg PO Q6 PRN PRN Reason: Cough and congestion Dextrose (Dextrose 50% Inj) 0 ml IV STAT PRN; Protocol PRN Reason: Hypoglycemia Protocol Dextrose (Glutose 15) 0 gm PO ONCE PRN; Protocol PRN Reason: Hypoglycemia Protocol Ezetimibe (Zetia) 10 mg PO DAILY [facility] Last Admin: 02/15/19 09:27 Dose: 10 mg Fluticasone Propionate (Flonase) 1 spr SONIA BID [facility] Last Admin: 02/15/19 09:23 Dose: 1 spr Furosemide (Lasix) 40 mg PO DAILY [facility] Last Admin: 02/15/19 09:30 Dose: 40 mg Gabapentin (Neurontin) 1,200 mg PO TID [facility] Last Admin: 02/15/19 09:26 Dose: 1,200 mg Glipizide (Glucotrol) 5 mg PO DAILY [facility] Last Admin: 02/15/19 09:32 Dose: 5 mg Glucagon (Glucagen Diagnostic Kit) 0 mg IM STAT PRN; Protocol PRN Reason: Hypoglycemia Protocol Guaifenesin/Dextromethorphan (Robitussin Dm) 10 ml PO Q4 PRN PRN Reason: Cough Last Admin: 02/14/19 09:28 Dose: 10 ml Hydralazine HCl (Apresoline) 50 mg PO TID [facility] Last Admin: 02/15/19 10:00 Dose: 50 mg Ciprofloxacin (Cipro 400mg/200ml Dsw) 400 mg in 200 mls @ 200 mls/hr IVPB Q12 [facility]; Protocol Last Admin: 02/15/19 11:24 Dose: 200 mls/hr Piperacillin Sod/Tazobactam (Sod 2.25 gm/ Sodium Chloride) 100 mls @ 100 mls/hr IVPB Q8H [facility]; Protocol Last Admin: 02/15/19 10:04 Dose: Not Given Vancomycin HCl 1 gm/ Sodium (Chloride) 250 mls @ 166.667 mls/hr IVPB DAILY [facility]; Protocol Last Admin: 02/15/19 12:45 Dose: 166.667 mls/hr Insulin Detemir (Levemir) 53 units SC HS [facility] Last Admin: 02/14/19 23:46 Dose: 53 units Insulin Human Lispro (Humalog) 18 units SC TID [facility] Last Admin: 02/15/19 09:31 Dose: 18 units Insulin Human Lispro (Humalog) 0 units SC ACHS [facility]; Protocol Last Admin: 02/15/19 12:46 Dose: 8 units Losartan Potassium (Cozaar) 100 mg PO DAILY [facility] Last Admin: 02/15/19 09:29 Dose: 100 mg Methylprednisolone (Solu-Medrol) 20 mg IVP Q12H [facility] Last Admin: 02/15/19 09:25 Dose: 20 mg Ondansetron HCl (Zofran Inj) 4 mg IVP Q6 PRN PRN Reason: Nausea/Vomiting Pantoprazole Sodium (Protonix Ec Tab) 40 mg PO DAILY [facility] Last Admin: 02/15/19 09:23 Dose: 40 mg Spironolactone (Aldactone) 25 mg PO DAILY [facility] Last Admin: 02/15/19 09:22 Dose: 25 mg Tramadol HCl (Ultram) 50 mg PO TID [facility] Vitamin B Complex/Vit C/Folic Acid (Nephro-Briseida) 1 tab PO DAILY [facility] Last Admin: 02/15/19 09:29 Dose: 1 tab - Labs Labs: 02/15/19 04:20 02/15/19 04:20 - Constitutional Appears: No Acute Distress - Head Exam Head Exam: NORMAL INSPECTION - Eye Exam Eye Exam: PERRL - ENT Exam ENT Exam: Normal Exam - Neck Exam Neck Exam: Normal Inspection - Respiratory Exam Respiratory Exam: Decreased Breath Sounds (at bases), Rhonchi ( few scattered) - Cardiovascular Exam Cardiovascular Exam: REGULAR RHYTHM - GI/Abdominal Exam GI & Abdominal Exam: Soft, Normal Bowel Sounds - Extremities Exam Additional comments: decreased edema L/E, legs chronic venous stasis changes - Neurological Exam Neurological Exam: Alert, Awake, Oriented x3 Additional comments: restless - Skin Skin Exam: Warm Assessment and Plan (1) RLL pneumonia Status: Acute (2) COPD exacerbation Status: Chronic - Assessment and Plan (Free Text) Plan: Lung V/Q Scan negative for P/E, continue Zosyn, Vanco, taper steroids, monitor Hgb
[2019-02-15] MEDS: Sodium Chloride 0.9% 1,000 ML IV SCH (16:44)
[2019-02-15] MEDS: Alum-Mag Hydrox-Simethicone Susp (30 mL) PO PRN (18:02)
[2019-02-15] MEDS ORDERED: Insulin Detemir 100 Units/ml Inj SC SCH (22:00)
[2019-02-15] MEDS: Insulin Detemir 100 Units/ml Inj SC SCH (22:47)
[2019-02-16] MEDS: guaiFENesin DM 200 mg-20 mg/10 ml UD PO PRN ×3 (00:53→17:25)
[2019-02-16] MEDS: Albuterol-Ipratrop 3 mg / 0.5 (3 ml) UD INH PRN ×2 (01:34→16:33)
[2019-02-16 06:42] LABS: CALCIUM 7.5 mg/dL (8.4-10.2)
[2019-02-16] MEDS: Insulin Lispro (humaLOG) 100 Units/ml Inj SC SCH ×7 (06:42→22:24)
[2019-02-16] MEDS ORDERED: Insulin Detemir 100 Units/ml Inj SC ONE (07:51)
--- NOTE | 2019-02-16 07:55 | CP.PCM.PN ---
Subjective - Date & Time of Evaluation Date of Evaluation: 02/16/19 Time of Evaluation: 07:52 - Subjective Subjective: Jani Orellana, PGY-1, Cardiology Progress Note for Dr. Romano Patient seen and evaluated at bedside. Patient had no acute overnight events. Patient reports abdominal pain with cough but no chest pain. Patient denies shortness of breath, left arm pain, jaw pain, diaphoresis, nausea, dizziness. Objective - Vital Signs/Intake and Output Vital Signs (last 24 hours): Temp Pulse Resp BP Pulse Ox 97.6 F 74 20 152/64 H 98 02/16/19 05:09 02/16/19 05:09 02/16/19 05:09 02/16/19 05:09 02/16/19 05:09 - Medications Medications: Current Medications Acetaminophen (Tylenol 650mg/20.3ml Solution Ud) 1,000 mg PO Q6 PRN PRN Reason: FEVER OR PAIN Acetaminophen (Tylenol 325mg Tab) 650 mg PO Q6 PRN PRN Reason: Pain, moderate (4-7) Last Admin: 02/13/19 06:37 Dose: 650 mg Al Hydrox/Mg Hydrox/Simethicone (Maalox Plus 30 Ml) 30 ml PO Q4 PRN PRN Reason: Indigestion / Heartburn Last Admin: 02/15/19 18:02 Dose: 30 ml Albuterol/Ipratropium (Duoneb 3 Mg/0.5 Mg (3 Ml) Ud) 3 ml INH RQ4 PRN PRN Reason: Shortness of Breath Last Admin: 02/16/19 01:34 Dose: 3 ml Amitriptyline HCl (Elavil) 25 mg PO HS [facility] Last Admin: 02/15/19 22:47 Dose: 25 mg Aspirin (Aspirin Chewable) 81 mg PO DAILY [facility] Last Admin: 02/15/19 09:23 Dose: 81 mg Atorvastatin Calcium (Lipitor) 80 mg PO DAILY [facility] Last Admin: 02/15/19 09:31 Dose: 80 mg Benzocaine/Menthol (Cepacol Sore Throat) 1 katy PO Q2 PRN PRN Reason: Sore Throat Last Admin: 02/14/19 11:11 Dose: 1 katy Benzonatate (Tessalon Perles) 100 mg PO Q8 PRN PRN Reason: Cough Last Admin: 02/14/19 21:15 Dose: 100 mg Cholecalciferol (Vitamin D) 1,000 intlu PO DAILY [facility] Last Admin: 02/15/19 09:27 Dose: 1,000 intlu Clopidogrel Bisulfate (Plavix) 75 mg PO DAILY [facility] Last Admin: 02/15/19 09:33 Dose: 75 mg Codeine Sulfate (Codeine) 15 mg PO Q6 PRN PRN Reason: Cough and congestion Dextrose (Dextrose 50% Inj) 0 ml IV STAT PRN; Protocol PRN Reason: Hypoglycemia Protocol Dextrose (Glutose 15) 0 gm PO ONCE PRN; Protocol PRN Reason: Hypoglycemia Protocol Ezetimibe (Zetia) 10 mg PO DAILY [facility] Last Admin: 02/15/19 09:27 Dose: 10 mg Fluticasone Propionate (Flonase) 1 spr SONIA BID [facility] Last Admin: 02/15/19 16:50 Dose: 1 spr Gabapentin (Neurontin) 1,200 mg PO TID [facility] Last Admin: 02/15/19 16:51 Dose: 1,200 mg Glipizide (Glucotrol) 5 mg PO DAILY [facility] Last Admin: 02/15/19 09:32 Dose: 5 mg Glucagon (Glucagen Diagnostic Kit) 0 mg IM STAT PRN; Protocol PRN Reason: Hypoglycemia Protocol Guaifenesin/Dextromethorphan (Robitussin Dm) 10 ml PO Q4 PRN PRN Reason: Cough Last Admin: 02/16/19 00:53 Dose: 10 ml Hydralazine HCl (Apresoline) 50 mg PO TID [facility] Last Admin: 02/15/19 16:49 Dose: 50 mg Piperacillin Sod/Tazobactam (Sod 2.25 gm/ Sodium Chloride) 100 mls @ 100 mls/hr IVPB Q8H [facility]; Protocol Last Admin: 02/16/19 00:52 Dose: 100 mls/hr Vancomycin HCl 1 gm/ Sodium (Chloride) 250 mls @ 166.667 mls/hr IVPB DAILY [facility]; Protocol Last Admin: 02/15/19 12:45 Dose: 166.667 mls/hr Sodium Chloride (Sodium Chloride 0.9%) 1,000 mls @ 75 mls/hr IV .[id number] [facility] Stop: 02/16/19 15:18 Last Admin: 02/15/19 16:44 Dose: 75 mls/hr Ciprofloxacin (Cipro 400mg/200ml Dsw) 400 mg in 200 mls @ 200 mls/hr IVPB DAILY [facility]; Protocol Insulin Detemir (Levemir) 58 units SC HS [facility] Last Admin: 02/15/19 22:47 Dose: 58 u Insulin Detemir (Levemir) 4 units SC ONCE ONE Stop: 02/16/19 07:52 Insulin Human Lispro (Humalog) 18 units SC TID [facility] Last Admin: 02/15/19 16:48 Dose: 18 units Insulin Human Lispro (Humalog) 0 units SC ACHS [facility]; Protocol Last Admin: 02/16/19 06:42 Dose: 8 units Losartan Potassium (Cozaar) 100 mg PO DAILY [facility] Last Admin: 02/15/19 09:29 Dose: 100 mg Methylprednisolone (Solu-Medrol) 20 mg IVP DAILY [facility] Ondansetron HCl (Zofran Inj) 4 mg IVP Q6 PRN PRN Reason: Nausea/Vomiting Pantoprazole Sodium (Protonix Ec Tab) 40 mg PO DAILY [facility] Last Admin: 02/15/19 09:23 Dose: 40 mg Tramadol HCl (Ultram) 50 mg PO TID [facility] Vitamin B Complex/Vit C/Folic Acid (Nephro-Briseida) 1 tab PO DAILY [facility] Last Admin: 02/15/19 09:29 Dose: 1 tab - Labs Labs: 02/15/19 04:20 02/16/19 04:40 - Constitutional Appears: Well, Non-toxic, No Acute Distress - Head Exam Head Exam: ATRAUMATIC, NORMAL INSPECTION, NORMOCEPHALIC - Eye Exam Eye Exam: EOMI, PERRL - ENT Exam ENT Exam: Mucous Membranes Moist - Respiratory Exam Respiratory Exam: Clear to Ausculation Bilateral, NORMAL BREATHING PATTERN - Cardiovascular Exam Cardiovascular Exam: REGULAR RHYTHM, RRR, +S1, +S2 - GI/Abdominal Exam GI & Abdominal Exam: Soft, Normal Bowel Sounds. absent: Tenderness - Extremities Exam Extremities Exam: Full ROM, Pedal Edema (+2 with valladares bilaterally) - Neurological Exam Neurological Exam: Alert, Awake, CN II-XII Intact, Oriented x3 - Skin Skin Exam: Dry, Intact Additional comments: valladares of bilateral lower extremities Assessment and Plan - Assessment and Plan (Free Text) Assessment: Bilateral lower extremity edema likely 2/2 to RAAS activation from right heart strain caused by pneumonia Pneumonia Hypertension Diabetes Mellitus Renal artery stenosis Peripheral Artery Disease Plan: Bilateral lower extremity edema likely 2/2 to RAAS activation from right heart strain caused by pneumonia Pneumonia Hypertension Diabetes Mellitus Renal artery stenosis Peripheral Artery Disease Lower extremity ultrasound: no sign of DVT V/Q scan: low probability for PE EKG: NSR with HR: 71 Troponinx1:<0.0120 BNP: 740 BUN/Cr: improved to 70/1.9 Lower extremity edema likely 2/2 to RAAS activation vs. CKD. Will reevaluate BUN today Medications: aspirin 81 mg daily plavix 75 mg daily hydralazine 50 mg TID lipitor 80 mg daily zetia 10 mg daily glucotrol 5 mg daily levemir 50 U HS lispro cozaar 100 mg daily held NS at 75cc/hr Codeine and tessalone perles for cough
[2019-02-16] MEDS: Multivitamin Vitamin B Complex (Nephro-Vite) Tab PO SCH (09:45)
[2019-02-16] MEDS: Pantoprazole 40 mg EC Tab PO SCH (09:45)
[2019-02-16] MEDS: Cholecalciferol 1,000 INTLU TAB PO SCH (09:48)
[2019-02-16] MEDS: MethylPREDNISolone 40 mg Vial IVP SCH (09:49)
[2019-02-16] MEDS: Sodium Chloride 0.9% 1,000 ML IV SCH (09:49)
[2019-02-16] MEDS: Ciprofloxacin 400mg/200ml D5W 400 MG/200 ML BAG IVPB SCH (10:10)
--- NOTE | 2019-02-16 12:43 | CP.PCM.PN ---
<Victorino Huber - Last Filed: 02/16/19 12:39> Subjective - Date & Time of Evaluation Date of Evaluation: 02/16/19 Time of Evaluation: 08:00 - Subjective Subjective: Patient seen and examined today at bedside c/o cough but better, LE edema much improved, no acute overnight events, mild abd pain when cough. Denies fever, chills, CP or sob. Objective - Vital Signs/Intake and Output Vital Signs (last 24 hours): Temp Pulse Resp BP Pulse Ox 97.3 F L 76 18 142/66 97 02/16/19 12:00 02/16/19 12:00 02/16/19 12:00 02/16/19 12:00 02/16/19 12:00 - Medications Medications: Current Medications Acetaminophen (Tylenol 650mg/20.3ml Solution Ud) 1,000 mg PO Q6 PRN PRN Reason: FEVER OR PAIN Acetaminophen (Tylenol 325mg Tab) 650 mg PO Q6 PRN PRN Reason: Pain, moderate (4-7) Last Admin: 02/13/19 06:37 Dose: 650 mg Al Hydrox/Mg Hydrox/Simethicone (Maalox Plus 30 Ml) 30 ml PO Q4 PRN PRN Reason: Indigestion / Heartburn Last Admin: 02/15/19 18:02 Dose: 30 ml Albuterol/Ipratropium (Duoneb 3 Mg/0.5 Mg (3 Ml) Ud) 3 ml INH RQ4 PRN PRN Reason: Shortness of Breath Last Admin: 02/16/19 01:34 Dose: 3 ml Amitriptyline HCl (Elavil) 25 mg PO HS [facility] Last Admin: 02/15/19 22:47 Dose: 25 mg Aspirin (Aspirin Chewable) 81 mg PO DAILY [facility] Last Admin: 02/16/19 09:46 Dose: 81 mg Atorvastatin Calcium (Lipitor) 80 mg PO DAILY [facility] Last Admin: 02/16/19 09:47 Dose: 80 mg Benzocaine/Menthol (Cepacol Sore Throat) 1 katy PO Q2 PRN PRN Reason: Sore Throat Last Admin: 02/14/19 11:11 Dose: 1 katy Benzonatate (Tessalon Perles) 100 mg PO Q8 PRN PRN Reason: Cough Last Admin: 02/14/19 21:15 Dose: 100 mg Cholecalciferol (Vitamin D) 1,000 intlu PO DAILY [facility] Last Admin: 02/16/19 09:48 Dose: 1,000 intlu Clopidogrel Bisulfate (Plavix) 75 mg PO DAILY [facility] Last Admin: 02/16/19 09:47 Dose: 75 mg Codeine Sulfate (Codeine) 15 mg PO Q6 PRN PRN Reason: Cough and congestion Dextrose (Dextrose 50% Inj) 0 ml IV STAT PRN; Protocol PRN Reason: Hypoglycemia Protocol Dextrose (Glutose 15) 0 gm PO ONCE PRN; Protocol PRN Reason: Hypoglycemia Protocol Ezetimibe (Zetia) 10 mg PO DAILY [facility] Last Admin: 02/16/19 09:45 Dose: 10 mg Fluticasone Propionate (Flonase) 1 spr SONIA BID [facility] Last Admin: 02/16/19 09:46 Dose: 1 spr Gabapentin (Neurontin) 1,200 mg PO TID [facility] Last Admin: 02/16/19 09:45 Dose: 1,200 mg Glipizide (Glucotrol) 5 mg PO DAILY [facility] Last Admin: 02/16/19 09:47 Dose: 5 mg Glucagon (Glucagen Diagnostic Kit) 0 mg IM STAT PRN; Protocol PRN Reason: Hypoglycemia Protocol Guaifenesin/Dextromethorphan (Robitussin Dm) 10 ml PO Q4 PRN PRN Reason: Cough Last Admin: 02/16/19 09:50 Dose: 10 ml Hydralazine HCl (Apresoline) 50 mg PO TID [facility] Last Admin: 02/16/19 09:45 Dose: 50 mg Piperacillin Sod/Tazobactam (Sod 2.25 gm/ Sodium Chloride) 100 mls @ 100 mls/hr IVPB Q8H [facility]; Protocol Last Admin: 02/16/19 10:09 Dose: 100 mls/hr Vancomycin HCl 1 gm/ Sodium (Chloride) 250 mls @ 166.667 mls/hr IVPB DAILY [facility]; Protocol Last Admin: 02/16/19 10:10 Dose: 166.667 mls/hr Sodium Chloride (Sodium Chloride 0.9%) 1,000 mls @ 75 mls/hr IV .[id number] [facility] Stop: 02/16/19 15:18 Last Admin: 02/16/19 09:49 Dose: 75 mls/hr Ciprofloxacin (Cipro 400mg/200ml Dsw) 400 mg in 200 mls @ 200 mls/hr IVPB DAILY [facility]; Protocol Last Admin: 02/16/19 10:10 Dose: 200 mls/hr Insulin Detemir (Levemir) 58 units SC HS [facility] Last Admin: 02/15/19 22:47 Dose: 58 u Insulin Human Lispro (Humalog) 18 units SC TID [facility] Last Admin: 02/16/19 09:48 Dose: 18 units Insulin Human Lispro (Humalog) 0 units SC ACHS [facility]; Protocol Last Admin: 02/16/19 06:42 Dose: 8 units Losartan Potassium (Cozaar) 100 mg PO DAILY [facility] Last Admin: 02/15/19 09:29 Dose: 100 mg Methylprednisolone (Solu-Medrol) 20 mg IVP DAILY [facility] Last Admin: 02/16/19 09:49 Dose: 20 mg Ondansetron HCl (Zofran Inj) 4 mg IVP Q6 PRN PRN Reason: Nausea/Vomiting Pantoprazole Sodium (Protonix Ec Tab) 40 mg PO DAILY [facility] Last Admin: 02/16/19 09:45 Dose: 40 mg Tramadol HCl (Ultram) 50 mg PO TID [facility] Vitamin B Complex/Vit C/Folic Acid (Nephro-Briseida) 1 tab PO DAILY [facility] Last Admin: 02/16/19 09:45 Dose: 1 tab - Labs Labs: 02/15/19 04:20 02/16/19 04:40 - Constitutional Appears: No Acute Distress - Head Exam Head Exam: NORMAL INSPECTION - Respiratory Exam Respiratory Exam: Rales (bibasilar), NORMAL BREATHING PATTERN. absent: Accessory Muscle Use, Respiratory Distress - Cardiovascular Exam Cardiovascular Exam: REGULAR RHYTHM, +S1, +S2 - GI/Abdominal Exam GI & Abdominal Exam: Soft, Normal Bowel Sounds. absent: Distended, Tenderness - Neurological Exam Neurological Exam: Alert, Awake, Oriented x3 - Skin Skin Exam: Dry, Warm Assessment and Plan - Assessment and Plan (Free Text) Assessment: 73 y/o F with PMH of HTN, CKD stage 3B, IDDM, renal artery stenosis, s/p stent in Jul, peripheral arterial disease, and recent SAH 3/5 admitted to [facility] for evaluation and treatment of COPD exacerbation/CHF exacerbation and Hospital Acq Pneumonia. Plan: Hospital-Acquired Pneumonia (HAP) - CT chest: posterior RLL pneumonia, mild small pleural effusion - Vanco, Zosyn and Cipro IV, (day 3) will need 6 more days - Robittusin PRN - Duonebs Q4 RTC - O2 via NC at 2 lpm - pulmonary on board - Blood cultures no growths in 48 hrs Dyspnea/CHF exacerbation - improving - V/Q scan: low probability for PE - Consult Pulmonary, f/u recommendations - Consult Cardio, f/u recommendations - Solumedrol 20 mg Q12H - C/w Duoneb [facility] Q4H - C/w daily Lasix 40mg - daily I&O Lower Extremities Pain/Edema - U/S LEs: No DVT - Consult Vascular Dr. 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 Sandy PGY 2 <Dottie Sprague - Last Filed: 02/16/19 18:28> Objective - Vital Signs/Intake and Output Vital Signs (last 24 hours): Temp Pulse Resp BP Pulse Ox 98.1 F 76 18 132/62 97 02/16/19 16:25 02/16/19 17:23 02/16/19 16:25 02/16/19 17:23 02/16/19 16:25 - Medications Medications: Current Medications Acetaminophen (Tylenol 650mg/20.3ml Solution Ud) 1,000 mg PO Q6 PRN PRN Reason: FEVER OR PAIN Acetaminophen (Tylenol 325mg Tab) 650 mg PO Q6 PRN PRN Reason: Pain, moderate (4-7) Last Admin: 02/13/19 06:37 Dose: 650 mg Al Hydrox/Mg Hydrox/Simethicone (Maalox Plus 30 Ml) 30 ml PO Q4 PRN PRN Reason: Indigestion / Heartburn Last Admin: 02/16/19 13:08 Dose: 30 ml Albuterol/Ipratropium (Duoneb 3 Mg/0.5 Mg (3 Ml) Ud) 3 ml INH RQ4 PRN PRN Reason: Shortness of Breath Last Admin: 02/16/19 16:33 Dose: 3 ml Amitriptyline HCl (Elavil) 25 mg PO HS [facility] Last Admin: 02/15/19 22:47 Dose: 25 mg Aspirin (Aspirin Chewable) 81 mg PO DAILY [facility] Last Admin: 02/16/19 09:46 Dose: 81 mg Atorvastatin Calcium (Lipitor) 80 mg PO DAILY [facility] Last Admin: 02/16/19 09:47 Dose: 80 mg Benzonatate (Tessalon Perles) 100 mg PO Q8 PRN PRN Reason: Cough Last Admin: 02/14/19 21:15 Dose: 100 mg Cholecalciferol (Vitamin D) 1,000 intlu PO DAILY [facility] Last Admin: 02/16/19 09:48 Dose: 1,000 intlu Clopidogrel Bisulfate (Plavix) 75 mg PO DAILY [facility] Last Admin: 02/16/19 09:47 Dose: 75 mg Codeine Sulfate (Codeine) 15 mg PO Q6 PRN PRN Reason: Cough and congestion Dextrose (Dextrose 50% Inj) 0 ml IV STAT PRN; Protocol PRN Reason: Hypoglycemia Protocol Dextrose (Glutose 15) 0 gm PO ONCE PRN; Protocol PRN Reason: Hypoglycemia Protocol Ezetimibe (Zetia) 10 mg PO DAILY [facility] Last Admin: 02/16/19 09:45 Dose: 10 mg Enoxaparin Sodium (Lovenox) 30 mg SC DAILY [facility]; Protocol Fluticasone Propionate (Flonase) 1 spr SONIA BID [facility] Last Admin: 02/16/19 17:23 Dose: 1 spr Gabapentin (Neurontin) 1,200 mg PO TID [facility] Last Admin: 02/16/19 17:23 Dose: 1,200 mg Glipizide (Glucotrol) 5 mg PO DAILY [facility] Last Admin: 02/16/19 09:47 Dose: 5 mg Glucagon (Glucagen Diagnostic Kit) 0 mg IM STAT PRN; Protocol PRN Reason: Hypoglycemia Protocol Guaifenesin/Dextromethorphan (Robitussin Dm) 10 ml PO Q4 PRN PRN Reason: Cough Last Admin: 02/16/19 17:25 Dose: 10 ml Hydralazine HCl (Apresoline) 50 mg PO TID [facility] Last Admin: 02/16/19 17:23 Dose: 50 mg Piperacillin Sod/Tazobactam (Sod 2.25 gm/ Sodium Chloride) 100 mls @ 100 mls/hr IVPB Q8H [facility]; Protocol Last Admin: 02/16/19 17:29 Dose: 100 mls/hr Vancomycin HCl 1 gm/ Sodium (Chloride) 250 mls @ 166.667 mls/hr IVPB DAILY [facility]; Protocol Last Admin: 02/16/19 10:10 Dose: 166.667 mls/hr Ciprofloxacin (Cipro 400mg/200ml Dsw) 400 mg in 200 mls @ 200 mls/hr IVPB DAILY [facility]; Protocol Last Admin: 02/16/19 10:10 Dose: 200 mls/hr Insulin Detemir (Levemir) 58 units SC HS [facility] Last Admin: 02/15/19 22:47 Dose: 58 u Insulin Human Lispro (Humalog) 18 units SC TID [facility] Last Admin: 02/16/19 17:23 Dose: 18 units Insulin Human Lispro (Humalog) 0 units SC ACHS [facility]; Protocol Last Admin: 02/16/19 17:24 Dose: 3 units Losartan Potassium (Cozaar) 100 mg PO DAILY [facility] Last Admin: 02/15/19 09:29 Dose: 100 mg Methylprednisolone (Solu-Medrol) 20 mg IVP DAILY [facility] Last Admin: 02/16/19 09:49 Dose: 20 mg Ondansetron HCl (Zofran Inj) 4 mg IVP Q6 PRN PRN Reason: Nausea/Vomiting Pantoprazole Sodium (Protonix Ec Tab) 40 mg PO DAILY [facility] Last Admin: 02/16/19 09:45 Dose: 40 mg Tramadol HCl (Ultram) 50 mg PO TID [facility] Vitamin B Complex/Vit C/Folic Acid (Nephro-Briseida) 1 tab PO DAILY [facility] Last Admin: 02/16/19 09:45 Dose: 1 tab - Labs Labs: 02/15/19 04:20 02/16/19 15:45 Attending/Attestation - Attestation I have personally seen and examined this patient.: Yes I have fully participated in the care of the patient.: Yes I have reviewed all pertinent clinical information, including history, physical exam and plan: Yes Notes (Text): HCAP ( pt recently in [facility]) Acute CHF , diastolic dysfunction COPD exacerbation DM type II with hyperglycemia MELE on CKD Stage IV cont IV Zosyn, Vanco and Cipro ( renal dose) Pulm and Cardio consulted cont IV Solumedrol, Duoneb Increase Levemir dose to 60 units cont TID Lispro and Glipizide Physical therapy Lovenox for DVT proph Plan to d/c pt to [facility] to cont IV antibiotics for 6 more days
[2019-02-16] MEDS: Alum-Mag Hydrox-Simethicone Susp (30 mL) PO PRN (13:08)
--- NOTE | 2019-02-16 15:40 | CP.PCM.PN ---
Subjective - Date & Time of Evaluation Date of Evaluation: 02/16/19 Time of Evaluation: 11:15 - Subjective Subjective: F/U PNA Pt with no SOB, dry cough. Objective - Vital Signs/Intake and Output Vital Signs (last 24 hours): Temp Pulse Resp BP Pulse Ox 97.3 F L 76 18 142/66 97 02/16/19 12:00 02/16/19 13:08 02/16/19 12:00 02/16/19 13:08 02/16/19 12:00 - Medications Medications: Current Medications Acetaminophen (Tylenol 650mg/20.3ml Solution Ud) 1,000 mg PO Q6 PRN PRN Reason: FEVER OR PAIN Acetaminophen (Tylenol 325mg Tab) 650 mg PO Q6 PRN PRN Reason: Pain, moderate (4-7) Last Admin: 02/13/19 06:37 Dose: 650 mg Al Hydrox/Mg Hydrox/Simethicone (Maalox Plus 30 Ml) 30 ml PO Q4 PRN PRN Reason: Indigestion / Heartburn Last Admin: 02/16/19 13:08 Dose: 30 ml Albuterol/Ipratropium (Duoneb 3 Mg/0.5 Mg (3 Ml) Ud) 3 ml INH RQ4 PRN PRN Reason: Shortness of Breath Last Admin: 02/16/19 01:34 Dose: 3 ml Amitriptyline HCl (Elavil) 25 mg PO HS [facility] Last Admin: 02/15/19 22:47 Dose: 25 mg Aspirin (Aspirin Chewable) 81 mg PO DAILY [facility] Last Admin: 02/16/19 09:46 Dose: 81 mg Atorvastatin Calcium (Lipitor) 80 mg PO DAILY [facility] Last Admin: 02/16/19 09:47 Dose: 80 mg Benzocaine/Menthol (Cepacol Sore Throat) 1 katy PO Q2 PRN PRN Reason: Sore Throat Last Admin: 02/14/19 11:11 Dose: 1 katy Benzonatate (Tessalon Perles) 100 mg PO Q8 PRN PRN Reason: Cough Last Admin: 02/14/19 21:15 Dose: 100 mg Cholecalciferol (Vitamin D) 1,000 intlu PO DAILY [facility] Last Admin: 02/16/19 09:48 Dose: 1,000 intlu Clopidogrel Bisulfate (Plavix) 75 mg PO DAILY [facility] Last Admin: 02/16/19 09:47 Dose: 75 mg Codeine Sulfate (Codeine) 15 mg PO Q6 PRN PRN Reason: Cough and congestion Dextrose (Dextrose 50% Inj) 0 ml IV STAT PRN; Protocol PRN Reason: Hypoglycemia Protocol Dextrose (Glutose 15) 0 gm PO ONCE PRN; Protocol PRN Reason: Hypoglycemia Protocol Ezetimibe (Zetia) 10 mg PO DAILY [facility] Last Admin: 02/16/19 09:45 Dose: 10 mg Fluticasone Propionate (Flonase) 1 spr SONIA BID [facility] Last Admin: 02/16/19 09:46 Dose: 1 spr Gabapentin (Neurontin) 1,200 mg PO TID [facility] Last Admin: 02/16/19 13:08 Dose: 1,200 mg Glipizide (Glucotrol) 5 mg PO DAILY [facility] Last Admin: 02/16/19 09:47 Dose: 5 mg Glucagon (Glucagen Diagnostic Kit) 0 mg IM STAT PRN; Protocol PRN Reason: Hypoglycemia Protocol Guaifenesin/Dextromethorphan (Robitussin Dm) 10 ml PO Q4 PRN PRN Reason: Cough Last Admin: 02/16/19 09:50 Dose: 10 ml Hydralazine HCl (Apresoline) 50 mg PO TID [facility] Last Admin: 02/16/19 13:08 Dose: 50 mg Piperacillin Sod/Tazobactam (Sod 2.25 gm/ Sodium Chloride) 100 mls @ 100 mls/hr IVPB Q8H [facility]; Protocol Last Admin: 02/16/19 10:09 Dose: 100 mls/hr Vancomycin HCl 1 gm/ Sodium (Chloride) 250 mls @ 166.667 mls/hr IVPB DAILY [facility]; Protocol Last Admin: 02/16/19 10:10 Dose: 166.667 mls/hr Ciprofloxacin (Cipro 400mg/200ml Dsw) 400 mg in 200 mls @ 200 mls/hr IVPB DAILY [facility]; Protocol Last Admin: 02/16/19 10:10 Dose: 200 mls/hr Insulin Detemir (Levemir) 58 units SC HS [facility] Last Admin: 02/15/19 22:47 Dose: 58 u Insulin Human Lispro (Humalog) 18 units SC TID [facility] Last Admin: 02/16/19 13:09 Dose: 18 units Insulin Human Lispro (Humalog) 0 units SC ACHS [facility]; Protocol Last Admin: 02/16/19 13:09 Dose: 8 units Losartan Potassium (Cozaar) 100 mg PO DAILY [facility] Last Admin: 02/15/19 09:29 Dose: 100 mg Methylprednisolone (Solu-Medrol) 20 mg IVP DAILY [facility] Last Admin: 02/16/19 09:49 Dose: 20 mg Ondansetron HCl (Zofran Inj) 4 mg IVP Q6 PRN PRN Reason: Nausea/Vomiting Pantoprazole Sodium (Protonix Ec Tab) 40 mg PO DAILY [facility] Last Admin: 02/16/19 09:45 Dose: 40 mg Tramadol HCl (Ultram) 50 mg PO TID [facility] Vitamin B Complex/Vit C/Folic Acid (Nephro-Briseida) 1 tab PO DAILY [facility] Last Admin: 02/16/19 09:45 Dose: 1 tab - Labs Labs: 02/15/19 04:20 02/16/19 04:40 - Constitutional Appears: No Acute Distress - Head Exam Head Exam: NORMAL INSPECTION - Eye Exam Eye Exam: PERRL - ENT Exam ENT Exam: Normal Exam - Neck Exam Neck Exam: Normal Inspection - Respiratory Exam Respiratory Exam: Decreased Breath Sounds (at bases) - Cardiovascular Exam Cardiovascular Exam: REGULAR RHYTHM - GI/Abdominal Exam GI & Abdominal Exam: Soft, Normal Bowel Sounds - Extremities Exam Additional comments: 2+ non pitting edema BLE, chronic legs venous stasis changes - Back Exam Back Exam: NORMAL INSPECTION - Neurological Exam Neurological Exam: Alert, Awake, Oriented x3 - Skin Skin Exam: Warm Assessment and Plan (1) RLL pneumonia Status: Acute (2) COPD exacerbation Status: Chronic - Assessment and Plan (Free Text) Plan: Continue Zosyn, Vanco, steroids and rest of Tx.
[2019-02-16] MEDS: Benzocaine/Menthol (Cepacol) Lozenge PO PRN (17:23)
[2019-02-16] MEDS: Enoxaparin 30 mg Syringe SC SCH (20:00)
[2019-02-16] MEDS: Insulin Detemir 100 Units/ml Inj SC SCH (22:20)
[2019-02-17] MEDS: Benzocaine/Menthol (Cepacol) Lozenge PO PRN ×2 (04:53→09:12)
[2019-02-17] MEDS: Insulin Lispro (humaLOG) 100 Units/ml Inj SC SCH ×6 (06:34→17:35)
[2019-02-17] MEDS: Enoxaparin 30 mg Syringe SC SCH (08:57)
[2019-02-17] MEDS: Multivitamin Vitamin B Complex (Nephro-Vite) Tab PO SCH (08:58)
[2019-02-17] MEDS: Pantoprazole 40 mg EC Tab PO SCH (08:59)
[2019-02-17] MEDS: MethylPREDNISolone 40 mg Vial IVP SCH (09:00)
[2019-02-17] MEDS: Cholecalciferol 1,000 INTLU TAB PO SCH (09:00)
[2019-02-17] MEDS: guaiFENesin DM 200 mg-20 mg/10 ml UD PO PRN ×2 (09:05→17:43)
--- NOTE | 2019-02-17 12:29 | CP.PCM.DIS ---
Provider - Provider Date of Admission: 02/12/19 21:22 Attending physician: Abner Mcdaniels Consults: 02/12/19 21:24 Cardiology Consult Stat Comment: Consulting Provider: Jermain Romano Consulting Physician: Jermain Romano Reason for Consult: CHF 02/13/19 00:09 Pulmonology Consult Stat Comment: Consulting Provider: Jean-Claude Valles Consulting Physician: Jean-Claude Valles Reason for Consult: Pneumonia/COPD Time Spent in preparation of Discharge (in minutes): 38 Diagnosis - Discharge Diagnosis (1) Hospital acquired PNA Status: Acute (2) Pleural effusion Status: Acute (3) Chronic congestive heart failure Status: Acute (4) COPD exacerbation Status: Chronic Priority: High (5) Chronic kidney disease, stage III (moderate) Status: Chronic (6) Hypertension Status: Chronic (7) Insulin dependent diabetes mellitus Status: Chronic (8) Peripheral vascular disease Status: Chronic Hospital Course - Lab Results Lab Results: Micro Results 02/12/19 20:15 Blood Blood Culture - Preliminary NO GROWTH AFTER 4 DAYS 02/12/19 20:15 Blood Blood Culture - Preliminary NO GROWTH AFTER 4 DAYS Most Recent Lab Values WBC 8.7 K/uL (4.8-10.8) 02/15/19 04:20 RBC 2.90 Mil/uL (3.80-5.20) L 02/15/19 04:20 Hgb 8.3 g/dL (12.0-16.0) L 02/15/19 04:20 Hct 24.7 % (34.0-47.0) L 02/15/19 04:20 MCV 85.2 fl (81.0-99.0) 02/15/19 04:20 MCH 28.5 pg (27.0-31.0) 02/15/19 04:20 MCHC 33.5 g/dL (33.0-37.0) 02/15/19 04:20 RDW 15.3 % (11.5-14.5) H 02/15/19 04:20 Plt Count 183 K/uL (130-400) 02/15/19 04:20 MPV 8.8 fl (7.2-11.7) 02/13/19 04:25 Neut % (Auto) 90.8 % (50.0-75.0) H 02/13/19 04:25 Lymph % (Auto) 7.8 % (20.0-40.0) L 02/13/19 04:25 Randall % (Auto) 1.2 % (0.0-10.0) 02/13/19 04:25 Eos % (Auto) 0.1 % (0.0-4.0) 02/13/19 04:25 Baso % (Auto) 0.1 % (0.0-2.0) 02/13/19 04:25 Neut # (Auto) 7.3 K/uL (1.8-7.0) H 02/13/19 04:25 Lymph # (Auto) 0.6 K/uL (1.0-4.3) L 02/13/19 04:25 Randall # (Auto) 0.1 K/uL (0.0-0.8) 02/13/19 04:25 Eos # (Auto) 0.0 K/uL (0.0-0.7) 02/13/19 04:25 Baso # (Auto) 0.0 K/uL (0.0-0.2) 02/13/19 04:25 Neutrophils % (Manual) 87 % (42-75) H 02/13/19 04:25 Band Neutrophils % 2 % (0-2) 02/13/19 04:25 Lymphocytes % (Manual) 9 % (20-50) L 02/13/19 04:25 Monocytes % (Manual) 1 % (0-10) 02/13/19 04:25 Basophils % (Manual) 1 % (0-2) 02/13/19 04:25 Platelet Estimate Normal (NORMAL) 02/13/19 04:25 Hypochromasia (manual) Slight 02/13/19 04:25 Anisocytosis (manual) Slight 02/13/19 04:25 Target Cells Slight 02/13/19 04:25 Tear Drop Cells Slight 02/13/19 04:25 pCO2 47 mm/Hg (35-45) H 02/12/19 20:39 pO2 54 mm/Hg (80-100) L 02/12/19 20:39 HCO3 33.0 mmol/L (21-28) H 02/12/19 20:39 ABG pH 7.48 (7.35-7.45) H 02/12/19 20:39 ABG Total CO2 36.4 mmol/L (22-28) H 02/12/19 20:39 ABG O2 Saturation 98.0 % (95-98) 02/12/19 20:39 ABG O2 Content 11.8 ML/dL (15-23) L 02/12/19 20:39 ABG Base Excess 10.4 mmol/L (-2.0-3.0) H 02/12/19 20:39 ABG Hemoglobin 9.0 g/dL (11.7-17.4) L 02/12/19 20:39 ABG Carboxyhemoglobin 3.1 % (0.5-1.5) H 02/12/19 20:39 POC ABG HHb (Measured) 1.9 % (0.0-5.0) 02/12/19 20:39 ABG Methemoglobin 2.0 % (0.0-3.0) 02/12/19 20:39 ABG O2 Capacity 12.0 mL/dL (16-24) L 02/12/19 20:39 Conor Test Yes 02/12/19 20:39 A-a O2 Difference 101.0 mm/Hg 02/12/19 20:39 Hgb O2 Saturation 93.0 % (95.0-98.0) L 02/12/19 20:39 FiO2 30.0 % 02/12/19 20:39 Sodium 136 mmol/l (132-148) 02/16/19 04:40 Potassium 4.8 MMOL/L (3.6-5.0) 02/16/19 04:40 Chloride 98 mmol/L (98-107) 02/16/19 04:40 Carbon Dioxide 29 mmol/L (22-30) 02/16/19 04:40 Anion Gap 14 (10-20) 02/16/19 04:40 BUN 65 mg/dl (7-17) H 02/16/19 15:45 Creatinine 1.9 mg/dl (0.7-1.2) H 02/16/19 04:40 Est GFR ( Amer) 31 02/16/19 04:40 Est GFR (Non-Af Amer) 26 02/16/19 04:40 POC Glucose (mg/dL) 84 mg/dL (65-110) 02/17/19 05:51 Random Glucose 343 mg/dL (65-105) H 02/16/19 04:40 Calcium 7.5 mg/dL (8.4-10.2) L 02/16/19 04:40 Total Bilirubin 0.4 mg/dl (0.2-1.3) 02/14/19 04:31 AST 22 U/L (14-36) 02/14/19 04:31 ALT 34 U/L (9-52) 02/14/19 04:31 Alkaline Phosphatase 116 U/L (38-126) 02/14/19 04:31 Troponin I < 0.0120 ng/mL (0.00-0.120) 02/12/19 20:15 NT-Pro-B Natriuret Pep 740 pg/ml (0-900) 02/12/19 20:15 Total Protein 7.2 G/DL (6.3-8.2) 02/14/19 04:31 Albumin 3.7 g/dL (3.5-5.0) 02/14/19 04:31 Globulin 3.5 gm/dL (2.2-3.9) 02/14/19 04:31 Albumin/Globulin Ratio 1.1 (1.0-2.1) 02/14/19 04:31 Urine Color Straw (YELLOW) 02/13/19 00:45 Urine Clarity Clear (Clear) 02/13/19 00:45 Urine pH 6.0 (5.0-8.0) 02/13/19 00:45 Ur Specific [place] 1.010 (1.003-1.030) 02/13/19 00:45 Urine Protein 100 mg/dL (NEGATIVE) 02/13/19 00:45 Urine Glucose (UA) 50 mg/dL (NEGATIVE) 02/13/19 00:45 Urine Ketones Negative mg/dL (NEGATIVE) 02/13/19 00:45 Urine Blood Small (NEGATIVE) 02/13/19 00:45 Urine Nitrate Negative (NEGATIVE) 02/13/19 00:45 Urine Bilirubin Negative (NEGATIVE) 02/13/19 00:45 Urine Urobilinogen 0.2-1.0 mg/dL (0.2-1.0) 18 00:45 Ur Leukocyte Esterase Neg [place]/uL (Negative) 02/13/19 00:45 Urine RBC (Auto) 1 /hpf (0-3) 02/13/19 00:45 Urine Microscopic WBC < 1 /hpf (0-5) 02/13/19 00:45 Ur Squamous Epith Cells < 1 /hpf (0-5) 02/13/19 00:45 Vancomycin Trough 5.7 ug/mL (5.0-10.0) 02/15/19 10:05 Influenza Typ A,B (EIA) Negative for flu a/b (NEGATIVE) 02/12/19 20:15 - Hospital Course Hospital Course: This is 73 y/o F with PMH of HTN, CKD stage 3B, IDDM, renal artery stenosis, s/p stent in Jul, peripheral arterial disease, and recent SAH 01/31 admitted to [facility] for evaluation and treatment of COPD exacerbation/CHF exacerbation and Pneumonia. Patient was recently discharged from the hospital 10 days ago after evaluation and treatment of SAH. Patient comes to the ED c/o one week history of progressively worsening dyspnea, and Cough. Patient reports, she has been using her home oxygen, Albuterol and Lasix w/o any relief. + white phlegm with cough, + limited activies due to dyspnea and LE pain. Denies any fever, chest pain, Dizziness, palpitations, blurred vision, headache, abdominal pain or dysuria. Patient reports on and off chronic pain plus edema of her b/l LEs which makes difficult to walk at home. During stay Pulmonology and Cardiology were consulted, pt started on Vanco, Zosyn and Cipro IV, Blood cultures no growths in 48 hrs, pt afebrile, feeling better stable at discharge time. Pt discharged to [facility] to complete IV antibiotics course and PT. - CT chest: posterior RLL pneumonia, mild small pleural effusion - V/Q scan: low probability for PE Discharge Exam - Head Exam Head Exam: NORMAL INSPECTION - Respiratory Exam Respiratory Exam: Decreased Breath Sounds, Rales (bibasilar), Wheezes (R lung field). absent: Accessory Muscle Use - Cardiovascular Exam Cardiovascular Exam: REGULAR RHYTHM, +S1, +S2 - GI/Abdominal Exam GI & Abdominal Exam: Normal Bowel Sounds, Soft. absent: Distended, Tenderness - Extremities Exam Additional comments: b/l lower extr edema improving - Neurological Exam Neurological exam: Alert, Oriented x3 - Skin Skin Exam: Dry, Warm Discharge Plan - Discharge Medications Prescriptions: Ciprofloxacin IV [Cipro IV] 400 mg IV DAILY 5 Days #5 vial Piperacillin Sodium/Tazobactam [Piperacil-Tazobact 2.25 gm Vl] 2.25 gm IV Q8H 5 Days #15 vial Vancomycin 1 GM [Vancomycin 1GM in Normal Saline Addvantage] 1 gm IVPB DAILY 5 Days #5 bag - Follow Up Plan Condition: FAIR Disposition: REHAB FACILITY/REHAB UNIT Instructions: Pneumonia, Adult (DC) Additional Instructions: plan: [facility] Referrals: [facility] [Outside] Jermain Romano MD [Staff Provider] - Manuel Gonzalez MD [Family Provider] -
--- NOTE | 2019-02-17 12:38 | CP.PCM.PN ---
Subjective - Date & Time of Evaluation Date of Evaluation: 02/17/19 Time of Evaluation: 12:35 - Subjective Subjective: Jani Orellana, PGY-1, Cardiology Progress Note for Dr. Romano Patient seen and evaluated at bedside. Patient had no acute overnight events. Patient reports abdominal pain and chest pain with cough. Patient feels more short of breath today but has no complaints of wheezing. Patient's cough is dry. Patient feels congested. Patient denies left arm pain, jaw pain, diaphoresis, nausea, dizziness. Objective - Vital Signs/Intake and Output Vital Signs (last 24 hours): Temp Pulse Resp BP Pulse Ox 97.2 F L 72 20 149/65 94 L 02/17/19 08:00 02/17/19 08:52 02/17/19 08:00 02/17/19 08:52 02/17/19 08:00 - Medications Medications: Current Medications Acetaminophen (Tylenol 650mg/20.3ml Solution Ud) 1,000 mg PO Q6 PRN PRN Reason: FEVER OR PAIN Acetaminophen (Tylenol 325mg Tab) 650 mg PO Q6 PRN PRN Reason: Pain, moderate (4-7) Last Admin: 02/13/19 06:37 Dose: 650 mg Acetylcysteine (Acetylcysteine 20%) 2 ml INH RBID NANDO Al Hydrox/Mg Hydrox/Simethicone (Maalox Plus 30 Ml) 30 ml PO Q4 PRN PRN Reason: Indigestion / Heartburn Last Admin: 02/16/19 13:08 Dose: 30 ml Albuterol/Ipratropium (Duoneb 3 Mg/0.5 Mg (3 Ml) Ud) 3 ml INH RQ4 PRN PRN Reason: Shortness of Breath Last Admin: 02/16/19 16:33 Dose: 3 ml Amitriptyline HCl (Elavil) 25 mg PO HS NANDO Last Admin: 02/16/19 21:55 Dose: 25 mg Aspirin (Aspirin Chewable) 81 mg PO DAILY NANDO Last Admin: 02/17/19 08:53 Dose: 81 mg Atorvastatin Calcium (Lipitor) 80 mg PO DAILY NANDO Last Admin: 02/17/19 08:57 Dose: 80 mg Benzocaine/Menthol (Cepacol Sore Throat) 1 katy PO Q2 PRN PRN Reason: Sore Throat Last Admin: 02/17/19 09:12 Dose: 1 katy Benzonatate (Tessalon Perles) 100 mg PO Q8 PRN PRN Reason: Cough Last Admin: 02/17/19 05:29 Dose: 100 mg Cholecalciferol (Vitamin D) 1,000 intlu PO DAILY [facility] Last Admin: 02/17/19 09:00 Dose: 1,000 intlu Clopidogrel Bisulfate (Plavix) 75 mg PO DAILY [facility] Last Admin: 02/17/19 08:59 Dose: 75 mg Codeine Sulfate (Codeine) 15 mg PO Q6 PRN PRN Reason: Cough and congestion Dextrose (Dextrose 50% Inj) 0 ml IV STAT PRN; Protocol PRN Reason: Hypoglycemia Protocol Dextrose (Glutose 15) 0 gm PO ONCE PRN; Protocol PRN Reason: Hypoglycemia Protocol Ezetimibe (Zetia) 10 mg PO DAILY [facility] Last Admin: 02/17/19 09:01 Dose: 10 mg Enoxaparin Sodium (Lovenox) 30 mg SC DAILY [facility]; Protocol Last Admin: 02/17/19 08:57 Dose: 30 mg Fluticasone Propionate (Flonase) 1 spr SONIA BID [facility] Last Admin: 02/17/19 08:56 Dose: 1 spr Gabapentin (Neurontin) 1,200 mg PO TID [facility] Last Admin: 02/17/19 08:58 Dose: 1,200 mg Glipizide (Glucotrol) 5 mg PO DAILY [facility] Last Admin: 02/17/19 08:56 Dose: 5 mg Glucagon (Glucagen Diagnostic Kit) 0 mg IM STAT PRN; Protocol PRN Reason: Hypoglycemia Protocol Guaifenesin/Dextromethorphan (Robitussin Dm) 10 ml PO Q4 PRN PRN Reason: Cough Last Admin: 02/17/19 09:05 Dose: 10 ml Hydralazine HCl (Apresoline) 50 mg PO TID [facility] Last Admin: 02/17/19 08:52 Dose: 50 mg Piperacillin Sod/Tazobactam (Sod 2.25 gm/ Sodium Chloride) 100 mls @ 100 mls/hr IVPB Q8H NANDO; Protocol Last Admin: 02/17/19 12:17 Dose: 100 mls/hr Vancomycin HCl 1 gm/ Sodium (Chloride) 250 mls @ 166.667 mls/hr IVPB DAILY [facility]; Protocol Last Admin: 02/17/19 09:02 Dose: 166.667 mls/hr Ciprofloxacin (Cipro 400mg/200ml Dsw) 400 mg in 200 mls @ 200 mls/hr IVPB DAILY [facility]; Protocol Last Admin: 02/16/19 10:10 Dose: 200 mls/hr Insulin Detemir (Levemir) 50 units SC HS [facility] Insulin Human Lispro (Humalog) 18 units SC TID [facility] Last Admin: 02/17/19 09:07 Dose: 18 units Insulin Human Lispro (Humalog) 0 units SC ACHS [facility]; Protocol Last Admin: 02/17/19 06:34 Dose: Not Given Losartan Potassium (Cozaar) 100 mg PO DAILY [facility] Last Admin: 02/15/19 09:29 Dose: 100 mg Methylprednisolone (Solu-Medrol) 20 mg IVP BID [facility] Ondansetron HCl (Zofran Inj) 4 mg IVP Q6 PRN PRN Reason: Nausea/Vomiting Pantoprazole Sodium (Protonix Ec Tab) 40 mg PO DAILY [facility] Last Admin: 02/17/19 08:59 Dose: 40 mg Vitamin B Complex/Vit C/Folic Acid (Nephro-Briseida) 1 tab PO DAILY [facility] Last Admin: 02/17/19 08:58 Dose: 1 tab - Labs Labs: 02/15/19 04:20 02/16/19 15:45 - Constitutional Appears: Well, Non-toxic, No Acute Distress - Head Exam Head Exam: ATRAUMATIC, NORMAL INSPECTION, NORMOCEPHALIC - Eye Exam Eye Exam: EOMI, PERRL - ENT Exam ENT Exam: Mucous Membranes Moist - Respiratory Exam Respiratory Exam: Clear to Ausculation Bilateral, NORMAL BREATHING PATTERN - Cardiovascular Exam Cardiovascular Exam: REGULAR RHYTHM, RRR, +S1, +S2 - GI/Abdominal Exam GI & Abdominal Exam: Soft, Normal Bowel Sounds. absent: Tenderness - Extremities Exam Extremities Exam: Full ROM, Pedal Edema (+2 with valladares bilaterally) - Neurological Exam Neurological Exam: Alert, Awake, CN II-XII Intact, Oriented x3 - Skin Skin Exam: Dry, Intact Additional comments: valladares of bilateral lower extremities Assessment and Plan - Assessment and Plan (Free Text) Assessment: Bilateral lower extremity edema likely 2/2 to RAAS activation from right heart strain caused by pneumonia Pneumonia Hypertension Diabetes Mellitus Renal artery stenosis Peripheral Artery Disease Plan: Bilateral lower extremity edema likely 2/2 to RAAS activation from right heart strain caused by pneumonia Pneumonia Hypertension Diabetes Mellitus Renal artery stenosis Peripheral Artery Disease Lower extremity ultrasound: no sign of DVT V/Q scan: low probability for PE EKG: NSR with HR: 71 Troponinx1:<0.0120 BNP: 740 BUN/Cr 02/16: improved to 70/1.9 Repeat BUN was 65 Lower extremity edema likely 2/2 to RAAS activation vs. CKD. Patient should follow up outpatient with Dr. Romano upon discharge. Medications: aspirin 81 mg daily plavix 75 mg daily hydralazine 50 mg TID lipitor 80 mg daily zetia 10 mg daily glucotrol 5 mg daily levemir 50 U HS lispro cozaar 100 mg daily held NS at 75cc/hr Codeine, acetylcysteine, cepacol, and tessalone perles for cough
[2019-02-17] MEDS: Ciprofloxacin 400mg/200ml D5W 400 MG/200 ML BAG IVPB SCH (14:16)
--- NOTE | 2019-02-17 14:36 | CP.PCM.PN ---
Subjective - Date & Time of Evaluation Date of Evaluation: 02/17/19 Time of Evaluation: 12:30 - Subjective Subjective: F/U PNA, COPD Exacerbation No SOB, dry cough. Objective - Vital Signs/Intake and Output Vital Signs (last 24 hours): Temp Pulse Resp BP Pulse Ox 97.3 F L 77 20 142/62 97 02/17/19 12:52 02/17/19 13:06 02/17/19 12:52 02/17/19 13:06 02/17/19 12:52 - Medications Medications: Current Medications Acetaminophen (Tylenol 650mg/20.3ml Solution Ud) 1,000 mg PO Q6 PRN PRN Reason: FEVER OR PAIN Acetaminophen (Tylenol 325mg Tab) 650 mg PO Q6 PRN PRN Reason: Pain, moderate (4-7) Last Admin: 02/13/19 06:37 Dose: 650 mg Acetylcysteine (Acetylcysteine 20%) 2 ml INH RBID NANDO Al Hydrox/Mg Hydrox/Simethicone (Maalox Plus 30 Ml) 30 ml PO Q4 PRN PRN Reason: Indigestion / Heartburn Last Admin: 02/16/19 13:08 Dose: 30 ml Albuterol/Ipratropium (Duoneb 3 Mg/0.5 Mg (3 Ml) Ud) 3 ml INH RQ4 PRN PRN Reason: Shortness of Breath Last Admin: 02/16/19 16:33 Dose: 3 ml Amitriptyline HCl (Elavil) 25 mg PO HS [facility] Last Admin: 02/16/19 21:55 Dose: 25 mg Aspirin (Aspirin Chewable) 81 mg PO DAILY [facility] Last Admin: 02/17/19 08:53 Dose: 81 mg Atorvastatin Calcium (Lipitor) 80 mg PO DAILY [facility] Last Admin: 02/17/19 08:57 Dose: 80 mg Benzocaine/Menthol (Cepacol Sore Throat) 1 katy PO Q2 PRN PRN Reason: Sore Throat Last Admin: 02/17/19 09:12 Dose: 1 katy Benzonatate (Tessalon Perles) 100 mg PO Q8 PRN PRN Reason: Cough Last Admin: 02/17/19 05:29 Dose: 100 mg Cholecalciferol (Vitamin D) 1,000 intlu PO DAILY [facility] Last Admin: 02/17/19 09:00 Dose: 1,000 intlu Clopidogrel Bisulfate (Plavix) 75 mg PO DAILY [facility] Last Admin: 02/17/19 08:59 Dose: 75 mg Codeine Sulfate (Codeine) 15 mg PO Q6 PRN PRN Reason: Cough and congestion Dextrose (Dextrose 50% Inj) 0 ml IV STAT PRN; Protocol PRN Reason: Hypoglycemia Protocol Dextrose (Glutose 15) 0 gm PO ONCE PRN; Protocol PRN Reason: Hypoglycemia Protocol Ezetimibe (Zetia) 10 mg PO DAILY [facility] Last Admin: 02/17/19 09:01 Dose: 10 mg Enoxaparin Sodium (Lovenox) 30 mg SC DAILY [facility]; Protocol Last Admin: 02/17/19 08:57 Dose: 30 mg Fluticasone Propionate (Flonase) 1 spr SONIA BID [facility] Last Admin: 02/17/19 08:56 Dose: 1 spr Gabapentin (Neurontin) 1,200 mg PO TID [facility] Last Admin: 02/17/19 13:08 Dose: 1,200 mg Glipizide (Glucotrol) 5 mg PO DAILY [facility] Last Admin: 02/17/19 08:56 Dose: 5 mg Glucagon (Glucagen Diagnostic Kit) 0 mg IM STAT PRN; Protocol PRN Reason: Hypoglycemia Protocol Guaifenesin/Dextromethorphan (Robitussin Dm) 10 ml PO Q4 PRN PRN Reason: Cough Last Admin: 02/17/19 09:05 Dose: 10 ml Hydralazine HCl (Apresoline) 50 mg PO TID [facility] Last Admin: 02/17/19 13:06 Dose: 50 mg Piperacillin Sod/Tazobactam (Sod 2.25 gm/ Sodium Chloride) 100 mls @ 100 mls/hr IVPB Q8H [facility]; Protocol Last Admin: 02/17/19 12:17 Dose: 100 mls/hr Vancomycin HCl 1 gm/ Sodium (Chloride) 250 mls @ 166.667 mls/hr IVPB DAILY [facility]; Protocol Last Admin: 02/17/19 09:02 Dose: 166.667 mls/hr Ciprofloxacin (Cipro 400mg/200ml Dsw) 400 mg in 200 mls @ 200 mls/hr IVPB DAILY [facility]; Protocol Last Admin: 02/17/19 14:16 Dose: 200 mls/hr Insulin Detemir (Levemir) 50 units SC [facility] Insulin Human Lispro (Humalog) 18 units SC TID [facility] Last Admin: 02/17/19 13:07 Dose: Not Given Insulin Human Lispro (Humalog) 0 units SC ACHS [facility]; Protocol Last Admin: 02/17/19 13:06 Dose: Not Given Losartan Potassium (Cozaar) 100 mg PO DAILY [facility] Last Admin: 02/15/19 09:29 Dose: 100 mg Methylprednisolone (Solu-Medrol) 20 mg IVP BID [facility] Ondansetron HCl (Zofran Inj) 4 mg IVP Q6 PRN PRN Reason: Nausea/Vomiting Pantoprazole Sodium (Protonix Ec Tab) 40 mg PO DAILY [facility] Last Admin: 02/17/19 08:59 Dose: 40 mg Vitamin B Complex/Vit C/Folic Acid (Nephro-Briseida) 1 tab PO DAILY [facility] Last Admin: 02/17/19 08:58 Dose: 1 tab - Labs Labs: 02/15/19 04:20 02/16/19 15:45 - Constitutional Appears: No Acute Distress - Head Exam Head Exam: NORMAL INSPECTION - Eye Exam Eye Exam: PERRL - ENT Exam ENT Exam: Normal Exam - Neck Exam Neck Exam: Normal Inspection - Respiratory Exam Respiratory Exam: Decreased Breath Sounds (at bases), Wheezes (scattered ) - Cardiovascular Exam Cardiovascular Exam: REGULAR RHYTHM - GI/Abdominal Exam GI & Abdominal Exam: Soft, Normal Bowel Sounds - Extremities Exam Additional comments: edema BLE, chronic legs venous stasis changes BLE - Neurological Exam Neurological Exam: Alert, Awake, Oriented x3 - Psychiatric Exam Psychiatric exam: Normal Mood - Skin Skin Exam: Warm Assessment and Plan (1) RLL pneumonia Status: Acute (2) COPD exacerbation Status: Chronic - Assessment and Plan (Free Text) Plan: Continue current abx, Pt will be transfer to [facility]
[2019-02-17 15:59] VITALS: RESP 18; TEMP 97.6
[2019-02-17] MEDS ORDERED: MethylPREDNISolone 40 mg Vial IVP SCH (17:00)
[2019-02-17 19:57] VITALS: BP 137/60; PULSE 87; O2SAT 99
[2019-02-17] MEDS ORDERED: Acetylcysteine 20% Inhal Soln (4ml) INH SCH (20:00)
[2019-02-17] MEDS ORDERED: Insulin Detemir 100 Units/ml Inj SC SCH (22:00)
== END 2019-02-17 20:40 | DRG 291 ==
LOC: H.ER 18:04 → H.ERHOLD 21:22 → H.TEL 02-13 02:08
PROVIDERS: ADMIT Internal Medicine; ATTEND Internal Medicine
DX: I13.0 Hypertensive heart and chronic kidney disease with heart failure and stage 1 through stage 4 chronic kidney disease, or unspecified chronic kidney disease (principal); I50.33 Acute on chronic diastolic (congestive) heart failure; J18.1 Lobar pneumonia, unspecified organism; J44.0 Chronic obstructive pulmonary disease with (acute) lower respiratory infection; J44.1 Chronic obstructive pulmonary disease with (acute) exacerbation; N17.9 Acute kidney failure, unspecified; N18.4 Chronic kidney disease, stage 4 (severe); I70.1 Atherosclerosis of renal artery; M17.11 Unilateral primary osteoarthritis, right knee; R09.02 Hypoxemia; S06.6X0D Traumatic subarachnoid hemorrhage without loss of consciousness, subsequent encounter; T38.0X5A Adverse effect of glucocorticoids and synthetic analogues, initial encounter; X58.XXXD Exposure to other specified factors, subsequent encounter; Z79.4 Long term (current) use of insulin; Z87.891 Personal history of nicotine dependence; J30.2 Other seasonal allergic rhinitis; M19.90 Unspecified osteoarthritis, unspecified site; Z79.899 Other long term (current) drug therapy; R25.1 Tremor, unspecified; D63.8 Anemia in other chronic diseases classified elsewhere; E11.22 Type 2 diabetes mellitus with diabetic chronic kidney disease; E11.40 Type 2 diabetes mellitus with diabetic neuropathy, unspecified; E11.51 Type 2 diabetes mellitus with diabetic peripheral angiopathy without gangrene; E11.65 Type 2 diabetes mellitus with hyperglycemia; E78.00 Pure hypercholesterolemia, unspecified; G89.29 Other chronic pain; I27.20 Pulmonary hypertension, unspecified; E86.0 Dehydration

== ENCOUNTER 2019-03-04 16:38 | Inpatient (IN) | payer MEDICARE, OTHER ==
[2019-03-04] MEDS ORDERED: Sodium Chloride 0.9% 500 ML IV STA (16:49)
--- NOTE | 2019-03-04 16:49 | ED PDOC ---
HPI: General Adult Time Seen by Provider: 03/04/19 16:46 Chief Complaint (Nursing): Abnormal Labs Chief Complaint (Provider): Anemia History Per: Patient History/Exam Limitations: no limitations Onset/Duration Of Symptoms: Days (today) Additional Complaint(s): Pt. at rehab for deconditioning. She has been getting iron infusion for 3 days and today hg was 6.3 so sent to the ER. Pt. states she has mild general weakness and mild dizziness. No chest pain, headaches, nausea, vomit, diarrhea, or any bleeding. States she is always short of breath and is not new recently. Past Medical History Reviewed: Nursing Documentation, Vital Signs Vital Signs: Last Vital Signs Temp 98.2 F 03/04/19 16:41 Pulse 80 03/04/19 16:41 Resp 16 03/04/19 16:41 BP 138/63 03/04/19 16:41 Pulse Ox 95 03/04/19 16:41 - Medical History PMH: Anemia, Arthritis (RIGHT KNEE), CHF, COPD, Diabetes, HTN, Hypercholesterolemia, Peripheral Edema (PRESENTLY), Chronic Kidney Disease (CKD STATES KIDNEYS 38PERCENT PER PT) - Surgical History Surgical History: Tonsillectomy - Family History Family History: States: Unknown Family Hx, Diabetes, Hypertension - Social History Current smoker - smoking cessation education provided: No - Immunization History Hx Tetanus Toxoid Vaccination: Yes Hx Influenza Vaccination: No Hx Pneumococcal Vaccination: Yes - Home Medications Home Medications: Ambulatory Orders Medication Instructions Recorded Atorvastatin [Lipitor] 80 mg PO DAILY #30 tab 08/21/17 Losartan [Cozaar] 100 mg PO DAILY #30 tab 08/21/17 amLODIPine [Norvasc] 10 mg PO DAILY #30 tab 08/21/17 Ezetimibe [Zetia] 10 mg PO BID 11/14/17 Furosemide [Lasix] 40 mg PO DAILY 11/14/17 Amitriptyline [Elavil] 25 mg PO HS tab 11/30/17 Fluticasone Propionate [Flonase] 1 spr SONIA BID bottle 11/30/17 Gabapentin [Neurontin] 1,200 cap PO TID 05/19/18 GlipiZIDE [Glucotrol] 5 tab PO DAILY 05/19/18 Insulin Glargine,Hum.rec.anlog 50 unit SC ONCE 05/19/18 [Lantus] Insulin Lispro [Humalog (Insulin 9 unit SQ WM 09/06/18 Lispro)] Clopidogrel [Plavix] 75 mg PO DAILY tab 02/17/19 Enoxaparin [Lovenox] 30 mg SC DAILY syr 02/17/19 Pantoprazole [Protonix EC Tab] 40 mg PO DAILY ect 02/17/19 Acetaminophen [Tylenol] 2 cap PO Q4 PRN 03/04/19 Acetaminophen [Tylenol] 2 cap PO Q4 PRN 03/04/19 Albuterol/Ipratropium [Duoneb 3 3 ml INH Q8 03/04/19 mg/0.5 mg (3 ml) UD] Aspirin [Ecotrin] 1 tab PO DAILY 03/04/19 Benzocaine/Menthol [Cepacol Sore 1 katy PO Q4 PRN 03/04/19 Throat] Ergocalciferol [Drisdol] 50,000 iu PO QWK 03/04/19 Fluticasone/Vilanterol 100/25 1 puff INH DAILY 03/04/19 [Breo Ellipta 100-25 MCG INH] Iron Sucrose [Venofer] 100 mg IV DAILY 03/04/19 Loperamide HCl [Imodium A-D] 1 cap PO Q6H PRN 03/04/19 Losartan [Cozaar] 1 tab PO HS 03/04/19 Pregabalin [Lyrica] 1 cap PO Q12 03/04/19 Spironolactone [Aldactone] 25 mg PO DAILY 03/04/19 Vit B Comp No.3/Folic/C/Biotin 1 tab PO DAILY 03/04/19 [[facility] Hold-Briseida Rx Tablet] hydrALAZINE [Apresoline] 50 mg PO Q8 03/04/19 traMADol [Ultram] 50 mg PO Q8 PRN 03/04/19 - Allergies Allergies/Adverse Reactions: Allergies Allergy/AdvReac Type Severity Reaction Status Date / Time No Known Allergies Allergy Verified 03/04/19 16:41 Review of Systems ROS Statement: Except As Marked, All Systems Reviewed And Found Negative Constitutional: Positive for: Weakness Respiratory: Positive for: Shortness of Breath Neurological: Positive for: Weakness, Dizziness Physical Exam - Reviewed Nursing Documentation Reviewed: Yes Vital Signs Reviewed: Yes - Physical Exam Appears: Positive for: Uncomfortable Head Exam: Positive for: ATRAUMATIC, NORMAL INSPECTION, NORMOCEPHALIC Skin: Positive for: Normal Color, Warm, DRY Eye Exam: Positive for: EOMI, Normal appearance, PERRL ENT: Positive for: Normal ENT Inspection Neck: Positive for: Normal, Painless ROM Cardiovascular/Chest: Positive for: Regular Rate, Rhythm Respiratory: Positive for: CNT, Normal Breath Sounds Gastrointestinal/Abdominal: Positive for: Normal Exam, Soft. Negative for: Tenderness Back: Positive for: Normal Inspection. Negative for: L CVA Tenderness, R CVA Tenderness Extremity: Positive for: Normal ROM. Negative for: Tenderness, Pedal Edema Neurological/Psych: Positive for: Awake, Alert, Normal Tone - Laboratory Results Result Diagrams: 03/04/19 17:19 03/04/19 17:19 Interpretation Of Abn Labs: 6.6 hg - ECG ECG: Positive for: Interpreted By Me, Viewed By Me ECG Rhythm: Positive for: Sinus Rhythm, Premature Ventricular Contraction O2 Sat by Pulse Oximetry: 95 Pulse Ox Interpretation: Normal - Progress ED Course And Treament: 1745: Stable. Pending Hg. No active bleeding. Continue fluids. 184: Stable. Dr. Wayne to admit. AAOx3. Pain free. - Critical Care Total Time (In Min): 30 Documented Critical Care: Time excludes all time spent performint seperately billable procedures Disposition - Clinical Impression Clinical Impression: Anemia - Patient ED Disposition Is Patient to be Admitted: Yes Counseled Patient/Family Regarding: Studies Performed, Diagnosis - Disposition Disposition Time: 16:45 Condition: FAIR - Pt Status Changed To: Hospital Disposition Of: Inpatient - Admit Certification Admit to Inpatient:: After my assessment, the patient will require hospitalization for at least two midnights. This is because of the severity of symptoms shown, intensity of services needed, and/or the medical risk in this patient being treated as an outpatient. - POA Present On Arrival: None
[2019-03-04 17:30] LABS: BASO % 0.5 % (0.0-2.0); EOS # 0.2 K/uL (0.0-0.7); HEMOGLOBIN 6.6 g/dL (12.0-16.0); LYMPH # 0.9 K/uL (1.0-4.3); LYMPH % 15.4 % (20.0-40.0); MEAN CELL VOLUME 85.3 fl (81.0-99.0); MEAN CORPUSCULAR HEMOGLOBIN 28.8 pg (27.0-31.0); MEAN CORPUSCULAR HGB CONC 33.7 g/dL (33.0-37.0); MEAN PLATELET VOLUME 7.9 fl (7.2-11.7); MONO # 0.5 K/uL (0.0-0.8); NEUT # 4.4 K/uL (1.8-7.0); NEUT % 73.1 % (50.0-75.0); NRBC % 0.3 % (0.0-0.0); RBC 2.31 Mil/uL (3.80-5.20); RED CELL DISTRIBUTION WIDTH 16.9 % (11.5-14.5); WHITE BLOOD COUNT 6.1 K/uL (4.8-10.8)
[2019-03-04 17:31] LABS: INR 1.1; PROTHROMBIN TIME 12.4 Seconds (9.8-13.1)
[2019-03-04 17:34] LABS: PARTIAL THROMBOPLASTIN TIME 31.1 Seconds (25.6-37.1)
[2019-03-04 17:55] LABS: ALB/GLOB RATIO 1.1 (1.0-2.1); ALBUMIN 3.8 g/dL (3.5-5.0); ALT/SGPT 53 U/L (9-52); AST/SGOT 42 U/L (14-36); BLOOD UREA NITROGEN 29 mg/dl (7-17); CALCIUM 8.6 mg/dL (8.4-10.2); GFR NON-AFRICAN AMERICAN 24
--- NOTE | 2019-03-04 18:18 | CP.PCM.HP ---
<Dayton Modi - Last Filed: 03/04/19 22:14> History of Present Illness - History of Present Illness History of Present Illness: 73 F PMH of HTN, CKD stage 3B, IDDM, renal artery stenosis, s/p stent in Jul, peripheral arterial disease, and recent SAH 01/31 admitted to [facility]. Also recently admitted for COPD/CHF exacerbation and pneumonia was sent to [facility] for rehab. Pt reports that labs were drawn and was sent here. She denies weakness, dizziness, Bleed from: vagina, bowel or hematemesis. "I feel fine." Denies weakness. PMD: [facility] Cardio: Dr. Romano PMHx: HTN, CKD stage 3B, IDDM, renal artery stenosis, s/p stent in Jul, peripheral arterial disease, SAH 01/31 Medications: reconciled Allergies: NKDA PSHx: former smoker, quit 5 years ago. 2 PPD smoker -11 pack years, denies EtOH and illicit drug use Surgical Hx: renal artery stent placement Jul 2017, angioplasty of right f emoral artery. Family Hx: unknown Next of Kin: Farhana Present on Admission - Present on Admission Any Indicators Present on Admission: Yes History of Uncontrolled Diabetes: Yes Review of Systems - Cardiovascular Cardiovascular: absent: Chest Pain - Respiratory Respiratory: absent: Dyspnea - Gastrointestinal Gastrointestinal: absent: Abdominal Pain - Reproductive: Female Reproductive:Female: As Per HPI - Musculoskeletal Musculoskeletal: As Per HPI - Neurological Neurological: As Per HPI Past Patient History - Past Medical History & Family History Past Medical History?: Yes - Past Social History Smoking Status: Former Smoker Alcohol: None Drugs: Denies Home Situation {Lives}: Alone - CARDIAC Hx Congestive Heart Failure: Yes Hx Hypercholesterolemia: Yes Hx Hypertension: Yes Hx Peripheral Edema: Yes (PRESENTLY) - PULMONARY Hx Chronic Obstructive Pulmonary Disease (COPD): Yes - NEUROLOGICAL Hx Neurological Disorder: No - HEENT Hx HEENT Problems: Yes (SEASONAL ALLERGIES) - RENAL Hx Chronic Kidney Disease: Yes (CKD STATES KIDNEYS 38PERCENT PER PT) - ENDOCRINE/METABOLIC Hx Endocrine Disorders: Yes Hx Diabetes Mellitus Type 2: Yes - HEMATOLOGICAL/ONCOLOGICAL Hx Anemia: Yes - INTEGUMENTARY Hx Dermatological Problems: No - MUSCULOSKELETAL/RHEUMATOLOGICAL Hx Arthritis: Yes (RIGHT KNEE) - GASTROINTESTINAL Hx Gastrointestinal Disorders: No - GENITOURINARY/GYNECOLOGICAL Hx Genitourinary Disorders: No - PSYCHIATRIC Hx Psychophysiologic Disorder: No Hx Substance Use: No - SURGICAL HISTORY Hx Tonsillectomy: Yes - ANESTHESIA Hx Anesthesia: Yes Hx Anesthesia Reactions: No Hx Malignant Hyperthermia: No Meds Allergies/Adverse Reactions: Allergies Allergy/AdvReac Type Severity Reaction Status Date / Time No Known Allergies Allergy Verified 03/04/19 16:41 Physical Exam - Constitutional Appears: No Acute Distress - Eye Exam Eye Exam: EOMI - ENT Exam ENT Exam: Mucous Membranes Moist - Respiratory Exam Additional comments: Mild L lower lobe crackles - Cardiovascular Exam Cardiovascular Exam: +S1, +S2 - GI/Abdominal Exam GI & Abdominal Exam: Normal Bowel Sounds, Soft. absent: Tenderness - Extremities Exam Extremities exam: Negative for: calf tenderness Additional comments: cap refill <2 seconds - Neurological Exam Neurological exam: Alert, CN II-XII Intact, Oriented x3 - Psychiatric Exam Psychiatric exam: Normal Affect, Normal Mood Results - Vital Signs Recent Vital Signs: Last Vital Signs Temp 98.2 F 03/04/19 16:41 Pulse 80 03/04/19 16:41 Resp 16 03/04/19 16:41 BP 138/63 03/04/19 16:41 Pulse Ox 95 03/04/19 17:02 - Labs Result Diagrams: 03/04/19 17:19 03/04/19 17:19 Labs: Laboratory Results - last 24 hr 03/04/19 03/04/19 03/04/19 17:19 17:19 17:19 WBC 6.1 RBC 2.31 L Hgb 6.6 L Hct 19.7 L MCV 85.3 MCH 28.8 MCHC 33.7 RDW 16.9 H Plt Count 133 MPV 7.9 Neut % (Auto) 73.1 Lymph % (Auto) 15.4 L Boyle % (Auto) 8.0 Eos % (Auto) 3.0 Baso % (Auto) 0.5 Neut # (Auto) 4.4 Lymph # (Auto) 0.9 L Boyle # (Auto) 0.5 Eos # (Auto) 0.2 Baso # (Auto) 0.0 PT 12.4 INR 1.1 APTT 31.1 Sodium 135 Potassium 3.7 Chloride 96 L Carbon Dioxide 27 Anion Gap 16 BUN 29 H Creatinine 2.0 H Est GFR ( Amer) 30 Est GFR (Non-Af Amer) 24 Random Glucose 139 H Calcium 8.6 Total Bilirubin 0.7 AST 42 H D ALT 53 H D Alkaline Phosphatase 117 Troponin I < 0.0120 Total Protein 7.2 Albumin 3.8 Globulin 3.4 Albumin/Globulin Ratio 1.1 Crossmatch BBK History Checked 03/04/19 17:30 WBC RBC Hgb Hct MCV MCH MCHC RDW Plt Count MPV Neut % (Auto) Lymph % (Auto) Boyle % (Auto) Eos % (Auto) Baso % (Auto) Neut # (Auto) Lymph # (Auto) Boyle # (Auto) Eos # (Auto) Baso # (Auto) PT INR APTT Sodium Potassium Chloride Carbon Dioxide Anion Gap BUN Creatinine Est GFR ( Amer) Est GFR (Non-Af Amer) Random Glucose Calcium Total Bilirubin AST ALT Alkaline Phosphatase Troponin I Total Protein Albumin Globulin Albumin/Globulin Ratio Crossmatch See Detail BBK History Checked Patient has bt Assessment & Plan - Assessment and Plan (Free Text) Assessment: 73 F PMH of HTN, CKD stage 3B, IDDM, renal artery stenosis, s/p stent in Jul, peripheral arterial disease, and recent SAH 01/31 admitted for anemia Plan: Anemia -Chronic -H/H: 6.6/19.7 -s/p venofer infusions -Transfuse 2 units PRBC -f/u cbc -monitor sxs CHF -Diastolic dysfunction -ECHO: 11/2018 EF 60-65% -c/w lasix -crackles heard on exam; f/u CXR CKD stage 4 -BUN 29; Cr: 2.0; GFR: 24 -monitor HTN -c/w hydralazine, losartan -monitor vitals IDDM -c/w glipizide -accuchecks -hypoglycemia protocol -ICS medium dose PAD with neuropathy -c/w atorvastatin, Azetimibe, gabapentin DVT prophylaxis -SCD -pantoprazole Case and plan d/w Dr. Tone Modi MD PGY2 <Kofi Wayne D - Last Filed: 03/05/19 16:01> Results - Vital Signs Recent Vital Signs: Last Vital Signs Temp 97.8 F 03/05/19 12:27 Pulse 75 03/05/19 12:27 Resp 18 03/05/19 12:27 BP 130/56 L 03/05/19 12:27 Pulse Ox 98 03/05/19 12:27 - Labs Result Diagrams: 03/05/19 04:30 03/05/19 04:30 Labs: Laboratory Results - last 24 hr 03/04/19 03/04/19 03/04/19 17:19 17:19 17:19 WBC 6.1 RBC 2.31 L Hgb 6.6 L Hct 19.7 L MCV 85.3 MCH 28.8 MCHC 33.7 RDW 16.9 H Plt Count 133 MPV 7.9 Neut % (Auto) 73.1 Lymph % (Auto) 15.4 L Boyle % (Auto) 8.0 Eos % (Auto) 3.0 Baso % (Auto) 0.5 Neut # (Auto) 4.4 Lymph # (Auto) 0.9 L Boyle # (Auto) 0.5 Eos # (Auto) 0.2 Baso # (Auto) 0.0 PT 12.4 INR 1.1 APTT 31.1 Sodium 135 Potassium 3.7 Chloride 96 L Carbon Dioxide 27 Anion Gap 16 BUN 29 H Creatinine 2.0 H Est GFR ( Amer) 30 Est GFR (Non-Af Amer) 24 POC Glucose (mg/dL) Random Glucose 139 H Calcium 8.6 Total Bilirubin 0.7 AST 42 H D ALT 53 H D Alkaline Phosphatase 117 Troponin I < 0.0120 Total Protein 7.2 Albumin 3.8 Globulin 3.4 Albumin/Globulin Ratio 1.1 Urine Color Urine Clarity Urine pH Ur Specific [place] Urine Protein Urine Glucose (UA) Urine Ketones Urine Blood Urine Nitrate Urine Bilirubin Urine Urobilinogen Ur Leukocyte Esterase Urine RBC (Auto) Urine WBC Clumps (Auto) Urine Microscopic WBC Ur Squamous Epith Cells Urine Bacteria Blood Type Antibody Screen Crossmatch BBK History Checked 03/04/19 03/04/19 03/04/19 17:30 18:34 22:17 WBC RBC Hgb Hct MCV MCH MCHC RDW Plt Count MPV Neut % (Auto) Lymph % (Auto) Boyle % (Auto) Eos % (Auto) Baso % (Auto) Neut # (Auto) Lymph # (Auto) Boyle # (Auto) Eos # (Auto) Baso # (Auto) PT INR APTT Sodium Potassium Chloride Carbon Dioxide Anion Gap BUN Creatinine Est GFR ( Amer) Est GFR (Non-Af Amer) POC Glucose (mg/dL) 151 H 118 H Random Glucose Calcium Total Bilirubin AST ALT Alkaline Phosphatase Troponin I Total Protein Albumin Globulin Albumin/Globulin Ratio Urine Color Urine Clarity Urine pH Ur Specific [place] Urine Protein Urine Glucose (UA) Urine Ketones Urine Blood Urine Nitrate Urine Bilirubin Urine Urobilinogen Ur Leukocyte Esterase Urine RBC (Auto) Urine WBC Clumps (Auto) Urine Microscopic WBC Ur Squamous Epith Cells Urine Bacteria Blood Type O POSITIVE Antibody Screen Negative Crossmatch See Detail BBK History Checked Patient has bt 03/05/19 03/05/19 03/05/19 04:00 04:30 04:30 WBC 5.9 RBC 2.88 L Hgb 8.3 L Hct 24.4 L MCV 84.7 MCH 28.8 MCHC 33.9 RDW 17.7 H Plt Count 117 L MPV 8.2 Neut % (Auto) 73.7 Lymph % (Auto) 12.2 L Boyle % (Auto) 8.5 Eos % (Auto) 4.9 H Baso % (Auto) 0.7 Neut # (Auto) 4.3 Lymph # (Auto) 0.7 L Boyle # (Auto) 0.5 Eos # (Auto) 0.3 Baso # (Auto) 0.0 PT INR APTT Sodium 136 Potassium 3.9 Chloride 99 Carbon Dioxide 27 Anion Gap 14 BUN 23 H Creatinine 1.7 H Est GFR ( Amer) 36 Est GFR (Non-Af Amer) 30 POC Glucose (mg/dL) Random Glucose 130 H Calcium 8.3 L Total Bilirubin AST ALT Alkaline Phosphatase Troponin I Total Protein Albumin Globulin Albumin/Globulin Ratio Urine Color Yellow Urine Clarity Cloudy Urine pH 6.0 Ur Specific [place] 1.009 Urine Protein Negative Urine Glucose (UA) Neg Urine Ketones Negative Urine Blood Small Urine Nitrate Negative Urine Bilirubin Negative Urine Urobilinogen 0.2-1.0 Ur Leukocyte Esterase Mod Urine RBC (Auto) 3 Urine WBC Clumps (Auto) Few H Urine Microscopic WBC 142 H Ur Squamous Epith Cells 2 Urine Bacteria Many H Blood Type Antibody Screen Crossmatch BBK History Checked 03/05/19 03/05/19 05:53 11:03 WBC RBC Hgb Hct MCV MCH MCHC RDW Plt Count MPV Neut % (Auto) Lymph % (Auto) Boyle % (Auto) Eos % (Auto) Baso % (Auto) Neut # (Auto) Lymph # (Auto) Boyle # (Auto) Eos # (Auto) Baso # (Auto) PT INR APTT Sodium Potassium Chloride Carbon Dioxide Anion Gap BUN Creatinine Est GFR ( Amer) Est GFR (Non-Af Amer) POC Glucose (mg/dL) 143 H 248 H Random Glucose Calcium Total Bilirubin AST ALT Alkaline Phosphatase Troponin I Total Protein Albumin Globulin Albumin/Globulin Ratio Urine Color Urine Clarity Urine pH Ur Specific [place] Urine Protein Urine Glucose (UA) Urine Ketones Urine Blood Urine Nitrate Urine Bilirubin Urine Urobilinogen Ur Leukocyte Esterase Urine RBC (Auto) Urine WBC Clumps (Auto) Urine Microscopic WBC Ur Squamous Epith Cells Urine Bacteria Blood Type Antibody Screen Crossmatch BBK History Checked Attending/Attestation - Attestation I have personally seen and examined this patient.: Yes I have fully participated in the care of the patient.: Yes I have reviewed all pertinent clinical information: Yes Notes (Text): 03/05/19 16:00 Patient seen and examined with resident. Case discussed and agreed with assessment and plan of management.
[2019-03-04] MEDS ORDERED: Dextrose 50% SYRINGE Inj (50 ml) IV PRN (22:27)
[2019-03-04] MEDS ORDERED: Glucagon Recombinant 1 mg Inj IM PRN (22:27)
[2019-03-05 04:21] LABS: SQUAMOUS EPITHIAL 2 /hpf (0-5); URINE BACTERIA MANY (<OCC); URINE BILIRUBIN NEGATIVE (NEGATIVE); URINE BLOOD SMALL (NEGATIVE); URINE CLARITY CLOUDY (Clear); URINE COLOR YELLOW (YELLOW); URINE GLUCOSE (UA) NEG (NEGATIVE); URINE LEUKOCYTE ESTERASE MOD Leu/uL (Negative); URINE PROTEIN NEGATIVE (NEGATIVE); URINE UROBILINOGEN 0.2-1.0 mg/dL (0.2-1.0); WBC CLUMPS FEW /hpf
[2019-03-05 06:40] LABS: BASO % 0.7 % (0.0-2.0); EOS # 0.3 K/uL (0.0-0.7); EOS % 4.9 % (0.0-4.0); HEMOGLOBIN 8.3 g/dL (12.0-16.0); LYMPH # 0.7 K/uL (1.0-4.3); LYMPH % 12.2 % (20.0-40.0); MEAN CELL VOLUME 84.7 fl (81.0-99.0); MEAN CORPUSCULAR HEMOGLOBIN 28.8 pg (27.0-31.0); MEAN CORPUSCULAR HGB CONC 33.9 g/dL (33.0-37.0); MEAN PLATELET VOLUME 8.2 fl (7.2-11.7); MONO # 0.5 K/uL (0.0-0.8); MONO % 8.5 % (0.0-10.0); NEUT # 4.3 K/uL (1.8-7.0); NEUT % 73.7 % (50.0-75.0); NRBC % 0.1 % (0.0-0.0); RBC 2.88 Mil/uL (3.80-5.20); RED CELL DISTRIBUTION WIDTH 17.7 % (11.5-14.5); WHITE BLOOD COUNT 5.9 K/uL (4.8-10.8)
[2019-03-05 07:02] LABS: CALCIUM 8.3 mg/dL (8.4-10.2)
[2019-03-05] MEDS: Insulin Regular 100 units/ml SC SCH ×4 (09:04→21:53)
[2019-03-05] MEDS: Pantoprazole 40 mg EC Tab PO SCH (09:07)
--- NOTE | 2019-03-05 10:23 | CARD ---
APPROVED REPORT Date of service: 03/04/2019 EKG Measurement Heart [id number] <Conclusion> Sinus rhythm with occasional premature ventricular complexes Otherwise normal ECG
--- NOTE | 2019-03-05 11:56 | CP.PCM.PN ---
<Marci Echevarria - Last Filed: 03/05/19 12:27> Subjective - Date & Time of Evaluation Date of Evaluation: 03/05/19 Time of Evaluation: 11:56 - Subjective Subjective: Patient seen and examined bedside. No new complaints, denies fever, bloody stool and hematuria. Agitated but verbally confirmed understanding of assessment and plan. Objective - Vital Signs/Intake and Output Vital Signs (last 24 hours): Temp Pulse Resp BP Pulse Ox 97.6 F 72 18 134/66 99 03/05/19 08:18 03/05/19 09:03 03/05/19 08:18 03/05/19 09:06 03/05/19 08:18 Intake and Output: 03/05/19 03/05/19 06:59 18:59 Intake Total 710 Balance 710 - Medications Medications: Current Medications Atorvastatin Calcium (Lipitor) 80 mg PO DAILY [facility] Last Admin: 03/05/19 09:06 Dose: 80 mg Cyanocobalamin (Vitamin B12 1000 Mcg/Ml Inj) 1,000 mcg IM DAILY [facility] Stop: 03/06/19 09:01 Last Admin: 03/05/19 11:09 Dose: 1,000 mcg Dextrose (Dextrose 50% Inj) 0 ml IV STAT PRN; Protocol PRN Reason: Hypoglycemia Protocol Dextrose (Glutose 15) 0 gm PO ONCE PRN; Protocol PRN Reason: Hypoglycemia Protocol Ezetimibe (Zetia) 10 mg PO BID [facility] Last Admin: 03/05/19 09:07 Dose: 10 mg Fluticasone Propionate (Flonase) 1 spr SONIA BID [facility] Last Admin: 03/05/19 09:04 Dose: 1 spr Furosemide (Lasix) 40 mg PO DAILY [facility] Last Admin: 03/05/19 09:06 Dose: 40 mg Glipizide (Glucotrol) 5 mg PO DAILY [facility] Last Admin: 03/05/19 09:04 Dose: 5 mg Glucagon (Glucagen Diagnostic Kit) 0 mg IM STAT PRN; Protocol PRN Reason: Hypoglycemia Protocol Hydralazine HCl (Apresoline) 50 mg PO Q8 [facility] Last Admin: 03/05/19 09:03 Dose: 50 mg Iron Sucrose 100 mg/ Sodium (Chloride) 105 mls @ 105 mls/hr IVPB DAILY [facility] Stop: 03/06/19 09:59 Last Admin: 03/05/19 11:31 Dose: 105 mls/hr Ceftriaxone Sodium 1 gm/ (Sodium Chloride) 100 mls @ 100 mls/hr IVPB DAILY [facility]; Protocol Last Admin: 03/05/19 11:10 Dose: 100 mls/hr Insulin Human Regular (Humulin R) 0 units SC ACHS [facility]; Protocol Last Admin: 03/05/19 09:04 Dose: Not Given Losartan Potassium (Cozaar) 100 mg PO DAILY [facility] Last Admin: 03/05/19 09:03 Dose: 100 mg Pantoprazole Sodium (Protonix Ec Tab) 40 mg PO DAILY [facility] Last Admin: 03/05/19 09:07 Dose: 40 mg Pregabalin (Lyrica) 75 mg PO DAILY [facility] - Labs Labs: 03/05/19 04:30 03/05/19 04:30 PT 12.4 Seconds (9.8-13.1) 03/04/19 17:19 INR 1.1 03/04/19 17:19 APTT 31.1 Seconds (25.6-37.1) 03/04/19 17:19 - Constitutional Appears: No Acute Distress, Agitated - Respiratory Exam Respiratory Exam: NORMAL BREATHING PATTERN. absent: Respiratory Distress - Cardiovascular Exam Cardiovascular Exam: REGULAR RHYTHM - GI/Abdominal Exam GI & Abdominal Exam: absent: Guarding, Tenderness - Neurological Exam Neurological Exam: Alert, Awake, Oriented x3 - Psychiatric Exam Psychiatric exam: Agitated - Skin Skin Exam: Dry, Intact, Pallor Assessment and Plan - Assessment and Plan (Free Text) Assessment: 73 F PMH of HTN, CKD stage 3B, IDDM, renal artery stenosis, s/p stent in Jul, peripheral arterial disease, and recent SAH 3/5 admitted for anemia. Hg/Hct 8.3/24.4 s/p 2 units PRBC; admission Hg/Hct 6.6/19.7 Plan: Anemia -Chronic -H/H: 8.3/24.4 (admission 6.6/19.7) -s/p 2 units PRBC -s/p venofer infusions at [facility] -GI consult, input and recommendations appreciated -Follow-up fecal occult blood -Pantoprazole 40mg daily CHF -Diastolic dysfunction -ECHO: 11/2018 EF 60-65% -c/w lasix 40mg daily -crackles heard on exam; f/u CXR CKD stage 4 -BUN 29; Cr: 2.0; GFR: 24 -Vit B 12 1000 daily x 2 -monitor UTI -UA: many bacteria, 142 WBC, mod Leuk esterase -f/u culture -Ceftriaxone 1gm daily, (Day #1) HTN -c/w hydralazine 50mg Q8H -c/w losartan 100 mg daily -monitor vitals IDDM -c/w glipizide 5mg daily -Accuchecks -Hypoglycemia protocol -Sliding scale medium dose PAD with neuropathy -c/w atorvastatin 80 mg daily -c/w Azetimibe 10 mg BID -c/w Lyrica 75 mg daily DVT Prophylaxis -SCD <SpragueBaileeDottieviola Beltrán - Last Filed: 03/05/19 15:54> Objective - Vital Signs/Intake and Output Vital Signs (last 24 hours): Temp Pulse Resp BP Pulse Ox 97.8 F 75 18 130/56 L 98 03/05/19 12:27 03/05/19 12:27 03/05/19 12:27 03/05/19 12:27 03/05/19 12:27 Intake and Output: 03/05/19 03/05/19 06:59 18:59 Intake Total 710 Balance 710 - Medications Medications: Current Medications Atorvastatin Calcium (Lipitor) 80 mg PO DAILY [facility] Last Admin: 03/05/19 09:06 Dose: 80 mg Cyanocobalamin (Vitamin B12 1000 Mcg/Ml Inj) 1,000 mcg IM DAILY [facility] Stop: 03/06/19 09:01 Last Admin: 03/05/19 11:09 Dose: 1,000 mcg Dextrose (Dextrose 50% Inj) 0 ml IV STAT PRN; Protocol PRN Reason: Hypoglycemia Protocol Dextrose (Glutose 15) 0 gm PO ONCE PRN; Protocol PRN Reason: Hypoglycemia Protocol Ezetimibe (Zetia) 10 mg PO BID [facility] Last Admin: 03/05/19 09:07 Dose: 10 mg Fluticasone Propionate (Flonase) 1 spr SONIA BID [facility] Last Admin: 03/05/19 09:04 Dose: 1 spr Furosemide (Lasix) 40 mg PO DAILY [facility] Last Admin: 03/05/19 09:06 Dose: 40 mg Glipizide (Glucotrol) 5 mg PO DAILY [facility] Last Admin: 03/05/19 09:04 Dose: 5 mg Glucagon (Glucagen Diagnostic Kit) 0 mg IM STAT PRN; Protocol PRN Reason: Hypoglycemia Protocol Hydralazine HCl (Apresoline) 50 mg PO Q8 [facility] Last Admin: 03/05/19 09:03 Dose: 50 mg Iron Sucrose 100 mg/ Sodium (Chloride) 105 mls @ 105 mls/hr IVPB DAILY [facility] Stop: 03/06/19 09:59 Last Admin: 03/05/19 11:31 Dose: 105 mls/hr Ceftriaxone Sodium 1 gm/ (Sodium Chloride) 100 mls @ 100 mls/hr IVPB DAILY [facility]; Protocol Last Admin: 03/05/19 11:10 Dose: 100 mls/hr Insulin Human Regular (Humulin R) 0 units SC ACHS [facility]; Protocol Last Admin: 03/05/19 13:11 Dose: 4 unit Losartan Potassium (Cozaar) 100 mg PO DAILY [facility] Last Admin: 03/05/19 09:03 Dose: 100 mg Pantoprazole Sodium (Protonix Ec Tab) 40 mg PO DAILY [facility] Last Admin: 03/05/19 09:07 Dose: 40 mg Pregabalin (Lyrica) 75 mg PO DAILY [facility] - Labs Labs: 03/05/19 04:30 03/05/19 04:30 PT 12.4 Seconds (9.8-13.1) 03/04/19 17:19 INR 1.1 03/04/19 17:19 APTT 31.1 Seconds (25.6-37.1) 03/04/19 17:19 Attending/Attestation - Attestation I have personally seen and examined this patient.: Yes I have fully participated in the care of the patient.: Yes I have reviewed all pertinent clinical information, including history, physical exam and plan: Yes Notes (Text): Anemia , worsening of chronic anemia need to r/o GI bleed - no overt signs of bleeding - FOBT - GI consult - cont PPI - Pt transfused 2 units PRBC Hgb went up to 8.3 from 6.6 - start Cyanocobalamin and IV Venofer UTI - UA showed pyuria, + leukoest - Urine c/s - empirically start IV Ceftriaxone CKD Stage IV - pt has baseline CRea of 2 - will monitor PAD - Plavix and ASA on hold for now, will restart as soon as GIB is ruled out DM type II with Insulin -cont accucheck -cont Glipizide - Pt on Lantus 50 units q hs , will restart low dose long acting Insulin for now 15 units as sugar not that high CHF , chronic diastolic dysfunction cont Lasix, Hydralazine and Losartan
[2019-03-05 14:57] VITALS: BMI 30.7
[2019-03-05] MEDS: Benzocaine/Menthol (Cepacol) Lozenge PO PRN (20:15)
[2019-03-05] MEDS ORDERED: Insulin Detemir 100 Units/ml Inj SC SCH ×2 (22:00)
[2019-03-06] MEDS: Benzocaine/Menthol (Cepacol) Lozenge PO PRN ×2 (00:11→09:05)
[2019-03-06 06:00] LABS: BASO % 0.7 % (0.0-2.0); EOS # 0.3 K/uL (0.0-0.7); EOS % 5.4 % (0.0-4.0); HEMOGLOBIN 8.7 g/dL (12.0-16.0); LYMPH % 17.6 % (20.0-40.0); MEAN CELL VOLUME 86.3 fl (81.0-99.0); MEAN CORPUSCULAR HEMOGLOBIN 28.8 pg (27.0-31.0); MEAN CORPUSCULAR HGB CONC 33.4 g/dL (33.0-37.0); MEAN PLATELET VOLUME 8.2 fl (7.2-11.7); MONO # 0.6 K/uL (0.0-0.8); MONO % 10.7 % (0.0-10.0); NEUT # 3.8 K/uL (1.8-7.0); NEUT % 65.6 % (50.0-75.0); RBC 3.01 Mil/uL (3.80-5.20); RED CELL DISTRIBUTION WIDTH 17.5 % (11.5-14.5); WHITE BLOOD COUNT 5.7 K/uL (4.8-10.8)
[2019-03-06 06:28] LABS: ALB/GLOB RATIO 1.1 (1.0-2.1); ALBUMIN 3.4 g/dL (3.5-5.0); CALCIUM 8.6 mg/dL (8.4-10.2)
[2019-03-06] MEDS ORDERED: Ergocalciferol 50,000 Intl Units Cap PO SCH (08:45)
[2019-03-06] MEDS ORDERED: Albuterol-Ipratrop 3 mg / 0.5 (3 ml) UD INH SCH (09:00)
[2019-03-06] MEDS ORDERED: FLUTICASO IH SCH (09:00)
[2019-03-06] MEDS ORDERED: Multivitamin Vitamin B Complex (Nephro-Vite) Tab PO SCH (09:00)
[2019-03-06] MEDS ORDERED: SALMETEROL XINAFOATE IH SCH (09:00)
[2019-03-06] MEDS: Insulin Regular 100 units/ml SC SCH ×3 (09:07→17:54)
[2019-03-06] MEDS: Pantoprazole 40 mg EC Tab PO SCH (09:09)
[2019-03-06] MEDS ORDERED: FLUTICASONE PROPION IH SCH (10:15)
[2019-03-06] MEDS ORDERED: SALMETEROL IH SCH (10:15)
--- NOTE | 2019-03-06 15:34 | PQF ---
PROVIDER RESPONSE TEXT: Anemia of chronic kidney disease REVIEWER QUERY TEXT: Anemia Type Anemia is documented in the Medical Record. Please specify the cause (includes suspected or probable cause) Such as: -- Due to acute blood loss -- Due to chronic blood loss -- Due to iron deficiency -- Due to postoperative blood loss -- Due to chronic disease -- Other, please specify ER note includes; Pt. at rehab for deconditioning. She has been getting iron infusion for 3 days and today hg was 6.3 so sent to the ER. 03/05 Attending/Resident progress note includes: Anemia , worsening of chronic anemia need to r/o GI bl eed - no overt signs of bleeding - FOBT - GI consult - cont PPI - Pt transfused 2 units PRBC Hgb went up to 8.3 from 6.6 Stool OB: negative The patient's Clinical Indicators include: -- Query created by: Kina Lou on 03/06/2019 12:47 PM Electronically signed by: Kofi Wayne MD 03/06/2019 3:32 PM
--- NOTE | 2019-03-06 15:51 | CP.PCM.DIS ---
<Haily Cardona - Last Filed: 03/06/19 16:12> Provider - Provider Date of Admission: 03/04/19 16:58 Attending physician: Kofi Wayne MD Consults: 03/05/19 10:18 Gastroenterology Consult Routine Comment: Consulting Provider: Kenji Wheat Consulting Physician: Kenji Wheat Reason for Consult: H/H: 6.6/19.7 s/p venofer infusions Time Spent in preparation of Discharge (in minutes): 45 Hospital Course - Lab Results Lab Results: Most Recent Lab Values WBC 5.7 K/uL (4.8-10.8) 03/06/19 04:55 RBC 3.01 Mil/uL (3.80-5.20) L 03/06/19 04:55 Hgb 8.7 g/dL (12.0-16.0) L 03/06/19 04:55 Hct 26.0 % (34.0-47.0) L 03/06/19 04:55 MCV 86.3 fl (81.0-99.0) 03/06/19 04:55 MCH 28.8 pg (27.0-31.0) 03/06/19 04:55 MCHC 33.4 g/dL (33.0-37.0) 03/06/19 04:55 RDW 17.5 % (11.5-14.5) H 03/06/19 04:55 Plt Count 123 K/uL (130-400) L 03/06/19 04:55 MPV 8.2 fl (7.2-11.7) 03/06/19 04:55 Neut % (Auto) 65.6 % (50.0-75.0) 03/06/19 04:55 Lymph % (Auto) 17.6 % (20.0-40.0) L 03/06/19 04:55 [place] % (Auto) 10.7 % (0.0-10.0) H 03/06/19 04:55 Eos % (Auto) 5.4 % (0.0-4.0) H 03/06/19 04:55 Baso % (Auto) 0.7 % (0.0-2.0) 03/06/19 04:55 Neut # (Auto) 3.8 K/uL (1.8-7.0) 03/06/19 04:55 Lymph # (Auto) 1.0 K/uL (1.0-4.3) 03/06/19 04:55 [place] # (Auto) 0.6 K/uL (0.0-0.8) 03/06/19 04:55 Eos # (Auto) 0.3 K/uL (0.0-0.7) 03/06/19 04:55 Baso # (Auto) 0.0 K/uL (0.0-0.2) 03/06/19 04:55 PT 12.4 Seconds (9.8-13.1) 03/04/19 17:19 INR 1.1 03/04/19 17:19 APTT 31.1 Seconds (25.6-37.1) 03/04/19 17:19 Sodium 134 mmol/l (132-148) 03/06/19 04:55 Potassium 4.2 MMOL/L (3.6-5.0) 03/06/19 04:55 Chloride 99 mmol/L (98-107) 03/06/19 04:55 Carbon Dioxide 31 mmol/L (22-30) H 03/06/19 04:55 Anion Gap 8 (10-20) L 03/06/19 04:55 BUN 19 mg/dl (7-17) H 03/06/19 04:55 Creatinine 1.8 mg/dl (0.7-1.2) H 03/06/19 04:55 Est GFR ( Amer) 33 03/06/19 04:55 Est GFR (Non-Af Amer) 28 03/06/19 04:55 POC Glucose (mg/dL) 234 mg/dL (65-110) H 03/06/19 11:02 Random Glucose 121 mg/dL (65-105) H 03/06/19 04:55 Calcium 8.6 mg/dL (8.4-10.2) 03/06/19 04:55 Total Bilirubin 1.1 mg/dl (0.2-1.3) 03/06/19 04:55 AST 48 U/L (14-36) H 03/06/19 04:55 ALT 66 U/L (9-52) H D 03/06/19 04:55 Alkaline Phosphatase 97 U/L (38-126) 03/06/19 04:55 Troponin I < 0.0120 ng/mL (0.00-0.120) 03/04/19 17:19 Total Protein 6.5 G/DL (6.3-8.2) 03/06/19 04:55 Albumin 3.4 g/dL (3.5-5.0) L 03/06/19 04:55 Globulin 3.1 gm/dL (2.2-3.9) 03/06/19 04:55 Albumin/Globulin Ratio 1.1 (1.0-2.1) 03/06/19 04:55 Urine Color Yellow (YELLOW) 03/05/19 04:00 Urine Clarity Cloudy (Clear) 03/05/19 04:00 Urine pH 6.0 (5.0-8.0) 03/05/19 04:00 Ur Specific [place] 1.009 (1.003-1.030) 03/05/19 04:00 Urine Protein Negative mg/dL (NEGATIVE) 03/05/19 04:00 Urine Glucose (UA) Neg mg/dL (NEGATIVE) 03/05/19 04:00 Urine Ketones Negative mg/dL (NEGATIVE) 03/05/19 04:00 Urine Blood Small (NEGATIVE) 03/05/19 04:00 Urine Nitrate Negative (NEGATIVE) 03/05/19 04:00 Urine Bilirubin Negative (NEGATIVE) 03/05/19 04:00 Urine Urobilinogen 0.2-1.0 mg/dL (0.2-1.0) 03/05/19 04:00 Ur Leukocyte Esterase Mod [place]/uL (Negative) 03/05/19 04:00 Urine RBC (Auto) 3 /hpf (0-3) 03/05/19 04:00 Urine WBC Clumps (Auto) Few /hpf (NONE) H 03/05/19 04:00 Urine Microscopic WBC 142 /hpf (0-5) H 03/05/19 04:00 Ur Squamous Epith Cells 2 /hpf (0-5) 03/05/19 04:00 Urine Bacteria Many (<OCC) H 03/05/19 04:00 Stool Occult Blood Negative (NEGATIVE) 03/05/19 07:01 Blood Type O POSITIVE 03/04/19 17:30 Antibody Screen Negative 03/04/19 17:30 Crossmatch See Detail 03/04/19 17:30 BBK History Checked Patient has bt 03/04/19 17:30 - Hospital Course Hospital Course: 73 F PMH of HTN, CKD stage 3B, IDDM, renal artery stenosis, s/p stent in Jul, peripheral arterial disease, and recent SAH / admitted for asymptomatic anemia and UTI. Patient received 2 doses of IV antibiotics thus far. Patient was seen and examined this morning. Patient denies any fever, chills, shortness of breath or chest pain. Patient will be discharged to TCU for continuation of IV antibiotics. Asymptomatic Anemia(acute on Chronic) -H/H: 8.3/24.4 (admission 6.6/19.7) -s/p 2 units PRBC -Pantoprazole 40mg daily -Ferrous sulfate 325mg BID PO CHF -Diastolic dysfunction -ECHO: 11/2018 EF 60-65% -c/w lasix 40mg daily CKD stage 4 -Cont to monitor UTI -Ceftriaxone 1gm daily, (Day #2), cont for 7 more days HTN -c/w hydralazine 50mg Q8H -c/w losartan 100 mg daily IDDM -c/w glipizide 5mg daily -Accuchecks -Hypoglycemia protocol -Sliding scale medium dose PAD with neuropathy -c/w atorvastatin 80 mg daily -c/w Azetimibe 10 mg BID -c/w Lyrica 75 mg daily DVT Prophylaxis -SCD bc of anemia Discharge Exam - Head Exam Head Exam: ATRAUMATIC, NORMAL INSPECTION, NORMOCEPHALIC - Eye Exam Eye Exam: EOMI - ENT Exam ENT Exam: Mucous Membranes Moist - Respiratory Exam Respiratory Exam: NORMAL BREATHING PATTERN - Cardiovascular Exam Cardiovascular Exam: REGULAR RHYTHM, +S1, +S2 - GI/Abdominal Exam GI & Abdominal Exam: Normal Bowel Sounds, Soft. absent: Guarding, Rebound, Rigid, Tenderness - Neurological Exam Neurological exam: Alert, Oriented x3 - Psychiatric Exam Psychiatric exam: Normal Mood - Skin Skin Exam: Dry, Intact Discharge Plan - Discharge Medications Prescriptions: cefTRIAXone 1 gm [Rocephin 1 gram IVPB] 1 gm IVPB DAILY #7 bag Ferrous Sulfate 325 mg PO BID #60 tablet - Follow Up Plan Condition: FAIR Disposition: REHAB FACILITY/REHAB UNIT <Kofi Wayne - Last Filed: 03/06/19 17:08> Provider - Provider Date of Admission: 03/04/19 16:58 Attending physician: Kofi Wayne MD Consults: 03/05/19 10:18 Gastroenterology Consult Routine Comment: Consulting Provider: Kenji Wheat Consulting Physician: Kenji Wheat Reason for Consult: H/H: 6.6/19.7 s/p venofer infusions Hospital Course - Lab Results Lab Results: Most Recent Lab Values WBC 5.7 K/uL (4.8-10.8) 03/06/19 04:55 RBC 3.01 Mil/uL (3.80-5.20) L 03/06/19 04:55 Hgb 8.7 g/dL (12.0-16.0) L 03/06/19 04:55 Hct 26.0 % (34.0-47.0) L 03/06/19 04:55 MCV 86.3 fl (81.0-99.0) 03/06/19 04:55 MCH 28.8 pg (27.0-31.0) 03/06/19 04:55 MCHC 33.4 g/dL (33.0-37.0) 03/06/19 04:55 RDW 17.5 % (11.5-14.5) H 03/06/19 04:55 Plt Count 123 K/uL (130-400) L 03/06/19 04:55 MPV 8.2 fl (7.2-11.7) 03/06/19 04:55 Neut % (Auto) 65.6 % (50.0-75.0) 03/06/19 04:55 Lymph % (Auto) 17.6 % (20.0-40.0) L 03/06/19 04:55 [place] % (Auto) 10.7 % (0.0-10.0) H 03/06/19 04:55 Eos % (Auto) 5.4 % (0.0-4.0) H 03/06/19 04:55 Baso % (Auto) 0.7 % (0.0-2.0) 03/06/19 04:55 Neut # (Auto) 3.8 K/uL (1.8-7.0) 03/06/19 04:55 Lymph # (Auto) 1.0 K/uL (1.0-4.3) 03/06/19 04:55 [place] # (Auto) 0.6 K/uL (0.0-0.8) 03/06/19 04:55 Eos # (Auto) 0.3 K/uL (0.0-0.7) 03/06/19 04:55 Baso # (Auto) 0.0 K/uL (0.0-0.2) 03/06/19 04:55 PT 12.4 Seconds (9.8-13.1) 03/04/19 17:19 INR 1.1 03/04/19 17:19 APTT 31.1 Seconds (25.6-37.1) 03/04/19 17:19 Sodium 134 mmol/l (132-148) 03/06/19 04:55 Potassium 4.2 MMOL/L (3.6-5.0) 03/06/19 04:55 Chloride 99 mmol/L (98-107) 03/06/19 04:55 Carbon Dioxide 31 mmol/L (22-30) H 03/06/19 04:55 Anion Gap 8 (10-20) L 03/06/19 04:55 BUN 19 mg/dl (7-17) H 03/06/19 04:55 Creatinine 1.8 mg/dl (0.7-1.2) H 03/06/19 04:55 Est GFR ( Amer) 33 03/06/19 04:55 Est GFR (Non-Af Amer) 28 03/06/19 04:55 POC Glucose (mg/dL) 234 mg/dL (65-110) H 03/06/19 11:02 Random Glucose 121 mg/dL (65-105) H 03/06/19 04:55 Calcium 8.6 mg/dL (8.4-10.2) 03/06/19 04:55 Total Bilirubin 1.1 mg/dl (0.2-1.3) 03/06/19 04:55 AST 48 U/L (14-36) H 03/06/19 04:55 ALT 66 U/L (9-52) H D 03/06/19 04:55 Alkaline Phosphatase 97 U/L (38-126) 03/06/19 04:55 Troponin I < 0.0120 ng/mL (0.00-0.120) 03/04/19 17:19 Total Protein 6.5 G/DL (6.3-8.2) 03/06/19 04:55 Albumin 3.4 g/dL (3.5-5.0) L 03/06/19 04:55 Globulin 3.1 gm/dL (2.2-3.9) 03/06/19 04:55 Albumin/Globulin Ratio 1.1 (1.0-2.1) 03/06/19 04:55 Urine Color Yellow (YELLOW) 03/05/19 04:00 Urine Clarity Cloudy (Clear) 03/05/19 04:00 Urine pH 6.0 (5.0-8.0) 03/05/19 04:00 Ur Specific [place] 1.009 (1.003-1.030) 03/05/19 04:00 Urine Protein Negative mg/dL (NEGATIVE) 03/05/19 04:00 Urine Glucose (UA) Neg mg/dL (NEGATIVE) 03/05/19 04:00 Urine Ketones Negative mg/dL (NEGATIVE) 03/05/19 04:00 Urine Blood Small (NEGATIVE) 03/05/19 04:00 Urine Nitrate Negative (NEGATIVE) 03/05/19 04:00 Urine Bilirubin Negative (NEGATIVE) 03/05/19 04:00 Urine Urobilinogen 0.2-1.0 mg/dL (0.2-1.0) 03/05/19 04:00 Ur Leukocyte Esterase Mod [place]/uL (Negative) 03/05/19 04:00 Urine RBC (Auto) 3 /hpf (0-3) 03/05/19 04:00 Urine WBC Clumps (Auto) Few /hpf (NONE) H 03/05/19 04:00 Urine Microscopic WBC 142 /hpf (0-5) H 03/05/19 04:00 Ur Squamous Epith Cells 2 /hpf (0-5) 03/05/19 04:00 Urine Bacteria Many (<OCC) H 03/05/19 04:00 Stool Occult Blood Negative (NEGATIVE) 03/05/19 07:01 Blood Type O POSITIVE 03/04/19 17:30 Antibody Screen Negative 03/04/19 17:30 Crossmatch See Detail 03/04/19 17:30 BBK History Checked Patient has bt 03/04/19 17:30 Attending/Attestation - Attestation I have personally seen and examined this patient.: Yes I have fully participated in the care of the patient.: Yes I have reviewed all pertinent clinical information, including history, physical exam and plan: Yes Notes (Text): 03/06/19 17:07 Patient seen and examined with resident. Case discussed and agreed with assessment. Patient for discharge to TCU for therapy and continuation of antibiotics.
[2019-03-06 15:56] VITALS: BP 149/65; RESP 18; TEMP 98.1; O2SAT 94
[2019-03-06 17:56] VITALS: PULSE 89
== END 2019-03-06 18:15 | DRG 292 ==
LOC: H.ER 16:38 → H.ERHOLD 16:58 → H.TEL 21:38
PROC: 30233N1 Transfusion of Nonautologous Red Blood Cells into Peripheral Vein, Percutaneous Approach (ICD-10-PCS; principal; 2019-03-04)
DX: I13.0 Hypertensive heart and chronic kidney disease with heart failure and stage 1 through stage 4 chronic kidney disease, or unspecified chronic kidney disease (principal); I50.32 Chronic diastolic (congestive) heart failure; N39.0 Urinary tract infection, site not specified; N18.4 Chronic kidney disease, stage 4 (severe); E11.22 Type 2 diabetes mellitus with diabetic chronic kidney disease; D63.1 Anemia in chronic kidney disease; J44.9 Chronic obstructive pulmonary disease, unspecified; E11.51 Type 2 diabetes mellitus with diabetic peripheral angiopathy without gangrene; D64.9 Anemia, unspecified; Z79.4 Long term (current) use of insulin

== ENCOUNTER 2019-03-06 15:48 | Inpatient (IN) | payer OTHER ==
[2019-03-06 18:31] VITALS: BMI 31.3
[2019-03-06] MEDS ORDERED: Benzocaine/Menthol (Cepacol) Lozenge PO PRN (20:24)
[2019-03-06] MEDS: Insulin Detemir 100 Units/ml Inj SC SCH (22:19)
[2019-03-07] MEDS: Albuterol-Ipratrop 3 mg / 0.5 (3 ml) UD INH SCH ×3 (00:55→15:33)
--- NOTE | 2019-03-07 06:58 | CP.PCM.HP ---
<Haily Cardona - Last Filed: 03/07/19 12:40> History of Present Illness - History of Present Illness History of Present Illness: 73 F PMH of HTN, CKD stage 3B, IDDM, renal artery stenosis, s/p stent in Jul, peripheral arterial disease, and recent SAH / admitted for asymptomatic anemia and UTI. Patient was discharged to TCU for continuation of IV antibiotics. PMD: [facility] Cardio: Dr. Romano PMHx: HTN, CKD stage 3B, IDDM, renal artery stenosis, s/p stent in Jul, peripheral arterial disease, SAH 3/ Medications: reconciled Allergies: NKDA PSHx: former smoker, quit 5 years ago. 2 PPD smoker -11 pack years, denies EtOH and illicit drug use Surgical Hx: renal artery stent placement Jul 2017, angioplasty of right femoral artery. Family Hx: unknown Next of Kin: Farhana Present on Admission - Present on Admission Any Indicators Present on Admission: No Past Patient History - Past Medical History & Family History Past Medical History?: Yes - Past Social History Smoking Status: Former Smoker - CARDIAC Hx Congestive Heart Failure: Yes Hx Hypercholesterolemia: Yes Hx Hypertension: Yes Hx Peripheral Edema: Yes (PRESENTLY) - PULMONARY Hx Chronic Obstructive Pulmonary Disease (COPD): Yes - NEUROLOGICAL Hx Neurological Disorder: No - HEENT Hx HEENT Problems: Yes (SEASONAL ALLERGIES) - RENAL Hx Chronic Kidney Disease: Yes (CKD STATES KIDNEYS 38PERCENT PER PT) - ENDOCRINE/METABOLIC Hx Endocrine Disorders: Yes Hx Diabetes Mellitus Type 2: Yes - HEMATOLOGICAL/ONCOLOGICAL Hx Anemia: Yes - INTEGUMENTARY Hx Dermatological Problems: No - MUSCULOSKELETAL/RHEUMATOLOGICAL Hx Arthritis: Yes (RIGHT KNEE) Hx Falls: Yes - GASTROINTESTINAL Hx Gastrointestinal Disorders: No - GENITOURINARY/GYNECOLOGICAL Hx Genitourinary Disorders: No - PSYCHIATRIC Hx Psychophysiologic Disorder: No Hx Substance Use: No - SURGICAL HISTORY Hx Tonsillectomy: Yes - ANESTHESIA Hx Anesthesia: Yes Hx Anesthesia Reactions: No Hx Malignant Hyperthermia: No Meds Allergies/Adverse Reactions: Allergies Allergy/AdvReac Type Severity Reaction Status Date / Time gabapentin Allergy ITCHING Verified 03/06/19 18:31 Physical Exam - Head Exam Head Exam: ATRAUMATIC, NORMAL INSPECTION - Eye Exam Eye Exam: EOMI - ENT Exam ENT Exam: Mucous Membranes Moist - Respiratory Exam Respiratory Exam: Clear to Auscultation Bilateral - Cardiovascular Exam Cardiovascular Exam: REGULAR RHYTHM, +S1, +S2 - GI/Abdominal Exam GI & Abdominal Exam: Normal Bowel Sounds, Soft. absent: Guarding, Rigid - Extremities Exam Extremities exam: Negative for: calf tenderness - Neurological Exam Neurological exam: Alert, Oriented x3 - Psychiatric Exam Psychiatric exam: Normal Mood - Skin Skin Exam: Dry, Intact Results - Vital Signs Recent Vital Signs: Last Vital Signs Temp 97.6 F 03/06/19 18:54 Pulse 72 03/07/19 00:59 Resp 16 03/06/19 18:54 BP 147/52 L 03/07/19 00:59 Pulse Ox 93 L 03/06/19 18:54 - Labs Labs: Laboratory Results - last 24 hr 03/06/19 03/07/19 21:03 06:11 POC Glucose (mg/dL) 176 H 124 H Assessment & Plan - Assessment and Plan (Free Text) Assessment: 73 F PMH of HTN, CKD stage 3B, IDDM, renal artery stenosis, s/p stent in Jul, peripheral arterial disease, and recent SAH 01/31 admitted for asymptomatic anemia and UTI. Patient was transferred to TCU for continuation of antibiotics. Patient will receive 3rd dose of IV antibiotic today. Asymptomatic Anemia (acute on Chronic) -H/H: 8.3/24.4 (admission 6.6/19.7) -s/p 2 units PRBC -Pantoprazole 40mg daily -Ferrous sulfate 325mg BID PO CHF -Diastolic dysfunction -ECHO: 11/2018 EF 60-65% -c/w lasix 40mg daily CKD stage 4 -Cont to monitor UTI -Ceftriaxone 1gm daily, 3rd dose to be received today; cont for 6 more days HTN -c/w hydralazine 50mg Q8H -c/w losartan 100 mg daily IDDM -c/w glipizide 5mg daily -Accuchecks -Hypoglycemia protocol -Sliding scale medium dose PAD with neuropathy -c/w atorvastatin 80 mg daily -c/w Azetimibe 10 mg BID -c/w Lyrica 75 mg daily DVT Prophylaxis -SCD bc of anemia <Kofi Wayne - Last Filed: 03/07/19 15:45> Results - Vital Signs Recent Vital Signs: Last Vital Signs Temp 98.1 F 03/07/19 10:00 Pulse 87 03/07/19 10:44 Resp 100 H 03/07/19 10:00 BP 144/59 L 03/07/19 10:00 Pulse Ox 97 03/07/19 10:44 - Labs Labs: Laboratory Results - last 24 hr 03/06/19 03/07/19 03/07/19 21:03 06:11 10:49 POC Glucose (mg/dL) 176 H 124 H 252 H Attending/Attestation - Attestation I have personally seen and examined this patient.: Yes I have fully participated in the care of the patient.: Yes I have reviewed all pertinent clinical information: Yes Notes (Text): 03/07/19 15:45 Patient seen and examined with resident. Case discussed and agreed with assessment and plan of management
[2019-03-07] MEDS: Ergocalciferol 50,000 Intl Units Cap PO SCH (08:21)
[2019-03-07] MEDS: FLUTICASONE PROPION/SALMETEROL 55-14 INHALER IH SCH ×2 (08:22→21:48)
[2019-03-07] MEDS: Pantoprazole 40 mg EC Tab PO SCH (08:22)
[2019-03-07] MEDS: Multivitamin Vitamin B Complex (Nephro-Vite) Tab PO SCH (08:23)
[2019-03-07] MEDS ORDERED: cefTRIAXone IV 1 gm in Dextros 50 ML BAG IVPB SCH (09:00)
[2019-03-07] MEDS ORDERED: Pneumococcal 23-Valent Vaccine IM ONE (13:00)
[2019-03-07] MEDS: Insulin Regular 100 units/ml SC SCH ×2 (16:24→21:53)
[2019-03-07] MEDS: Insulin Detemir 100 Units/ml Inj SC SCH (21:51)
[2019-03-08] MEDS: Albuterol-Ipratrop 3 mg / 0.5 (3 ml) UD INH SCH ×4 (01:05→23:40)
[2019-03-08 06:00] LABS: BASO % 0.7 % (0.0-2.0); EOS # 0.3 K/uL (0.0-0.7); EOS % 5.5 % (0.0-4.0); MEAN CELL VOLUME 86.3 fl (81.0-99.0); MEAN CORPUSCULAR HEMOGLOBIN 28.8 pg (27.0-31.0); MEAN CORPUSCULAR HGB CONC 33.4 g/dL (33.0-37.0); MEAN PLATELET VOLUME 7.8 fl (7.2-11.7); MONO # 0.5 K/uL (0.0-0.8); MONO % 10.2 % (0.0-10.0); NEUT # 3.2 K/uL (1.8-7.0); NEUT % 64.6 % (50.0-75.0); NRBC % 0.1 % (0.0-0.0); RBC 3.11 Mil/uL (3.80-5.20); RED CELL DISTRIBUTION WIDTH 18.4 % (11.5-14.5)
[2019-03-08 06:13] LABS: CALCIUM 8.2 mg/dL (8.4-10.2)
[2019-03-08] MEDS: Insulin Regular 100 units/ml SC SCH ×4 (07:45→22:07)
[2019-03-08] MEDS: FLUTICASONE PROPION/SALMETEROL 55-14 INHALER IH SCH ×2 (08:50→21:19)
[2019-03-08] MEDS: Multivitamin Vitamin B Complex (Nephro-Vite) Tab PO SCH (08:53)
[2019-03-08] MEDS: Pantoprazole 40 mg EC Tab PO SCH (08:54)
[2019-03-08] MEDS ORDERED: Meropenem 1 GM in Sodium Chloride 0.9% 100 ML IVPB ONE (09:00)
--- NOTE | 2019-03-08 09:09 | CP.PCM.CON ---
History of Present Illness - History of Present Illness History of Present Illness: Infectious Disease Consultation Note- Asked to the patient at the request of Hospitalist for ESBL UTI. HPI- Patient is a 73 year old female with PMH of HTN< CKD, renal artery stenosis s/p stent 2016 , PAD, with recent admission for 01/31/2018 SAH was d/c to [facility] and then admitted for anemia here and and was found to have + UA and was being treated with ceftriaxone for UTI pending urine cx by the admitting doc and transferred to TCU for PT and completion of her antibiotics but was found to have ESBL UTI and hence I'm asked to evaluate and help with antibiotic management. Pt. denies any fever or chills, denies any abd.or pelvic pain, denies any dysurea. denies any cough or sob, denies any chest pain. PMHx: HTN, CKD stage 3B, IDDM, renal artery stenosis, s/p stent in Jul placed by , peripheral arterial disease, SAH 01/31 Allergies: NKDA PSHx: former smoker, quit 5 years ago. 2 PPD smoker -11 pack years, denies EtOH and illicit drug use Surgical Hx: renal artery stent placement Jul 2017, angioplasty of right femoral artery. Family Hx: unknown Review of Systems - Review of Systems Review of Systems: ROS- as stated in HPI Past Patient History - Past Medical History & Family History Past Medical History?: Yes - Past Social History Smoking Status: Former Smoker - CARDIAC Hx Congestive Heart Failure: Yes Hx Hypercholesterolemia: Yes Hx Hypertension: Yes Hx Peripheral Edema: Yes (PRESENTLY) - PULMONARY Hx Chronic Obstructive Pulmonary Disease (COPD): Yes - NEUROLOGICAL Hx Neurological Disorder: No - HEENT Hx HEENT Problems: Yes (SEASONAL ALLERGIES) - RENAL Hx Chronic Kidney Disease: Yes (CKD STATES KIDNEYS 38PERCENT PER PT) - ENDOCRINE/METABOLIC Hx Endocrine Disorders: Yes Hx Diabetes Mellitus Type 2: Yes - HEMATOLOGICAL/ONCOLOGICAL Hx Anemia: Yes - INTEGUMENTARY Hx Dermatological Problems: No - MUSCULOSKELETAL/RHEUMATOLOGICAL Hx Arthritis: Yes (RIGHT KNEE) Hx Falls: Yes - GASTROINTESTINAL Hx Gastrointestinal Disorders: No - GENITOURINARY/GYNECOLOGICAL Hx Genitourinary Disorders: No - PSYCHIATRIC Hx Psychophysiologic Disorder: No Hx Substance Use: No - SURGICAL HISTORY Hx Tonsillectomy: Yes - ANESTHESIA Hx Anesthesia: Yes Hx Anesthesia Reactions: No Hx Malignant Hyperthermia: No Meds Allergies/Adverse Reactions: Allergies Allergy/AdvReac Type Severity Reaction Status Date / Time gabapentin Allergy ITCHING Verified 03/06/19 18:31 - Medications Medications: Current Medications Acetaminophen (Tylenol 325mg Tab) 650 mg PO Q4 PRN PRN Reason: Pain, Mild (1-3) Albuterol/Ipratropium (Duoneb 3 Mg/0.5 Mg (3 Ml) Ud) 3 ml INH RQ8 [facility] Last Admin: 03/08/19 07:24 Dose: 3 ml Amitriptyline HCl (Elavil) 25 mg PO HS [facility] Last Admin: 03/07/19 22:07 Dose: 25 mg Amlodipine Besylate (Norvasc) 10 mg PO DAILY [facility] Last Admin: 03/08/19 08:53 Dose: 10 mg Aspirin (Ecotrin) 81 mg PO DAILY [facility] Last Admin: 03/08/19 08:52 Dose: 81 mg Atorvastatin Calcium (Lipitor) 80 mg PO HS [facility] Last Admin: 03/07/19 21:50 Dose: 80 mg Benzocaine/Menthol (Cepacol Sore Throat) 1 katy PO Q4 PRN PRN Reason: Sore Throat Ezetimibe (Zetia) 10 mg PO BID [facility] Last Admin: 03/08/19 08:54 Dose: 10 mg Ergocalciferol (Drisdol 50,000 Intl Units Cap) 1 cap PO QWK [facility] Last Admin: 03/07/19 08:21 Dose: 1 cap Ferrous Sulfate (Feosol) 325 mg PO BID [facility] Last Admin: 03/08/19 08:52 Dose: 325 mg Fluticasone Propionate (Flonase) 1 spr SONIA BID [facility] Last Admin: 03/08/19 08:52 Dose: 1 spr Furosemide (Lasix) 40 mg PO DAILY [facility] Last Admin: 03/08/19 08:53 Dose: 40 mg Glipizide (Glucotrol) 5 mg PO DAILY [facility] Last Admin: 03/08/19 08:53 Dose: 5 mg Hydralazine HCl (Apresoline) 50 mg PO Q8 [facility] Last Admin: 03/08/19 08:52 Dose: 50 mg Ceftriaxone Sodium 1 gm/ (Sodium Chloride) 100 mls @ 100 mls/hr IVPB DAILY [facility] Last Admin: 03/07/19 08:26 Dose: 100 mls/hr Meropenem 1 gm/ Sodium (Chloride) 100 mls @ 100 mls/hr IVPB ONCE ONE; Protocol Stop: 03/08/19 09:59 Insulin Detemir (Levemir) [address] [facility] Last Admin: 03/07/19 21:51 Dose: 15 u Insulin Human Regular (Humulin R) 0 units SC ACHS [facility]; Protocol Last Admin: 03/08/19 07:45 Dose: 2 u Losartan Potassium (Cozaar) 100 mg PO HS [facility] Last Admin: 03/07/19 21:49 Dose: 100 mg Nystatin (Nystop Topical Powder) 1 applic TOP TID [facility] Last Admin: 03/08/19 08:53 Dose: 1 applic Pantoprazole Sodium (Protonix Ec Tab) 40 mg PO DAILY [facility] Last Admin: 03/08/19 08:54 Dose: 40 mg Spironolactone (Aldactone) 25 mg PO DAILY [facility] Last Admin: 03/08/19 08:51 Dose: 25 mg Vitamin B Complex/Vit C/Folic Acid (Nephro-Briseida) 1 tab PO DAILY [facility] Last Admin: 03/08/19 08:53 Dose: 1 tab Physical Exam - Constitutional Appears: No Acute Distress - Head Exam Head Exam: ATRAUMATIC - Eye Exam Eye Exam: EOMI, PERRL - ENT Exam ENT Exam: Normal Oropharynx - Neck Exam Neck exam: Positive for: Full Rom - Respiratory Exam Respiratory Exam: Clear to Auscultation Bilateral, NORMAL BREATHING PATTERN - Cardiovascular Exam Cardiovascular Exam: RRR, +S1, +S2 - GI/Abdominal Exam GI & Abdominal Exam: Normal Bowel Sounds, Soft Additional comments: NT, ND - Extremities Exam Extremities exam: Positive for: normal inspection - Neurological Exam Neurological exam: Alert, Oriented x3 Results - Vital Signs Recent Vital Signs: Last Vital Signs Temp 98.0 F 03/08/19 07:53 Pulse 78 03/08/19 08:53 Resp 18 03/08/19 07:53 BP 148/69 03/08/19 08:53 Pulse Ox 98 03/08/19 07:53 - Labs Result Diagrams: 03/08/19 05:40 03/08/19 05:40 Labs: Laboratory Results - last 24 hr 03/07/19 03/07/19 03/07/19 10:49 15:47 20:34 WBC RBC Hgb Hct MCV MCH MCHC RDW Plt Count MPV Neut % (Auto) Lymph % (Auto) [place] % (Auto) Eos % (Auto) Baso % (Auto) Neut # (Auto) Lymph # (Auto) [place] # (Auto) Eos # (Auto) Baso # (Auto) Sodium Potassium Chloride Carbon Dioxide Anion Gap BUN Creatinine Est GFR ( Amer) Est GFR (Non-Af Amer) POC Glucose (mg/dL) 252 H 220 H 269 H Random Glucose Calcium 03/08/19 03/08/19 03/08/19 05:40 05:40 05:50 WBC 5.0 RBC 3.11 L Hgb 9.0 L Hct 26.9 L MCV 86.3 MCH 28.8 MCHC 33.4 RDW 18.4 H Plt Count 130 MPV 7.8 Neut % (Auto) 64.6 Lymph % (Auto) 19.0 L [place] % (Auto) 10.2 H Eos % (Auto) 5.5 H Baso % (Auto) 0.7 Neut # (Auto) 3.2 Lymph # (Auto) 1.0 [place] # (Auto) 0.5 Eos # (Auto) 0.3 Baso # (Auto) 0.0 Sodium 135 Potassium 3.8 Chloride 99 Carbon Dioxide 28 Anion Gap 12 BUN 19 H Creatinine 1.7 H Est GFR ( Amer) 36 Est GFR (Non-Af Amer) 30 POC Glucose (mg/dL) 206 H Random Glucose 189 H Calcium 8.2 L Microbiology 03/04/19 07:09 Urine,Clean Catch Urine Culture - Final Klebsiella Pneumoniae Ssp Pneu 02/12/19 20:15 Blood Blood Culture - Final 02/12/19 20:15 Blood Gram Stain - Final NO GROWTH AFTER 5 DAYS TEST NOT PERFORMED 02/12/19 20:15 Blood Blood Culture - Final 02/12/19 20:15 Blood Gram Stain - Final NO GROWTH AFTER 5 DAYS TEST NOT PERFORMED Assessment & Plan (1) UTI (urinary tract infection) Status: Acute - Assessment and Plan (Free Text) Assessment: A/P- 73 year old female with multiple medical conditions admitted to TCU for PT and antibiotics for UTi found to have ESBL UTI. pt. afebrile normal wbc count Urine cx- ESBL K.Pneumonia Plan- advise to start patient on IV meropenem ( renal dose). advise 7 days of IV meropnem. rest of management as per primary team. All above d/w patient and she verbalizes full understanding of all above. Thank you for allowing me to take part in the care of this patient.
[2019-03-08] MEDS: Meropenem 1 GM in Sodium Chloride 0.9% 100 ML IVPB SCH (20:54)
[2019-03-08] MEDS: Insulin Detemir 100 Units/ml Inj SC SCH (22:07)
[2019-03-09] MEDS: Insulin Regular 100 units/ml SC SCH ×4 (06:55→21:01)
[2019-03-09] MEDS: Albuterol-Ipratrop 3 mg / 0.5 (3 ml) UD INH SCH ×3 (07:42→23:36)
[2019-03-09] MEDS: FLUTICASONE PROPION/SALMETEROL 55-14 INHALER IH SCH ×2 (09:10→20:48)
[2019-03-09] MEDS: Multivitamin Vitamin B Complex (Nephro-Vite) Tab PO SCH (09:17)
[2019-03-09] MEDS: Pantoprazole 40 mg EC Tab PO SCH (09:18)
[2019-03-09] MEDS: Meropenem 1 GM in Sodium Chloride 0.9% 100 ML IVPB SCH ×2 (09:36→20:49)
--- NOTE | 2019-03-09 15:08 | CP.PCM.PN ---
Subjective - Date & Time of Evaluation Date of Evaluation: 03/09/19 Time of Evaluation: 15:07 - Subjective Subjective: doing well no complaints hd stable nad Objective - Vital Signs/Intake and Output Vital Signs (last 24 hours): Temp Pulse Resp BP Pulse Ox 98.8 F 83 20 109/57 L 96 03/09/19 07:41 03/09/19 09:17 03/09/19 07:41 03/09/19 09:17 03/09/19 07:41 Intake and Output: Vitals Reviewed GEN: WDWN, alert, cooperative HEENT: NCAT, PERRL, EOMI HEART: RRR, +S1S2, NO MRG LUNG: CTAB, NO WRR ABD: soft, NT, ND, No HSM, No masses EXT: normal pedal pulses NEURO: awake, alert SKIN: warm, dry PSYCH: normal mood, normal affect - Medications Medications: Current Medications Acetaminophen (Tylenol 325mg Tab) 650 mg PO Q4 PRN PRN Reason: Pain, Mild (1-3) Albuterol/Ipratropium (Duoneb 3 Mg/0.5 Mg (3 Ml) Ud) 3 ml INH RQ8 [facility] Last Admin: 03/09/19 07:42 Dose: 3 ml Amitriptyline HCl (Elavil) 25 mg PO HS [facility] Last Admin: 03/08/19 21:06 Dose: 25 mg Amlodipine Besylate (Norvasc) 10 mg PO DAILY [facility] Aspirin (Ecotrin) 81 mg PO DAILY [facility] Last Admin: 03/09/19 09:14 Dose: 81 mg Atorvastatin Calcium (Lipitor) 80 mg PO HS [facility] Last Admin: 03/08/19 21:06 Dose: 80 mg Benzocaine/Menthol (Cepacol Sore Throat) 1 katy PO Q4 PRN PRN Reason: Sore Throat Ezetimibe (Zetia) 10 mg PO BID [facility] Last Admin: 03/09/19 09:18 Dose: 10 mg Ergocalciferol (Drisdol 50,000 Intl Units Cap) 1 cap PO QWK [facility] Last Admin: 03/07/19 08:21 Dose: 1 cap Ferrous Sulfate (Feosol) 325 mg PO BID [facility] Last Admin: 03/09/19 09:14 Dose: 325 mg Fluticasone Propionate (Flonase) 1 spr SONIA BID [facility] Last Admin: 03/09/19 09:14 Dose: 1 spr Furosemide (Lasix) 40 mg PO DAILY [facility] Last Admin: 03/09/19 09:16 Dose: Not Given Glipizide (Glucotrol) 5 mg PO DAILY [facility] Last Admin: 03/09/19 09:15 Dose: 5 mg Hydralazine HCl (Apresoline) 50 mg PO Q8 PRN PRN Reason: bp >160 systolic Meropenem 1 gm/ Sodium (Chloride) 100 mls @ 100 mls/hr IVPB Q12 [facility]; Protocol Last Admin: 03/09/19 09:36 Dose: 100 mls/hr Insulin Detemir (Levemir) 15 units SC [facility] Last Admin: 03/08/19 22:07 Dose: 15 u Insulin Human Regular (Humulin R) 0 units SC ACHS [facility]; Protocol Last Admin: 03/09/19 11:30 Dose: Not Given Losartan Potassium (Cozaar) 100 mg PO HS [facility] Last Admin: 03/08/19 21:04 Dose: 100 mg Nystatin (Nystop Topical Powder) 1 applic TOP TID [facility] Last Admin: 03/09/19 09:18 Dose: 1 applic Pantoprazole Sodium (Protonix Ec Tab) 40 mg PO DAILY [facility] Last Admin: 03/09/19 09:18 Dose: 40 mg Spironolactone (Aldactone) 25 mg PO DAILY [facility] Last Admin: 03/09/19 11:28 Dose: 25 mg Vitamin B Complex/Vit C/Folic Acid (Nephro-Briseida) 1 tab PO DAILY [facility] Last Admin: 03/09/19 09:17 Dose: 1 tab - Labs Labs: 03/08/19 05:40 03/08/19 05:40 Assessment and Plan - Assessment and Plan (Free Text) Plan: 73 F PMH of HTN, CKD stage 3B, IDDM, renal artery stenosis, s/p stent in Jul, peripheral arterial disease, and recent SAH 01/31 admitted for asymptomatic anemia and UTI. Patient was transferred to TCU for continuation of antibiotics. Patient will receive 3rd dose of IV antibiotic today. Asymptomatic Anemia (acute on Chronic) -H/H: 8.3/24.4 (admission 6.6/19.7) -s/p 2 units PRBC -Pantoprazole 40mg daily -Ferrous sulfate 325mg BID PO CHF -Diastolic dysfunction -ECHO: 11/2018 EF 60-65% -c/w lasix 40mg daily CKD stage 4 -Cont to monitor UTI -Ceftriaxone 1gm daily, 3rd dose to be received today; cont for 6 more days ID recommended MERREM 7 days until 03/16/19 HTN -c/w hydralazine 50mg Q8H -c/w losartan 100 mg daily IDDM -c/w glipizide 5mg daily -Accuchecks -Hypoglycemia protocol -Sliding scale medium dose PAD with neuropathy -c/w atorvastatin 80 mg daily -c/w Azetimibe 10 mg BID -c/w Lyrica 75 mg daily DVT Prophylaxis -SCD bc of anemia
[2019-03-09] MEDS: Insulin Detemir 100 Units/ml Inj SC SCH (20:59)
[2019-03-10] MEDS: Insulin Regular 100 units/ml SC SCH ×4 (06:42→21:26)
[2019-03-10] MEDS: Albuterol-Ipratrop 3 mg / 0.5 (3 ml) UD INH SCH ×2 (08:13→14:59)
[2019-03-10] MEDS: Meropenem 1 GM in Sodium Chloride 0.9% 100 ML IVPB SCH ×2 (08:45→21:19)
[2019-03-10] MEDS: Pantoprazole 40 mg EC Tab PO SCH (08:47)
[2019-03-10] MEDS: Multivitamin Vitamin B Complex (Nephro-Vite) Tab PO SCH (08:47)
[2019-03-10] MEDS: FLUTICASONE PROPION/SALMETEROL 55-14 INHALER IH SCH ×2 (08:50→21:19)
[2019-03-10] MEDS: Insulin Detemir 100 Units/ml Inj SC SCH (21:21)
[2019-03-11] MEDS: Insulin Regular 100 units/ml SC SCH ×4 (06:48→21:54)
[2019-03-11] MEDS: Albuterol-Ipratrop 3 mg / 0.5 (3 ml) UD INH SCH ×4 (07:52→23:16)
[2019-03-11] MEDS: Ergocalciferol 50,000 Intl Units Cap PO SCH (09:16)
[2019-03-11] MEDS: Multivitamin Vitamin B Complex (Nephro-Vite) Tab PO SCH (09:18)
[2019-03-11] MEDS: Pantoprazole 40 mg EC Tab PO SCH (09:18)
[2019-03-11] MEDS: FLUTICASONE PROPION/SALMETEROL 55-14 INHALER IH SCH ×2 (09:19→21:52)
[2019-03-11] MEDS: Meropenem 1 GM in Sodium Chloride 0.9% 100 ML IVPB SCH ×2 (09:20→20:37)
[2019-03-11] MEDS: Insulin Detemir 100 Units/ml Inj SC SCH (21:48)
[2019-03-12] MEDS: Insulin Regular 100 units/ml SC SCH ×4 (06:43→21:36)
[2019-03-12] MEDS: Albuterol-Ipratrop 3 mg / 0.5 (3 ml) UD INH SCH ×3 (08:15→23:26)
[2019-03-12] MEDS: FLUTICASONE PROPION/SALMETEROL 55-14 INHALER IH SCH ×2 (08:52→21:27)
[2019-03-12] MEDS: Multivitamin Vitamin B Complex (Nephro-Vite) Tab PO SCH (08:55)
[2019-03-12] MEDS: Pantoprazole 40 mg EC Tab PO SCH (08:56)
[2019-03-12] MEDS: Meropenem 1 GM in Sodium Chloride 0.9% 100 ML IVPB SCH ×2 (09:53→21:26)
[2019-03-12] MEDS: Insulin Detemir 100 Units/ml Inj SC SCH (21:28)
[2019-03-13] MEDS: Insulin Regular 100 units/ml SC SCH ×4 (07:07→21:30)
[2019-03-13] MEDS: Albuterol-Ipratrop 3 mg / 0.5 (3 ml) UD INH SCH ×3 (08:42→23:49)
[2019-03-13] MEDS: FLUTICASONE PROPION/SALMETEROL 55-14 INHALER IH SCH ×2 (09:00→21:28)
[2019-03-13] MEDS: Multivitamin Vitamin B Complex (Nephro-Vite) Tab PO SCH (09:11)
[2019-03-13] MEDS: Pantoprazole 40 mg EC Tab PO SCH (09:12)
[2019-03-13] MEDS: Meropenem 1 GM in Sodium Chloride 0.9% 100 ML IVPB SCH ×2 (09:18→20:54)
[2019-03-13] MEDS: Insulin Detemir 100 Units/ml Inj SC SCH (21:30)
[2019-03-14] MEDS: Insulin Regular 100 units/ml SC SCH ×4 (06:38→22:00)
[2019-03-14] MEDS: Albuterol-Ipratrop 3 mg / 0.5 (3 ml) UD INH SCH ×2 (07:05→15:17)
[2019-03-14] MEDS: FLUTICASONE PROPION/SALMETEROL 55-14 INHALER IH SCH ×2 (09:09→22:31)
[2019-03-14] MEDS: Meropenem 1 GM in Sodium Chloride 0.9% 100 ML IVPB SCH ×2 (09:11→22:35)
[2019-03-14] MEDS: Multivitamin Vitamin B Complex (Nephro-Vite) Tab PO SCH (09:12)
[2019-03-14] MEDS: Pantoprazole 40 mg EC Tab PO SCH (09:13)
--- NOTE | 2019-03-14 12:21 | CP.PCM.PN ---
Subjective - Date & Time of Evaluation Date of Evaluation: 03/14/19 Time of Evaluation: 14:00 - Subjective Subjective: patient seen and examined bedside . All chart and clinical data reviewed . Care resumed Feeling well. Hemodynamically stable, afebrile Denies any pain or discomfort For discharge home in AM Objective - Vital Signs/Intake and Output Vital Signs (last 24 hours): Temp Pulse Resp BP Pulse Ox 97.9 F 72 18 121/65 95 03/14/19 07:49 03/14/19 09:12 03/14/19 07:49 03/14/19 09:12 03/14/19 07:49 - Medications Medications: Current Medications Acetaminophen (Tylenol 325mg Tab) 650 mg PO Q4 PRN PRN Reason: Pain, Mild (1-3) Albuterol/Ipratropium (Duoneb 3 Mg/0.5 Mg (3 Ml) Ud) 3 ml INH RQ8 [facility] Last Admin: 03/14/19 07:05 Dose: 3 ml Amitriptyline HCl (Elavil) 25 mg PO HS [facility] Last Admin: 03/13/19 21:29 Dose: 25 mg Amlodipine Besylate (Norvasc) 10 mg PO DAILY [facility] Last Admin: 03/14/19 09:12 Dose: 10 mg Aspirin (Ecotrin) 81 mg PO DAILY [facility] Last Admin: 03/14/19 09:09 Dose: 81 mg Atorvastatin Calcium (Lipitor) 80 mg PO HS [facility] Last Admin: 03/13/19 21:33 Dose: 80 mg Benzocaine/Menthol (Cepacol Sore Throat) 1 katy PO Q4 PRN PRN Reason: Sore Throat Ezetimibe (Zetia) 10 mg PO BID [facility] Last Admin: 03/14/19 09:13 Dose: 10 mg Ergocalciferol (Drisdol 50,000 Intl Units Cap) 1 cap PO QWK [facility] Last Admin: 03/11/19 09:16 Dose: Not Given Ferrous Sulfate (Feosol) 325 mg PO BID [facility] Last Admin: 03/14/19 09:10 Dose: 325 mg Fluticasone Propionate (Flonase) 1 spr SONIA BID [facility] Last Admin: 03/14/19 09:10 Dose: 1 spr Furosemide (Lasix) 40 mg PO DAILY [facility] Last Admin: 03/14/19 09:10 Dose: 40 mg Glipizide (Glucotrol) 5 mg PO DAILY [facility] Last Admin: 03/14/19 09:10 Dose: 5 mg Hydralazine HCl (Apresoline) 50 mg PO Q8 PRN PRN Reason: bp >160 systolic Last Admin: 03/10/19 16:57 Dose: 50 mg Meropenem 1 gm/ Sodium (Chloride) 100 mls @ 100 mls/hr IVPB Q12 [facility]; Protocol Last Admin: 03/14/19 09:11 Dose: 100 mls/hr Insulin Detemir (Levemir) 15 units SC [facility] Last Admin: 03/13/19 21:30 Dose: 15 u Insulin Human Regular (Humulin R) [address] [facility]; Protocol Last Admin: 03/14/19 12:16 Dose: 1 units Losartan Potassium (Cozaar) 100 mg PO [facility] Last Admin: 03/13/19 21:29 Dose: 100 mg Nystatin (Nystop Topical Powder) 1 applic TOP TID [facility] Last Admin: 03/14/19 09:13 Dose: 1 applic Pantoprazole Sodium (Protonix Ec Tab) 40 mg PO DAILY [facility] Last Admin: 03/14/19 09:13 Dose: 40 mg Spironolactone (Aldactone) 25 mg PO DAILY [facility] Last Admin: 03/14/19 09:09 Dose: 25 mg Vitamin B Complex/Vit C/Folic Acid (Nephro-Briseida) 1 tab PO DAILY [facility] Last Admin: 03/14/19 09:12 Dose: 1 tab - Labs Labs: 03/08/19 05:40 03/08/19 05:40 - Constitutional Appears: Well, Non-toxic, No Acute Distress - Head Exam Head Exam: ATRAUMATIC, NORMAL INSPECTION, NORMOCEPHALIC - Eye Exam Eye Exam: EOMI, Normal appearance, PERRL Pupil Exam: NORMAL ACCOMODATION - ENT Exam ENT Exam: Mucous Membranes Moist, Normal Exam - Neck Exam Neck Exam: Full ROM, Normal Inspection - Respiratory Exam Respiratory Exam: Clear to Ausculation Bilateral, NORMAL BREATHING PATTERN. absent: Rales, Rhonchi, Wheezes - Cardiovascular Exam Cardiovascular Exam: REGULAR RHYTHM, RRR, +S1, +S2. absent: JVD - GI/Abdominal Exam GI & Abdominal Exam: Soft, Normal Bowel Sounds. absent: Distended, Guarding, Tenderness, Rebound - Rectal Exam Rectal Exam: Deferred - Extremities Exam Extremities Exam: Full ROM, Normal Capillary Refill, Normal Inspection. absent: Pedal Edema - Back Exam Back Exam: NORMAL INSPECTION - Neurological Exam Neurological Exam: Alert, Awake, CN II-XII Intact, Oriented x3 - Psychiatric Exam Psychiatric exam: Normal Affect, Normal Mood - Skin Skin Exam: Dry, Intact, Normal Color, Warm Assessment and Plan - Assessment and Plan (Free Text) Assessment: 73 y/o F PMH of HTN, CKD stage 3B, IDDM, renal artery stenosis, s/p stent in Jul, peripheral arterial disease, and recent SAH / admitted for asymptomatic anemia and ESBL E. Coli UTI. Patient was transferred to TCU for continuation of antibiotics. She is feeling well. For discharge in Am after 7 daus of IV antibiotics 1. ESBL E. Coli UTI Id was consulted and recommended Meropenem for 7 days At present on Meropenem IV Doing well For D/c in AM 2.Asymptomatic Anemia (acute on Chronic) stable Received 2 units PRBC this admission Continue ferrous sulfate and protonix Follow up with GI as outpatient for possible colonoscopy and EGD Continue Ferros sulfate PO 3. Hypertension controlled Continue hydralazine , norvasc , spironolactone and losartan 4.CHF, compensated Diastolic dysfunction ECHO: 11/2018 EF 60-65% continue lasix 40mg daily, Losaratn , ASA, statin, Spironolactone 5.CKD stage 4 stable Continue to monitor 6.IDDM controlled Continue accuchecks, Insulin coverage on Glipizide 5 mg po QD, levemnir 15 units HS 7.PAD with neuropathy on Statin , lyrica , ASA 8. Dyslipidemia on atorvastatin and zetia 8.DVT Prophylaxis SCD
[2019-03-14] MEDS: Insulin Detemir 100 Units/ml Inj SC SCH (22:33)
[2019-03-15] MEDS: Albuterol-Ipratrop 3 mg / 0.5 (3 ml) UD INH SCH ×4 (00:59→15:25)
[2019-03-15] MEDS: Insulin Regular 100 units/ml SC SCH ×3 (07:02→17:16)
[2019-03-15] MEDS: Meropenem 1 GM in Sodium Chloride 0.9% 100 ML IVPB SCH (09:19)
[2019-03-15] MEDS: Multivitamin Vitamin B Complex (Nephro-Vite) Tab PO SCH (09:20)
[2019-03-15] MEDS: Pantoprazole 40 mg EC Tab PO SCH (09:20)
[2019-03-15] MEDS: FLUTICASONE PROPION/SALMETEROL 55-14 INHALER IH SCH (09:21)
--- NOTE | 2019-03-15 14:42 | CP.PCM.DIS ---
Provider - Provider Date of Admission: 03/06/19 19:33 Attending physician: Kofi Wayne MD Consults: 03/06/19 19:30 Wound Care [Nursing Referral for Wound Care] Routine Comment: Physician Instructions: Reason For Exam: redness in groin 03/08/19 08:12 Physician Consult Routine Comment: Consulting Provider: Abbey Sanchez Consulting Physician: Abbey Sanchez Reason for Consult: klebsiella + Time Spent in preparation of Discharge (in minutes): 20 Hospital Course - Lab Results Lab Results: Most Recent Lab Values WBC 5.0 K/uL (4.8-10.8) 03/08/19 05:40 RBC 3.11 Mil/uL (3.80-5.20) L 03/08/19 05:40 Hgb 9.0 g/dL (12.0-16.0) L 03/08/19 05:40 Hct 26.9 % (34.0-47.0) L 03/08/19 05:40 MCV 86.3 fl (81.0-99.0) 03/08/19 05:40 MCH 28.8 pg (27.0-31.0) 03/08/19 05:40 MCHC 33.4 g/dL (33.0-37.0) 03/08/19 05:40 RDW 18.4 % (11.5-14.5) H 03/08/19 05:40 Plt Count 130 K/uL (130-400) 03/08/19 05:40 MPV 7.8 fl (7.2-11.7) 03/08/19 05:40 Neut % (Auto) 64.6 % (50.0-75.0) 03/08/19 05:40 Lymph % (Auto) 19.0 % (20.0-40.0) L 03/08/19 05:40 Ray % (Auto) 10.2 % (0.0-10.0) H 03/08/19 05:40 Eos % (Auto) 5.5 % (0.0-4.0) H 03/08/19 05:40 Baso % (Auto) 0.7 % (0.0-2.0) 03/08/19 05:40 Neut # (Auto) 3.2 K/uL (1.8-7.0) 03/08/19 05:40 Lymph # (Auto) 1.0 K/uL (1.0-4.3) 03/08/19 05:40 Ray # (Auto) 0.5 K/uL (0.0-0.8) 03/08/19 05:40 Eos # (Auto) 0.3 K/uL (0.0-0.7) 03/08/19 05:40 Baso # (Auto) 0.0 K/uL (0.0-0.2) 03/08/19 05:40 Sodium 135 mmol/l (132-148) 03/08/19 05:40 Potassium 3.8 MMOL/L (3.6-5.0) 03/08/19 05:40 Chloride 99 mmol/L (98-107) 03/08/19 05:40 Carbon Dioxide 28 mmol/L (22-30) 03/08/19 05:40 Anion Gap 12 (10-20) 03/08/19 05:40 BUN 19 mg/dl (7-17) H 03/08/19 05:40 Creatinine 1.7 mg/dl (0.7-1.2) H 03/08/19 05:40 Est GFR ( Amer) 36 03/08/19 05:40 Est GFR (Non-Af Amer) 30 03/08/19 05:40 POC Glucose (mg/dL) 193 mg/dL (65-110) H 03/15/19 11:00 Random Glucose 189 mg/dL (65-105) H 03/08/19 05:40 Calcium 8.2 mg/dL (8.4-10.2) L 03/08/19 05:40 - Hospital Course Hospital Course: 73 y/o F PMH of HTN, CKD stage 3B, IDDM, renal artery stenosis, s/p stent in Jul, peripheral arterial disease, and recent SAH 01/31 admitted for asymptomatic anemia and ESBL E. Coli UTI. Patient was transferred to TCU for continuation of antibiotics. She is feeling well. For discharge today after 7 days of IV antibiotics patient to follow up with PMD upon discharge 1. ESBL E. Coli UTI ID was consulted and recommended Meropenem for 7 days Today last day of IV therapy will d/c home Doing well 2.Asymptomatic Anemia (acute on Chronic) stable Received 2 units PRBC this admission Continue ferrous sulfate and protonix Follow up with GI as outpatient for possible colonoscopy and EGD 3. Hypertension controlled Continue hydralazine , norvasc , spironolactone and losartan 4.CHF, compensated Diastolic dysfunction ECHO: 11/2018 EF 60-65% continue lasix 40mg daily, Losartan , ASA, statin, Spironolactone 5.CKD stage 4 stable Continue to monitor 6.IDDM controlled Continue accuchecks, Insulin coverage on Glipizide 5 mg po QD, levemir 15 units HS 7.PAD with neuropathy on Statin , lyrica , ASA 8. Dyslipidemia on atorvastatin and zetia 8.DVT Prophylaxis SCD Discharge Exam - Head Exam Head Exam: ATRAUMATIC, NORMAL INSPECTION, NORMOCEPHALIC - Eye Exam Eye Exam: EOMI, Normal appearance, PERRL Pupil Exam: NORMAL ACCOMODATION - ENT Exam ENT Exam: Mucous Membranes Moist, Normal Exam - Neck Exam Neck exam: Full Rom, Normal Inspection - Respiratory Exam Respiratory Exam: Clear to PA & Lateral, NORMAL BREATHING PATTERN. absent: Rhonchi, Wheezes, Respiratory Distress - GI/Abdominal Exam GI & Abdominal Exam: Normal Bowel Sounds, Soft. absent: Distended, Guarding, Rebound, Tenderness - Rectal Exam Rectal Exam: Deferred - Extremities Exam Extremities exam: normal capillary refill, normal inspection, pedal pulses present - Back Exam Back exam: NORMAL INSPECTION - Neurological Exam Neurological exam: Alert, CN II-XII Intact, Oriented x3 - Psychiatric Exam Psychiatric exam: Normal Affect - Skin Skin Exam: Dry, Normal Color, Warm Discharge Plan - Follow Up Plan Condition: GOOD Disposition: HOME/ ROUTINE Patient education suggested?: Yes Referrals: [facility] [place] [Outside]
[2019-03-15 15:27] VITALS: BP 135/72; PULSE 80; RESP 20; TEMP 98.3; O2SAT 97
[2019-03-15] MEDS ORDERED: Pneumococcal 23-Valent Vaccine IM ONE (15:37)
== END 2019-03-15 18:54 | disposition home health service (06) | DRG 690 ==
LOC: H.TCU 19:33
PROC: 3E03329 Introduction of Other Anti-infective into Peripheral Vein, Percutaneous Approach (ICD-10-PCS; principal; 2019-03-06)
PROC: F07Z9FZ Gait Training/Functional Ambulation Treatment using Assistive, Adaptive, Supportive or Protective Equipment (ICD-10-PCS; 2019-03-06)
PROC: F08Z4FZ Home Management Treatment using Assistive, Adaptive, Supportive or Protective Equipment (ICD-10-PCS; 2019-03-06)
PROC: F07M6FZ Therapeutic Exercise Treatment of Musculoskeletal System - Whole Body using Assistive, Adaptive, Supportive or Protective Equipment (ICD-10-PCS; 2019-03-07)
PROC: 3E0234Z Introduction of Serum, Toxoid and Vaccine into Muscle, Percutaneous Approach (ICD-10-PCS; 2019-03-15)
DX: N39.0 Urinary tract infection, site not specified (principal); I13.0 Hypertensive heart and chronic kidney disease with heart failure and stage 1 through stage 4 chronic kidney disease, or unspecified chronic kidney disease; N18.4 Chronic kidney disease, stage 4 (severe); I50.32 Chronic diastolic (congestive) heart failure; B96.20 Unspecified Escherichia coli [E. coli] as the cause of diseases classified elsewhere; Z16.12 Extended spectrum beta lactamase (ESBL) resistance; B96.1 Klebsiella pneumoniae [K. pneumoniae] as the cause of diseases classified elsewhere; E11.22 Type 2 diabetes mellitus with diabetic chronic kidney disease; E11.40 Type 2 diabetes mellitus with diabetic neuropathy, unspecified; E11.51 Type 2 diabetes mellitus with diabetic peripheral angiopathy without gangrene; D64.9 Anemia, unspecified; I70.1 Atherosclerosis of renal artery; E78.5 Hyperlipidemia, unspecified; E78.00 Pure hypercholesterolemia, unspecified; Z23 Encounter for immunization; Z79.4 Long term (current) use of insulin; Z87.891 Personal history of nicotine dependence